=== PATIENT | female | born 1985 | race Caucasian/White ===

== ENCOUNTER 2017-03-25 14:21 | Inpatient (IN) | payer OTHER ==
[~2017-03-25] VITALS: Ht 167.6 cm; Wt 102.3 kg
[~2017-03-25 14:21] MED LIST: HYDR-3240 PO; IBUP-1222 PO; Oxycodone Hcl/Acetaminophen PO; PREN1TAB52 PO; RANI150T8 PO
[2017-03-25] MEDS ORDERED: ONDANSETRON ODT 4 MG ONE (14:36)
[2017-03-25] MEDS ORDERED: SODIUM CHLORIDE FLUSH 10ML SYR IVF ONE (15:00)
[2017-03-25] MEDS ORDERED: ONDANSETRON ODT 4 MG PO ONE (15:00)
[2017-03-25] MEDS ORDERED: SODIUM CHLORIDE 0.9% 1,000ML IVBOLUS ONE ×2 (15:00→18:30)
[2017-03-25] MEDS ORDERED: PLEASE ENTER ALLERGIES MC SCH ×2 (15:00)
[2017-03-25 15:05] LABS: ASPARTATE AMINO TRANSFERASE 85 U/L (15-37); BLOOD UREA NITROGEN 9 mg/dL (7-18)
[2017-03-25] MEDS ORDERED: MORPHINE SULFATE 4 MG/ML, 1ML ONE ×2 (16:12→16:39)
[2017-03-25] MEDS ORDERED: ONDANSETRON 2MG/ML, 2ML ONE (16:13)
[2017-03-25] MEDS: MORPHINE SULFATE 4 MG/ML, 1ML IVPush PRN ×2 (16:16→16:41)
[2017-03-25] MEDS ORDERED: ONDANSETRON 2MG/ML, 2ML IVPush ONE (16:30)
[2017-03-25] MEDS ORDERED: LORazepam 2 MG/ML, 1ML ONE (17:01)
[2017-03-25] MEDS ORDERED: LORazepam 2 MG/ML, 1ML IVPush ONE (17:30)
[2017-03-25] MEDS ORDERED: OMNIPAQUE 350 MG/ML, 100ML BOTTLE ONE (17:58)
[2017-03-25] MEDS ORDERED: HYDROmorphone 1 MG/ML, 1ML ONE ×2 (17:59→19:09)
[2017-03-25] MEDS: HYDROmorphone 1 MG/ML, 1ML IVPush PRN ×2 (18:01→19:14)
[2017-03-25 18:05] LABS: HCG UR OBC PASS
[2017-03-25] MEDS ORDERED: CEFTRIAXONE PMX 1GM/50ML 50 ML IV ONE (18:30)
[2017-03-25] MEDS ORDERED: CEFTRIAXONE PMX 1GM/50ML 50 ML ONE (18:53)
[2017-03-25] MEDS ORDERED: hydrALAzine 20 MG/ML, 1ML IVPush PRN (19:30)
[2017-03-25] MEDS ORDERED: LORazepam 2 MG/ML, 1ML IVPush PRN (19:30)
[2017-03-25] MEDS ORDERED: morphine SULFATE 10 MG/ML, 1ML IVPush PRN (19:30)
[2017-03-25 20:05] VITALS: BP 156/98
[2017-03-25] MEDS: HYDROmorphone 1 MG/ML, 1ML IV PRN (22:59)
[2017-03-25] MEDS: SODIUM CHLORIDE 0.9% 1,000 ML IV SCH (23:05)
[2017-03-26 00:41] VITALS: BP 136/72
[2017-03-26] MEDS: HYDROmorphone 1 MG/ML, 1ML IV PRN ×7 (03:07→22:34)
[2017-03-26 06:06] LABS: BLOOD UREA NITROGEN 7 mg/dL (7-18)
[2017-03-26] MEDS: SODIUM CHLORIDE 0.9% 1,000 ML IV SCH ×2 (06:17→15:21)
[2017-03-26] MEDS ORDERED: CEFTRIAXONE PMX 1GM/50ML 50 ML IV SCH (07:00)
[2017-03-26 07:37] VITALS: BP 123/87
[2017-03-26] MEDS: PANTOPRAZOLE 40 MG IV IVPush SCH (07:55)
[2017-03-26] MEDS ORDERED: MAGNESIUM SULFATE PMX 4GM/100M 100 ML IV ONE (10:30)
[2017-03-26 12:45] VITALS: BP 128/81
[2017-03-26] MEDS: PIPERACILLIN/TAZO 3.375 GM in SODIUM CHLORIDE 0.9% 50 ML IV SCH ×2 (14:23→21:40)
[2017-03-26 20:10] VITALS: BP 135/83
[2017-03-26] MEDS ORDERED: MAGNESIUM OXIDE 400 MG TABLET PO SCH (21:00)
[2017-03-27] MEDS: HYDROmorphone 1 MG/ML, 1ML IV PRN (00:23)
[2017-03-27] MEDS ORDERED: HYDROmorphone 1 MG/ML, 1ML ONE (01:24)
[2017-03-27] MEDS: HYDROmorphone 2 MG/ML, 1ML IVPush PRN ×10 (01:28→21:59)
[2017-03-27] MEDS: SODIUM CHLORIDE 0.9% 1,000 ML IV SCH ×3 (03:28→22:00)
[2017-03-27] MEDS: PIPERACILLIN/TAZO 3.375 GM in SODIUM CHLORIDE 0.9% 50 ML IV SCH ×4 (03:28→21:59)
[2017-03-27 03:59] VITALS: BP 124/86
[2017-03-27 06:21] LABS: ASPARTATE AMINO TRANSFERASE 15 U/L (15-37); BLOOD UREA NITROGEN 9 mg/dL (7-18)
[2017-03-27 07:06] VITALS: BP 131/89
[2017-03-27] MEDS: PANTOPRAZOLE 40 MG IV IVPush SCH (07:42)
[2017-03-27 12:12] VITALS: BP 129/88
[2017-03-27 20:03] VITALS: BP 133/88
[2017-03-28] MEDS: HYDROmorphone 2 MG/ML, 1ML IVPush PRN ×8 (01:55→22:22)
[2017-03-28 02:20] VITALS: BP 128/80
[2017-03-28] MEDS: PIPERACILLIN/TAZO 3.375 GM in SODIUM CHLORIDE 0.9% 50 ML IV SCH ×3 (04:09→18:19)
[2017-03-28] MEDS: SODIUM CHLORIDE 0.9% 1,000 ML IV SCH ×2 (06:30→22:22)
[2017-03-28 07:49] VITALS: BP 127/87
[2017-03-28] MEDS: PANTOPRAZOLE 40 MG IV IVPush SCH (08:23)
[2017-03-28] MEDS ORDERED: FENTANYL PF 250 MCG/5ML ONE (09:43)
[2017-03-28] MEDS ORDERED: MIDAZOLAM 1 MG/ML, 2ML ONE (09:43)
[2017-03-28] MEDS ORDERED: DEXAMETHASONE 4 MG/ML, 1ML ONE (09:54)
[2017-03-28] MEDS ORDERED: PROPOFOL 10 MG/ML, 20ML ONE (09:54)
[2017-03-28] MEDS ORDERED: ONDANSETRON 2MG/ML, 2ML ONE (09:54)
[2017-03-28] MEDS ORDERED: SUCCINYLCHOLINE 20 MG/ML, 10ML ONE (09:54)
[2017-03-28] MEDS ORDERED: PIPERACILLIN/TAZO 3.375 GM VIAL ONE (09:54)
[2017-03-28] MEDS ORDERED: hydrALAzine 20 MG/ML, 1ML IV PRN (10:30)
[2017-03-28] MEDS ORDERED: LABETALOL 5MG/ML, 20ML IV PRN (10:30)
[2017-03-28] MEDS ORDERED: KETOROLAC 30 MG/1 ML IV PRN (10:30)
[2017-03-28] MEDS ORDERED: ONDANSETRON 2MG/ML, 2ML IVPush PRN (10:30)
[2017-03-28] MEDS ORDERED: ALBUTEROL/IPRATROPIUM 2.5MG/0.5MG, 3 ML NPPB PRN (10:30)
[2017-03-28] MEDS ORDERED: FENTANYL PF 100 MCG/2ML IV PRN (10:30)
[2017-03-28] MEDS ORDERED: OXYcodone 5 MG/5 ML ORAL.SOL UDC PO PRN (10:30)
[2017-03-28] MEDS ORDERED: MEPERIDINE/PF 25MG/0.5ML IVPush PRN (10:30)
[2017-03-28] MEDS ORDERED: HYDROmorphone 1 MG/ML, 1ML IV PRN (10:30)
[2017-03-28] MEDS ORDERED: MIDAZOLAM 1 MG/ML, 2ML IV PRN (10:30)
[2017-03-28] MEDS ORDERED: PROMETHAZINE 25 MG/ML, 1ML IV PRN (10:30)
[2017-03-28] MEDS ORDERED: HYDROmorphone 2 MG/ML, 1ML ONE (10:56)
[2017-03-28 12:30] VITALS: BP 118/77
[2017-03-28 13:23] LABS: ASPARTATE AMINO TRANSFERASE 15 U/L (15-37); BLOOD UREA NITROGEN 7 mg/dL (7-18)
[2017-03-28] MEDS ORDERED: MIDAZOLAM 1 MG/ML, 5ML ONE (14:30)
[2017-03-28] MEDS ORDERED: NALOXONE 1 MG/ML, 2ML ONE (14:31)
[2017-03-28] MEDS ORDERED: FLUMAZENIL 0.1 MG/1 ML, 5ML ONE (14:31)
[2017-03-28] MEDS ORDERED: FENTANYL PF 100 MCG/2ML ONE (14:31)
[2017-03-28] MEDS ORDERED: LIDOCAINE 1%, 20ML ONE (14:52)
[2017-03-28 20:13] VITALS: BP 127/82
[2017-03-29] MEDS: HYDROmorphone 2 MG/ML, 1ML IVPush PRN ×8 (00:39→23:18)
[2017-03-29] MEDS: PIPERACILLIN/TAZO 3.375 GM in SODIUM CHLORIDE 0.9% 50 ML IV SCH ×4 (00:39→19:27)
[2017-03-29 02:36] VITALS: BP 139/90
[2017-03-29 05:49] LABS: ASPARTATE AMINO TRANSFERASE 20 U/L (15-37); BLOOD UREA NITROGEN 5 mg/dL (7-18)
[2017-03-29] MEDS: SODIUM CHLORIDE 0.9% 1,000 ML IV SCH ×2 (06:49→17:27)
[2017-03-29 08:41] VITALS: BP 141/95
[2017-03-29] MEDS: PANTOPRAZOLE 40 MG IV IVPush SCH (09:19)
[2017-03-29 15:55] VITALS: BP 134/90
[2017-03-29] MEDS: OXYcodone/APAP 5/325MG TABLET PO PRN ×2 (15:58→21:31)
[2017-03-29 20:00] VITALS: BP 139/95
[2017-03-30] MEDS: PIPERACILLIN/TAZO 3.375 GM in SODIUM CHLORIDE 0.9% 50 ML IV SCH ×4 (01:25→19:51)
[2017-03-30 02:49] VITALS: BP 114/79
[2017-03-30] MEDS: OXYcodone/APAP 5/325MG TABLET PO PRN (02:50)
[2017-03-30 05:36] LABS: ASPARTATE AMINO TRANSFERASE 32 U/L (15-37); BLOOD UREA NITROGEN 9 mg/dL (7-18)
[2017-03-30] MEDS: HYDROmorphone 2 MG/ML, 1ML IVPush PRN ×2 (06:17→08:17)
[2017-03-30] MEDS ORDERED: POTASSIUM CHLORIDE 20 MEQ TAB.ER.PRT PO ONE (07:30)
[2017-03-30] MEDS: PANTOPRAZOLE 40 MG IV IVPush SCH (08:17)
[2017-03-30] MEDS: SODIUM CHLORIDE 0.9% 1,000 ML IV SCH (08:17)
[2017-03-30 08:22] VITALS: BP 133/97
[2017-03-30] MEDS ORDERED: OXYcodone/APAP 10/325MG TABLET PO PRN (09:00)
[2017-03-30 14:00] VITALS: BP 147/94
[2017-03-30] MEDS ORDERED: HYDROcodone/APAP 10/325 MG TABLET ONE (14:05)
[2017-03-30] MEDS: HYDROcodone/APAP 10/325 MG TABLET PO PRN ×3 (14:06→22:07)
[2017-03-30 18:39] VITALS: BP 131/93
[2017-03-31] MEDS: HYDROmorphone 2 MG/ML, 1ML IVPush PRN ×3 (00:59→21:05)
[2017-03-31] MEDS: PIPERACILLIN/TAZO 3.375 GM in SODIUM CHLORIDE 0.9% 50 ML IV SCH ×4 (01:58→23:00)
[2017-03-31] MEDS: HYDROcodone/APAP 10/325 MG TABLET PO PRN ×2 (01:59→07:34)
[2017-03-31 02:20] VITALS: BP 143/88
[2017-03-31] MEDS: PANTOPRAZOLE 40 MG IV IVPush SCH (07:34)
[2017-03-31] MEDS ORDERED: DOCUSATE 100 MG CAPSULE PO PRN (08:30)
[2017-03-31 08:40] VITALS: BP 142/96
[2017-03-31 09:10] LABS: ASPARTATE AMINO TRANSFERASE 76 U/L (15-37); BLOOD UREA NITROGEN 3 mg/dL (7-18)
[2017-03-31] MEDS: HYDROmorphone 2MG TABLET PO PRN ×2 (10:39→16:31)
[2017-03-31] MEDS ORDERED: ONDA4TAB10 PO (13:13)
[2017-03-31] MEDS ORDERED: HYDR2TAB40 PO (13:13)
[2017-03-31] MEDS ORDERED: AMOX1TAB64 PO (13:13)
[2017-03-31] MEDS: ONDANSETRON 2MG/ML, 2ML IVPush PRN (13:30)
[2017-03-31] MEDS: PROMETHAZINE 25 MG/ML, 1ML IM PRN ×2 (14:21→17:44)
[2017-03-31 14:25] VITALS: BP 145/98
[2017-03-31] MEDS ORDERED: NS + 40MEQ KCL 1,000 ML IV SCH (14:30)
[2017-03-31 18:54] VITALS: BP 132/87
[2017-04-01] MEDS: HYDROmorphone 2 MG/ML, 1ML IVPush PRN ×5 (02:24→22:07)
[2017-04-01 02:31] VITALS: BP 135/91
[2017-04-01] MEDS: PIPERACILLIN/TAZO 3.375 GM in SODIUM CHLORIDE 0.9% 50 ML IV SCH ×4 (04:40→23:14)
[2017-04-01 06:02] LABS: ASPARTATE AMINO TRANSFERASE 103 U/L (15-37); BLOOD UREA NITROGEN 3 mg/dL (7-18)
[2017-04-01 07:45] VITALS: BP 159/99
[2017-04-01] MEDS: ONDANSETRON 2MG/ML, 2ML IVPush PRN (07:46)
[2017-04-01] MEDS: PANTOPRAZOLE 40 MG IV IVPush SCH (07:46)
[2017-04-01] MEDS ORDERED: OCTREOTIDE 500 MCG/ML, 1ML (0.5MG/ML) SQ SCH (09:30)
[2017-04-01] MEDS: SODIUM CHLORIDE 0.9% 1,000 ML IV SCH ×2 (10:46→18:06)
[2017-04-01] MEDS: DIAZEPAM 5 MG/ML, 2ML IV PRN ×2 (10:59→20:35)
[2017-04-01] MEDS: OCTREOTIDE 100MCG/ML, 1ML (0.1MG/ML) SQ SCH ×2 (11:26→22:09)
[2017-04-01 13:56] VITALS: BP 142/94
[2017-04-01] MEDS: ENOXAPARIN 40 MG/0.4 ML SQ SCH (19:34)
[2017-04-01 20:00] VITALS: BP 154/96
[2017-04-01] MEDS ORDERED: OCTREOTIDE 100MCG/ML, 1ML (0.1MG/ML) SQ SCH (21:00)
[2017-04-02] MEDS: HYDROmorphone 2 MG/ML, 1ML IVPush PRN ×7 (01:44→20:58)
[2017-04-02] MEDS: SODIUM CHLORIDE 0.9% 1,000 ML IV SCH ×4 (01:47→19:45)
[2017-04-02 04:06] VITALS: BP 127/90
[2017-04-02] MEDS: PIPERACILLIN/TAZO 3.375 GM in SODIUM CHLORIDE 0.9% 50 ML IV SCH ×4 (04:44→22:25)
[2017-04-02 06:14] LABS: ASPARTATE AMINO TRANSFERASE 29 U/L (15-37); BLOOD UREA NITROGEN 3 mg/dL (7-18)
[2017-04-02 07:24] VITALS: BP 138/84
[2017-04-02] MEDS: PANTOPRAZOLE 40 MG IV IVPush SCH (08:23)
[2017-04-02] MEDS: SUCRALFATE 1 GM/10 ML UDC PO SCH ×3 (11:09→19:45)
[2017-04-02] MEDS: OCTREOTIDE 100MCG/ML, 1ML (0.1MG/ML) SQ SCH ×2 (11:29→21:03)
[2017-04-02 14:37] VITALS: BP 137/91
[2017-04-02] MEDS: ENOXAPARIN 40 MG/0.4 ML SQ SCH (19:45)
[2017-04-02 20:29] VITALS: BP 138/88
[2017-04-03] MEDS: HYDROmorphone 2 MG/ML, 1ML IVPush PRN ×8 (00:18→23:32)
[2017-04-03 03:04] VITALS: BP 142/96
[2017-04-03] MEDS: PIPERACILLIN/TAZO 3.375 GM in SODIUM CHLORIDE 0.9% 50 ML IV SCH ×4 (04:18→22:22)
[2017-04-03] MEDS: SODIUM CHLORIDE 0.9% 1,000 ML IV SCH ×3 (04:19→21:26)
[2017-04-03 05:20] LABS: ASPARTATE AMINO TRANSFERASE 29 U/L (15-37); BLOOD UREA NITROGEN 3 mg/dL (7-18)
[2017-04-03] MEDS: SUCRALFATE 1 GM/10 ML UDC PO SCH ×4 (06:22→20:19)
[2017-04-03 07:21] VITALS: BP 153/96
[2017-04-03] MEDS: PANTOPRAZOLE 40 MG IV IVPush SCH (07:54)
[2017-04-03] MEDS: OCTREOTIDE 100MCG/ML, 1ML (0.1MG/ML) SQ SCH ×2 (09:58→20:19)
[2017-04-03] MEDS ORDERED: OMNIPAQUE 350 MG/ML, 100ML BOTTLE ONE (12:07)
[2017-04-03 15:00] VITALS: BP 157/104
[2017-04-03] MEDS: ONDANSETRON 2MG/ML, 2ML IVPush PRN (16:02)
[2017-04-03] MEDS: METOPROLOL TARTRATE 25 MG TABLET PO SCH (17:34)
[2017-04-03] MEDS: PROMETHAZINE 25 MG/ML, 1ML IM PRN (18:45)
[2017-04-03 18:59] VITALS: BP 142/93
[2017-04-03] MEDS ORDERED: hydrALAzine 20 MG/ML, 1ML IVPush PRN (19:30)
[2017-04-03] MEDS ORDERED: HYDROmorphone 1 MG/ML, 1ML ONE (20:16)
[2017-04-03] MEDS: ENOXAPARIN 40 MG/0.4 ML SQ SCH (20:19)
[2017-04-04 01:32] VITALS: BP 129/85
[2017-04-04] MEDS ORDERED: HYDROmorphone 1 MG/ML, 1ML ONE ×4 (02:57→12:19)
[2017-04-04] MEDS: HYDROmorphone 2 MG/ML, 1ML IVPush PRN ×8 (03:00→21:28)
[2017-04-04] MEDS: SODIUM CHLORIDE 0.9% 1,000 ML IV SCH ×3 (04:35→20:53)
[2017-04-04] MEDS: PIPERACILLIN/TAZO 3.375 GM in SODIUM CHLORIDE 0.9% 50 ML IV SCH ×3 (04:35→17:55)
[2017-04-04] MEDS: METOPROLOL TARTRATE 25 MG TABLET PO SCH (04:36)
[2017-04-04] MEDS: SUCRALFATE 1 GM/10 ML UDC PO SCH ×4 (06:00→20:54)
[2017-04-04 06:18] LABS: BLOOD UREA NITROGEN 2 mg/dL (7-18)
[2017-04-04 06:27] LABS: ASPARTATE AMINO TRANSFERASE 31 U/L (15-37)
[2017-04-04 08:30] VITALS: BP 136/92
[2017-04-04] MEDS: LISINOPRIL 10 MG TABLET PO SCH (09:21)
[2017-04-04] MEDS: OCTREOTIDE 100MCG/ML, 1ML (0.1MG/ML) SQ SCH ×2 (09:21→20:54)
[2017-04-04] MEDS: PANTOPRAZOLE 40 MG IV IVPush SCH (09:21)
[2017-04-04] MEDS: HYDROcodone/APAP 10/325 MG TABLET PO PRN (14:11)
[2017-04-04 14:16] VITALS: BP 145/90
[2017-04-04] MEDS: ONDANSETRON 2MG/ML, 2ML IVPush PRN (15:43)
[2017-04-04] MEDS: METOPROLOL TARTRATE 50 MG TABLET PO SCH (17:55)
[2017-04-04 19:45] VITALS: BP 144/96
[2017-04-04] MEDS: ENOXAPARIN 40 MG/0.4 ML SQ SCH (20:54)
[2017-04-05] MEDS: PIPERACILLIN/TAZO 3.375 GM in SODIUM CHLORIDE 0.9% 50 ML IV SCH ×4 (00:30→17:47)
[2017-04-05] MEDS: HYDROmorphone 2 MG/ML, 1ML IVPush PRN ×10 (00:30→22:02)
[2017-04-05] MEDS: HYDROcodone/APAP 10/325 MG TABLET PO PRN ×2 (01:30→05:17)
[2017-04-05 01:47] VITALS: BP 127/78
[2017-04-05] MEDS: SODIUM CHLORIDE 0.9% 1,000 ML IV SCH ×3 (03:50→21:13)
[2017-04-05] MEDS: METOPROLOL TARTRATE 50 MG TABLET PO SCH ×2 (06:17→17:47)
[2017-04-05] MEDS: SUCRALFATE 1 GM/10 ML UDC PO SCH ×4 (06:17→21:13)
[2017-04-05] MEDS: LISINOPRIL 10 MG TABLET PO SCH (08:08)
[2017-04-05] MEDS: PANTOPRAZOLE 40 MG IV IVPush SCH (08:09)
[2017-04-05] MEDS: OCTREOTIDE 100MCG/ML, 1ML (0.1MG/ML) SQ SCH ×2 (08:09→21:13)
[2017-04-05 09:14] VITALS: BP 139/89
[2017-04-05 09:39] LABS: ASPARTATE AMINO TRANSFERASE 25 U/L (15-37); BLOOD UREA NITROGEN < 1 mg/dL (7-18)
[2017-04-05 12:40] VITALS: BP 147/97
[2017-04-05 19:13] VITALS: BP 140/97
[2017-04-05] MEDS: ONDANSETRON 2MG/ML, 2ML IVPush PRN (20:06)
[2017-04-05] MEDS: ENOXAPARIN 40 MG/0.4 ML SQ SCH (21:13)
[2017-04-06] MEDS: HYDROmorphone 2 MG/ML, 1ML IVPush PRN ×10 (00:26→22:43)
[2017-04-06] MEDS: PIPERACILLIN/TAZO 3.375 GM in SODIUM CHLORIDE 0.9% 50 ML IV SCH ×4 (00:27→18:32)
[2017-04-06 02:32] VITALS: BP 136/94
[2017-04-06] MEDS: SUCRALFATE 1 GM/10 ML UDC PO SCH ×5 (03:28→20:40)
[2017-04-06] MEDS: SODIUM CHLORIDE 0.9% 1,000 ML IV SCH ×3 (04:25→20:41)
[2017-04-06 05:07] LABS: ASPARTATE AMINO TRANSFERASE 20 U/L (15-37)
[2017-04-06 05:13] LABS: BLOOD UREA NITROGEN < 1 mg/dL (7-18)
[2017-04-06] MEDS: METOPROLOL TARTRATE 50 MG TABLET PO SCH ×2 (06:17→18:24)
[2017-04-06 07:41] VITALS: BP 146/92
[2017-04-06] MEDS: PANTOPRAZOLE 40 MG IV IVPush SCH (08:37)
[2017-04-06] MEDS: LISINOPRIL 10 MG TABLET PO SCH ×3 (08:37→09:00)
[2017-04-06] MEDS: OCTREOTIDE 100MCG/ML, 1ML (0.1MG/ML) SQ SCH ×2 (08:38→20:39)
[2017-04-06] MEDS ORDERED: PROPOFOL 10 MG/ML, 20ML ONE (09:40)
[2017-04-06] MEDS ORDERED: ONDANSETRON 2MG/ML, 2ML ONE (09:40)
[2017-04-06] MEDS ORDERED: SUCCINYLCHOLINE 20 MG/ML, 10ML ONE (09:40)
[2017-04-06] MEDS ORDERED: DEXAMETHASONE 4 MG/ML, 1ML ONE (09:40)
[2017-04-06 09:43] LABS: HCG UR OBC PASS
[2017-04-06] MEDS ORDERED: MIDAZOLAM 1 MG/ML, 2ML IV PRN (10:00)
[2017-04-06] MEDS ORDERED: FENTANYL PF 100 MCG/2ML IV PRN (10:00)
[2017-04-06] MEDS ORDERED: ONDANSETRON 2MG/ML, 2ML IVPush PRN (10:00)
[2017-04-06] MEDS ORDERED: HYDROmorphone 1 MG/ML, 1ML IV PRN (10:00)
[2017-04-06] MEDS ORDERED: MEPERIDINE/PF 25MG/0.5ML IVPush PRN (10:00)
[2017-04-06] MEDS ORDERED: OXYcodone 5 MG/5 ML ORAL.SOL UDC PO PRN (10:00)
[2017-04-06] MEDS ORDERED: OMNIPAQUE 350 MG/ML, 50 ML BOTTLE ONE (10:20)
[2017-04-06 12:30] VITALS: BP 110/82
[2017-04-06 20:22] VITALS: BP 142/94
[2017-04-06] MEDS: ENOXAPARIN 40 MG/0.4 ML SQ SCH (20:39)
[2017-04-07] MEDS: PIPERACILLIN/TAZO 3.375 GM in SODIUM CHLORIDE 0.9% 50 ML IV SCH ×4 (00:11→18:33)
[2017-04-07] MEDS: ONDANSETRON 2MG/ML, 2ML IVPush PRN ×3 (00:11→22:29)
[2017-04-07 00:24] VITALS: BP 132/83
[2017-04-07] MEDS: HYDROmorphone 2 MG/ML, 1ML IVPush PRN ×8 (00:51→22:29)
[2017-04-07] MEDS: SODIUM CHLORIDE 0.9% 1,000 ML IV SCH ×3 (03:53→18:28)
[2017-04-07 04:50] VITALS: BP 136/95
[2017-04-07 06:06] LABS: ASPARTATE AMINO TRANSFERASE 22 U/L (15-37)
[2017-04-07 06:14] LABS: BLOOD UREA NITROGEN < 1 mg/dL (7-18)
[2017-04-07] MEDS: SUCRALFATE 1 GM/10 ML UDC PO SCH ×4 (06:27→22:29)
[2017-04-07] MEDS: METOPROLOL TARTRATE 50 MG TABLET PO SCH ×2 (06:28→18:28)
[2017-04-07 06:35] VITALS: BP 137/90
[2017-04-07] MEDS: OCTREOTIDE 100MCG/ML, 1ML (0.1MG/ML) SQ SCH ×2 (09:24→10:37)
[2017-04-07] MEDS: PANTOPRAZOLE 40 MG IV IVPush SCH (09:24)
[2017-04-07] MEDS: LISINOPRIL 10 MG TABLET PO SCH (09:24)
[2017-04-07] MEDS: HYDROmorphone 2MG TABLET PO PRN (13:27)
[2017-04-07 15:45] VITALS: BP 148/95
[2017-04-07] MEDS: PROMETHAZINE 25 MG/ML, 1ML IM PRN (16:59)
[2017-04-07 22:27] VITALS: BP 147/92
[2017-04-07] MEDS: ENOXAPARIN 40 MG/0.4 ML SQ SCH (22:29)
[2017-04-08] MEDS: HYDROmorphone 2 MG/ML, 1ML IVPush PRN ×10 (00:44→23:06)
[2017-04-08] MEDS: PIPERACILLIN/TAZO 3.375 GM in SODIUM CHLORIDE 0.9% 50 ML IV SCH ×5 (00:44→23:06)
[2017-04-08 02:30] VITALS: BP 146/95
[2017-04-08] MEDS: SODIUM CHLORIDE 0.9% 1,000 ML IV SCH ×4 (02:36→23:10)
[2017-04-08] MEDS: SUCRALFATE 1 GM/10 ML UDC PO SCH ×5 (06:12→21:00)
[2017-04-08] MEDS: METOPROLOL TARTRATE 50 MG TABLET PO SCH ×2 (06:12→18:00)
[2017-04-08 06:22] LABS: ASPARTATE AMINO TRANSFERASE 41 U/L (15-37); BLOOD UREA NITROGEN 1 mg/dL (7-18)
[2017-04-08 08:04] VITALS: BP 135/91
[2017-04-08] MEDS: ONDANSETRON 2MG/ML, 2ML IVPush PRN ×3 (09:01→23:05)
[2017-04-08] MEDS: LISINOPRIL 10 MG TABLET PO SCH (09:02)
[2017-04-08] MEDS: HYDROmorphone 2MG TABLET PO PRN ×2 (09:02→11:09)
[2017-04-08] MEDS: PANTOPRAZOLE 40 MG IV IVPush SCH (09:02)
[2017-04-08 12:39] VITALS: BP 140/84
[2017-04-08] MEDS: PROMETHAZINE 25 MG/ML, 1ML IM PRN ×2 (13:50→20:55)
[2017-04-08] MEDS ORDERED: POTASSIUM CHLORIDE 80 MEQ in SODIUM CHLORIDE 0.9% 1,000 ML IV ONE (14:00)
[2017-04-08 18:57] VITALS: BP 134/90
[2017-04-08] MEDS: ENOXAPARIN 40 MG/0.4 ML SQ SCH (20:55)
[2017-04-08] MEDS ORDERED: HYDROmorphone 1 MG/ML, 1ML ONE (22:51)
[2017-04-09] MEDS ORDERED: HYDROmorphone 1 MG/ML, 1ML ONE ×2 (01:12→03:32)
[2017-04-09] MEDS: HYDROmorphone 2 MG/ML, 1ML IVPush PRN (01:15)
[2017-04-09] MEDS: DIAZEPAM 5 MG/ML, 2ML IV PRN ×2 (01:24→13:05)
[2017-04-09 02:37] VITALS: BP 148/92
[2017-04-09] MEDS: HYDROmorphone 1 MG/ML, 1ML IV PRN ×3 (03:38→08:19)
[2017-04-09 05:35] LABS: BLOOD UREA NITROGEN 1 mg/dL (7-18)
[2017-04-09 05:40] LABS: ASPARTATE AMINO TRANSFERASE 60 U/L (15-37)
[2017-04-09] MEDS: ONDANSETRON 2MG/ML, 2ML IVPush PRN ×4 (05:45→22:18)
[2017-04-09] MEDS: SUCRALFATE 1 GM/10 ML UDC PO SCH ×4 (05:46→22:38)
[2017-04-09] MEDS: PIPERACILLIN/TAZO 3.375 GM in SODIUM CHLORIDE 0.9% 50 ML IV SCH ×3 (05:46→18:39)
[2017-04-09] MEDS: METOPROLOL TARTRATE 50 MG TABLET PO SCH ×2 (05:46→18:00)
[2017-04-09] MEDS: SODIUM CHLORIDE 0.9% 1,000 ML IV SCH ×3 (05:46→17:56)
[2017-04-09 07:53] VITALS: BP 146/96
[2017-04-09] MEDS: PANTOPRAZOLE 40 MG IV IVPush SCH (08:19)
[2017-04-09] MEDS: LISINOPRIL 10 MG TABLET PO SCH (08:20)
[2017-04-09] MEDS ORDERED: TPN PER PHARMACY MC PRN (10:00)
[2017-04-09] MEDS ORDERED: ONDANSETRON 2MG/ML, 2ML ONE (10:04)
[2017-04-09] MEDS: MORPHINE SULFATE 4 MG/ML, 1ML IVPush PRN ×4 (10:15→22:19)
[2017-04-09] MEDS: POTASSIUM CHLORIDE 40 MEQ in SODIUM CHLORIDE 0.9% 500 ML IV SCH ×2 (10:15→17:01)
[2017-04-09 12:46] VITALS: BP 153/88
[2017-04-09] MEDS ORDERED: [UNRECOGNIZED DRUG - OTHER] IV SCH (17:00)
[2017-04-09] MEDS ORDERED: AMINO ACID 10% IV SCH ×2 (17:00)
[2017-04-09] MEDS ORDERED: DEXTROSE 50%, 50ML SYRINGE IVPush PRN (17:00)
[2017-04-09] MEDS ORDERED: FAT EMULSIONS IV SCH ×2 (17:00)
[2017-04-09] MEDS ORDERED: [UNRECOGNIZED DRUG - OTHER] IV SCH (17:00)
[2017-04-09] MEDS ORDERED: DEXTROSE 10% 500 ML IV PRN (17:00)
[2017-04-09] MEDS ORDERED: DEXTROSE 70% IV SCH ×2 (17:00)
[2017-04-09] MEDS: PROMETHAZINE 25 MG/ML, 1ML IM PRN (17:54)
[2017-04-09] MEDS: FILTER, DISP 1.2 MICRON FOR TPN/PVN IV PRN (17:54)
[2017-04-09 19:20] VITALS: BP 145/94
[2017-04-09] MEDS: ENOXAPARIN 40 MG/0.4 ML SQ SCH (22:29)
[2017-04-09] MEDS: INSULIN REGULAR LOW DOSE Q6H X 48HRS SQ-INSULIN SCH ×2 (22:39→23:07)
[2017-04-10] MEDS: PIPERACILLIN/TAZO 3.375 GM in SODIUM CHLORIDE 0.9% 50 ML IV SCH ×4 (00:44→18:52)
[2017-04-10] MEDS: MORPHINE SULFATE 4 MG/ML, 1ML IVPush PRN ×7 (01:35→22:55)
[2017-04-10 02:00] VITALS: BP 133/84
[2017-04-10] MEDS: PROMETHAZINE 25 MG/ML, 1ML IM PRN (02:58)
[2017-04-10] MEDS: INSULIN REGULAR LOW DOSE Q6H X 48HRS SQ-INSULIN SCH ×3 (05:45→17:00)
[2017-04-10 06:27] LABS: ASPARTATE AMINO TRANSFERASE 20 U/L (15-37); BLOOD UREA NITROGEN 4 mg/dL (7-18)
[2017-04-10] MEDS: METOPROLOL TARTRATE 50 MG TABLET PO SCH ×2 (06:45→18:00)
[2017-04-10] MEDS: SUCRALFATE 1 GM/10 ML UDC PO SCH ×4 (06:46→22:55)
[2017-04-10 07:49] VITALS: BP 132/85
[2017-04-10] MEDS: SODIUM PHOSPHATE 10 MMOL in SODIUM CHLORIDE 0.9% 500 ML IV ONE ×2 (08:30→15:43)
[2017-04-10] MEDS ORDERED: MAGNESIUM SULFATE PMX 4GM/100M 100 ML IV ONE (08:30)
[2017-04-10] MEDS: ONDANSETRON 2MG/ML, 2ML IVPush PRN ×3 (08:39→18:52)
[2017-04-10] MEDS: SODIUM CHLORIDE 0.9% 1,000 ML IV SCH (08:39)
[2017-04-10] MEDS: LISINOPRIL 10 MG TABLET PO SCH (09:00)
[2017-04-10] MEDS: HYDROcodone/APAP 10/325 MG TABLET PO PRN (09:38)
[2017-04-10] MEDS: PANTOPRAZOLE 40 MG IV IVPush SCH (09:50)
[2017-04-10 13:52] VITALS: BP 120/79
[2017-04-10] MEDS ORDERED: AMINO ACID 10% IV SCH (17:00)
[2017-04-10] MEDS ORDERED: FAT EMULSIONS IV SCH (17:00)
[2017-04-10] MEDS ORDERED: DEXTROSE 70% IV SCH (17:00)
[2017-04-10] MEDS ORDERED: [UNRECOGNIZED DRUG - OTHER] IV SCH (17:00)
[2017-04-10] MEDS: DIAZEPAM 5 MG/ML, 2ML IV PRN (17:13)
[2017-04-10 19:30] VITALS: BP 133/85
[2017-04-10] MEDS ORDERED: HYDROmorphone 1 MG/ML, 1ML IV ONE ×2 (20:00→21:30)
[2017-04-10] MEDS ORDERED: VANCOMYCIN PER PHARMACY MC PRN (20:00)
[2017-04-10] MEDS ORDERED: PHARMACOKINETIC MONITORING MC PRN (20:30)
[2017-04-10] MEDS ORDERED: PHARMACOKINETIC CONSULTATION MC ONE (20:30)
[2017-04-10] MEDS: VANCOMYCIN 1,900 MG in SODIUM CHLORIDE 0.9% 250 ML IV SCH (22:53)
[2017-04-10] MEDS: ENOXAPARIN 40 MG/0.4 ML SQ SCH (23:04)
[2017-04-11] MEDS: ONDANSETRON 2MG/ML, 2ML IVPush PRN ×5 (00:18→21:18)
[2017-04-11] MEDS: PIPERACILLIN/TAZO 3.375 GM in SODIUM CHLORIDE 0.9% 50 ML IV SCH ×3 (00:54→12:18)
[2017-04-11] MEDS: DIAZEPAM 5 MG/ML, 2ML IV PRN (01:12)
[2017-04-11] MEDS: MORPHINE SULFATE 4 MG/ML, 1ML IVPush PRN ×3 (03:02→09:10)
[2017-04-11 03:35] VITALS: BP 131/82
[2017-04-11] MEDS: METOPROLOL TARTRATE 50 MG TABLET PO SCH ×2 (04:57→18:00)
[2017-04-11] MEDS: SUCRALFATE 1 GM/10 ML UDC PO SCH ×4 (04:57→20:38)
[2017-04-11] MEDS: PROMETHAZINE 25 MG/ML, 1ML IM PRN ×2 (05:04→14:46)
[2017-04-11] MEDS: INSULIN REGULAR LOW DOSE Q6H X 48HRS SQ-INSULIN SCH ×3 (05:23→17:00)
[2017-04-11 05:45] LABS: PATH.CAST-FLAG NOT PRESENT; SPERM-FLAG NOT PRESENT; SRC-FLAG NOT PRESENT; XTAL-FLAG NOT PRESENT; YLC-FLAG NOT PRESENT
[2017-04-11 06:15] LABS: ASPARTATE AMINO TRANSFERASE 29 U/L (15-37); BLOOD UREA NITROGEN 7 mg/dL (7-18)
[2017-04-11] MEDS: LISINOPRIL 10 MG TABLET PO SCH (07:56)
[2017-04-11] MEDS: PANTOPRAZOLE 40 MG IV IVPush SCH (07:56)
[2017-04-11] MEDS: VANCOMYCIN 1,900 MG in SODIUM CHLORIDE 0.9% 250 ML IV SCH ×2 (08:04→20:30)
[2017-04-11 08:12] VITALS: BP 135/79
[2017-04-11] MEDS ORDERED: HYDROmorphone 1 MG/ML, 1ML ONE ×3 (10:32→14:38)
[2017-04-11] MEDS: HYDROmorphone 2 MG/ML, 1ML IVPush PRN ×2 (10:35→12:49)
[2017-04-11] MEDS ORDERED: OMNIPAQUE 350 MG/ML, 100ML BOTTLE ONE (11:03)
[2017-04-11 14:50] VITALS: BP 151/99
[2017-04-11] MEDS ORDERED: HYDROmorphone 2 MG/ML, 1ML IVPush PRN (15:00)
[2017-04-11] MEDS ORDERED: HYDROmorphone 1 MG/ML, 1ML IVPush PRN (15:00)
[2017-04-11] MEDS: FILTER, DISP 1.2 MICRON FOR TPN/PVN IV PRN (16:33)
[2017-04-11] MEDS: SODIUM CHLORIDE 0.9% 1,000 ML IV SCH (16:35)
[2017-04-11] MEDS ORDERED: DEXTROSE 70% IV SCH (17:00)
[2017-04-11] MEDS ORDERED: [UNRECOGNIZED DRUG - OTHER] IV SCH (17:00)
[2017-04-11] MEDS ORDERED: FAT EMULSIONS IV SCH (17:00)
[2017-04-11] MEDS ORDERED: AMINO ACID 10% IV SCH (17:00)
[2017-04-11] MEDS: HYDROmorphone 1 MG/ML, 1ML IV PRN ×4 (17:01→23:23)
[2017-04-11] MEDS: PIPERACILLIN/TAZO/PMX 3.375GM 50 ML IV SCH ×2 (18:21→23:24)
[2017-04-11 20:00] VITALS: BP 162/97
[2017-04-11] MEDS: ENOXAPARIN 40 MG/0.4 ML SQ SCH (20:30)
[2017-04-11] MEDS ORDERED: ACETAMINOPHEN 650 MG SUPP PR ONE (20:30)
[2017-04-12] MEDS: HYDROmorphone 1 MG/ML, 1ML IV PRN ×10 (01:24→21:44)
[2017-04-12] MEDS: ONDANSETRON 2MG/ML, 2ML IVPush PRN ×4 (01:24→19:04)
[2017-04-12 02:01] VITALS: BP 140/90
[2017-04-12 04:09] LABS: BLOOD UREA NITROGEN 9 mg/dL (7-18)
[2017-04-12 04:10] LABS: ASPARTATE AMINO TRANSFERASE 30 U/L (15-37)
[2017-04-12] MEDS: PIPERACILLIN/TAZO/PMX 3.375GM 50 ML IV SCH ×3 (05:28→21:43)
[2017-04-12] MEDS: METOPROLOL TARTRATE 50 MG TABLET PO SCH ×2 (06:00→18:10)
[2017-04-12] MEDS: SUCRALFATE 1 GM/10 ML UDC PO SCH ×4 (07:00→21:43)
[2017-04-12 07:10] VITALS: BP 139/85
[2017-04-12] MEDS: PANTOPRAZOLE 40 MG IV IVPush SCH (07:23)
[2017-04-12] MEDS: LISINOPRIL 10 MG TABLET PO SCH (08:44)
[2017-04-12] MEDS: VANCOMYCIN 1,900 MG in SODIUM CHLORIDE 0.9% 250 ML IV SCH ×2 (08:44→23:33)
[2017-04-12] MEDS: INSULIN REGULAR LOW DOSE QDAY SQ-INSULIN SCH (08:54)
[2017-04-12] MEDS: SODIUM CHLORIDE 0.9% 1,000 ML IV SCH (11:29)
[2017-04-12] MEDS ORDERED: FENTANYL PF 100 MCG/2ML ONE (12:15)
[2017-04-12] MEDS ORDERED: MIDAZOLAM 1 MG/ML, 5ML ONE (12:15)
[2017-04-12] MEDS ORDERED: NALOXONE 1 MG/ML, 2ML ONE (12:15)
[2017-04-12] MEDS ORDERED: LIDOCAINE 2%, 20ML ONE ×3 (12:18→13:17)
[2017-04-12 14:30] VITALS: BP 126/86
[2017-04-12] MEDS ORDERED: DEXTROSE 70% IV SCH (17:00)
[2017-04-12] MEDS ORDERED: FILTER, DISP 1.2 MICRON FOR TPN/PVN IV PRN (17:00)
[2017-04-12] MEDS ORDERED: [UNRECOGNIZED DRUG - OTHER] IV SCH (17:00)
[2017-04-12] MEDS ORDERED: AMINO ACID 10% IV SCH (17:00)
[2017-04-12] MEDS ORDERED: FAT EMULSIONS IV SCH (17:00)
[2017-04-12 18:39] VITALS: BP 139/92
[2017-04-13] MEDS: HYDROmorphone 1 MG/ML, 1ML IV PRN ×11 (00:09→23:07)
[2017-04-13 01:53] VITALS: BP 137/93
[2017-04-13] MEDS: PIPERACILLIN/TAZO/PMX 3.375GM 50 ML IV SCH ×3 (02:14→20:28)
[2017-04-13 06:30] VITALS: BP 127/90
[2017-04-13 08:22] LABS: ASPARTATE AMINO TRANSFERASE 35 U/L (15-37); BLOOD UREA NITROGEN 14 mg/dL (7-18)
[2017-04-13] MEDS: SUCRALFATE 1 GM/10 ML UDC PO SCH ×4 (08:30→20:28)
[2017-04-13] MEDS ORDERED: HYDROcodone/APAP 7.5-325MG/15ML UDC PO PRN (08:30)
[2017-04-13] MEDS: METOPROLOL TARTRATE 50 MG TABLET PO SCH ×2 (08:31→18:09)
[2017-04-13] MEDS: PANTOPRAZOLE 40 MG IV IVPush SCH (08:57)
[2017-04-13] MEDS: VANCOMYCIN 1,900 MG in SODIUM CHLORIDE 0.9% 250 ML IV SCH (08:57)
[2017-04-13] MEDS: LISINOPRIL 10 MG TABLET PO SCH (08:57)
[2017-04-13] MEDS: INSULIN REGULAR LOW DOSE QDAY SQ-INSULIN SCH (09:00)
[2017-04-13] MEDS: ONDANSETRON 2MG/ML, 2ML IVPush PRN ×2 (09:16→14:20)
[2017-04-13 12:25] VITALS: BP 93/68
[2017-04-13] MEDS: MICAFUNGIN 100 MG in SODIUM CHLORIDE 0.9% 100 ML IV SCH (16:29)
[2017-04-13] MEDS: FILTER, DISP 1.2 MICRON FOR TPN/PVN IV PRN (16:33)
[2017-04-13] MEDS ORDERED: DEXTROSE 70% IV SCH (17:00)
[2017-04-13] MEDS ORDERED: AMINO ACID 10% IV SCH (17:00)
[2017-04-13] MEDS ORDERED: [UNRECOGNIZED DRUG - OTHER] IV SCH (17:00)
[2017-04-13] MEDS ORDERED: FAT EMULSIONS IV SCH (17:00)
[2017-04-13 18:10] VITALS: BP 131/83
[2017-04-13 19:13] VITALS: BP 122/88
[2017-04-13] MEDS: SODIUM CHLORIDE 0.9% 1,000 ML IV SCH (20:05)
[2017-04-13] MEDS ORDERED: PIPERACILLIN/TAZO/PMX 3.375GM 50 ML IV SCH (20:30)
[2017-04-14] MEDS: HYDROmorphone 1 MG/ML, 1ML IV PRN ×11 (01:12→22:56)
[2017-04-14] MEDS: PIPERACILLIN/TAZO/PMX 3.375GM 50 ML IV SCH ×2 (02:16→08:59)
[2017-04-14 02:54] VITALS: BP 120/85
[2017-04-14] MEDS: ONDANSETRON 2MG/ML, 2ML IVPush PRN ×3 (04:33→19:44)
[2017-04-14 05:08] LABS: ASPARTATE AMINO TRANSFERASE 50 U/L (15-37); BLOOD UREA NITROGEN 28 mg/dL (7-18)
[2017-04-14] MEDS: SUCRALFATE 1 GM/10 ML UDC PO SCH ×4 (06:46→21:47)
[2017-04-14] MEDS: METOPROLOL TARTRATE 50 MG TABLET PO SCH ×2 (06:47→19:43)
[2017-04-14 07:55] VITALS: BP 109/76
[2017-04-14] MEDS ORDERED: HYDROmorphone 2 MG/ML, 1ML ONE ×3 (08:07→11:57)
[2017-04-14] MEDS: PANTOPRAZOLE 40 MG IV IVPush SCH (08:15)
[2017-04-14] MEDS: LISINOPRIL 10 MG TABLET PO SCH (08:15)
[2017-04-14] MEDS: DIAZEPAM 5 MG/ML, 2ML IV PRN (08:59)
[2017-04-14] MEDS: INSULIN REGULAR LOW DOSE QDAY SQ-INSULIN SCH (09:00)
[2017-04-14] MEDS ORDERED: SODIUM CHLORIDE 0.9% 1,000 ML IV ONE (09:30)
[2017-04-14] MEDS ORDERED: LACTATED RINGERS 1,000 ML IV SCH (09:30)
[2017-04-14] MEDS ORDERED: LACTATED RINGERS 1,000 ML IVBOLUS ONE (14:00)
[2017-04-14] MEDS: MICAFUNGIN 100 MG in SODIUM CHLORIDE 0.9% 100 ML IV SCH (14:18)
[2017-04-14 15:35] VITALS: BP 122/85
[2017-04-14] MEDS ORDERED: DEXTROSE 70% IV SCH (17:00)
[2017-04-14] MEDS ORDERED: ACETAMINOPHEN 650 MG SUPP PR PRN (17:00)
[2017-04-14] MEDS ORDERED: AMINO ACID 10% IV SCH (17:00)
[2017-04-14] MEDS ORDERED: FAT EMULSIONS IV SCH (17:00)
[2017-04-14] MEDS ORDERED: [UNRECOGNIZED DRUG - OTHER] IV SCH (17:00)
[2017-04-14] MEDS: PIPERACILLIN/TAZO/PMX 2.25GM 50 ML IVPB SCH ×2 (17:23→22:56)
[2017-04-14 18:36] VITALS: BP 147/90
[2017-04-14] MEDS: FILTER, DISP 1.2 MICRON FOR TPN/PVN IV PRN (19:43)
[2017-04-14 20:39] LABS: POTASSIUM,URINE RANDOM 16 mmol/L
[2017-04-15] MEDS: HYDROmorphone 1 MG/ML, 1ML IV PRN ×10 (01:47→21:59)
[2017-04-15] MEDS: ONDANSETRON 2MG/ML, 2ML IVPush PRN ×2 (02:40→19:58)
[2017-04-15 02:46] VITALS: BP 135/88
[2017-04-15] MEDS: PIPERACILLIN/TAZO/PMX 2.25GM 50 ML IVPB SCH ×2 (05:26→11:08)
[2017-04-15 05:33] LABS: ASPARTATE AMINO TRANSFERASE 52 U/L (15-37)
[2017-04-15 05:39] LABS: BLOOD UREA NITROGEN 40 mg/dL (7-18)
[2017-04-15] MEDS: METOPROLOL TARTRATE 50 MG TABLET PO SCH ×2 (06:24→16:21)
[2017-04-15] MEDS ORDERED: [UNRECOGNIZED DRUG - REMARK] MC SCH ×2 (07:00)
[2017-04-15 07:18] VITALS: BP 136/92
[2017-04-15] MEDS: SUCRALFATE 1 GM/10 ML UDC PO SCH ×4 (08:48→21:10)
[2017-04-15] MEDS ORDERED: SODIUM CHLORIDE 0.45% 1,000 ML IV SCH ×2 (08:48→09:00)
[2017-04-15] MEDS: PANTOPRAZOLE 40 MG IV IVPush SCH (08:49)
[2017-04-15] MEDS: LISINOPRIL 10 MG TABLET PO SCH (08:49)
[2017-04-15] MEDS ORDERED: PHARMACY MAY ADJ FOR RENAL FX MC PRN (09:00)
[2017-04-15] MEDS ORDERED: ENOXAPARIN 30 MG/0.3 ML SQ SCH (09:00)
[2017-04-15] MEDS: INSULIN REGULAR LOW DOSE QDAY SQ-INSULIN SCH (09:02)
[2017-04-15] MEDS: HEPARIN 5,000 UNITS/ML, 1ML SQ SCH ×2 (09:14→21:10)
[2017-04-15] MEDS: DIAZEPAM 5 MG/ML, 2ML IV PRN ×2 (11:52→21:10)
[2017-04-15] MEDS: SODIUM CHLORIDE 0.45% 1,000 ML IV SCH (13:19)
[2017-04-15 13:41] VITALS: BP 125/85
[2017-04-15] MEDS: MICAFUNGIN 100 MG in SODIUM CHLORIDE 0.9% 100 ML IV SCH (14:14)
[2017-04-15 16:19] VITALS: BP 129/89
[2017-04-15] MEDS ORDERED: DEXTROSE 70% IV SCH (17:00)
[2017-04-15] MEDS ORDERED: [UNRECOGNIZED DRUG - OTHER] IV SCH (17:00)
[2017-04-15] MEDS ORDERED: FAT EMULSIONS IV SCH (17:00)
[2017-04-15] MEDS ORDERED: AMINO ACID 10% IV SCH (17:00)
[2017-04-15] MEDS ORDERED: PIPERACILLIN/TAZO 2.25 GM in SODIUM CHLORIDE 0.9% 50 ML IV SCH (20:00)
[2017-04-15] MEDS: PIPERACILLIN/TAZO 2.25 GM in SODIUM CHLORIDE 0.9% 100 ML IV SCH (20:08)
[2017-04-15 20:17] VITALS: BP 140/98
[2017-04-16] MEDS: ONDANSETRON 2MG/ML, 2ML IVPush PRN ×4 (00:08→22:05)
[2017-04-16] MEDS: SODIUM CHLORIDE 0.45% 1,000 ML IV SCH ×3 (01:30→23:38)
[2017-04-16] MEDS: HYDROmorphone 1 MG/ML, 1ML IV PRN ×3 (01:58→04:12)
[2017-04-16 03:00] VITALS: BP 146/102
[2017-04-16] MEDS: PIPERACILLIN/TAZO 2.25 GM in SODIUM CHLORIDE 0.9% 100 ML IV SCH ×3 (04:26→22:17)
[2017-04-16 04:34] LABS: ASPARTATE AMINO TRANSFERASE 55 U/L (15-37); BLOOD UREA NITROGEN 47 mg/dL (7-18)
[2017-04-16] MEDS: METOPROLOL TARTRATE 50 MG TABLET PO SCH ×2 (06:00→17:00)
[2017-04-16] MEDS: LISINOPRIL 10 MG TABLET PO SCH ×2 (08:00→08:30)
[2017-04-16] MEDS: PANTOPRAZOLE 40 MG IV IVPush SCH (08:00)
[2017-04-16] MEDS: HEPARIN 5,000 UNITS/ML, 1ML SQ SCH ×2 (08:00→22:17)
[2017-04-16] MEDS: SUCRALFATE 1 GM/10 ML UDC PO SCH ×5 (08:35→17:00)
[2017-04-16] MEDS: DIAZEPAM 5 MG/ML, 2ML IV PRN (11:40)
[2017-04-16] MEDS ORDERED: FENTANYL 1500 MCG/30 ML PCA IV PRN (12:30)
[2017-04-16] MEDS: MICAFUNGIN 100 MG in SODIUM CHLORIDE 0.9% 100 ML IV SCH (15:00)
[2017-04-16] MEDS: AMINO ACID 10% IV SCH (17:15)
[2017-04-16] MEDS: DEXTROSE 70% IV SCH (17:15)
[2017-04-16] MEDS: [UNRECOGNIZED DRUG - OTHER] IV SCH (17:15)
[2017-04-16] MEDS: FAT EMULSIONS IV SCH (17:15)
[2017-04-17] MEDS: DIAZEPAM 5 MG/ML, 2ML IV PRN ×2 (00:20→12:30)
[2017-04-17] MEDS: PROMETHAZINE 25 MG/ML, 1ML IM PRN ×2 (00:53→19:07)
[2017-04-17] MEDS: INSULIN REGULAR LOW DOSE QDAY SQ-INSULIN SCH ×2 (04:43→09:00)
[2017-04-17] MEDS: ONDANSETRON 2MG/ML, 2ML IVPush PRN ×5 (06:22→23:26)
[2017-04-17] MEDS: PIPERACILLIN/TAZO 2.25 GM in SODIUM CHLORIDE 0.9% 100 ML IV SCH ×3 (06:22→17:45)
[2017-04-17] MEDS: METOPROLOL TARTRATE 50 MG TABLET PO SCH ×2 (06:23→18:00)
[2017-04-17] MEDS: SODIUM CHLORIDE 0.45% 1,000 ML IV SCH (06:24)
[2017-04-17] MEDS: PANTOPRAZOLE 40 MG IV IVPush SCH (07:30)
[2017-04-17] MEDS: HEPARIN 5,000 UNITS/ML, 1ML SQ SCH (08:00)
[2017-04-17] MEDS: LISINOPRIL 10 MG TABLET PO SCH (09:00)
[2017-04-17] MEDS: HYDROmorphone 1 MG/ML, 1ML IV PRN (10:35)
[2017-04-17] MEDS: SUCRALFATE 1 GM/10 ML UDC PO SCH ×3 (11:00→21:00)
[2017-04-17] MEDS ORDERED: FENTANYL 1500 MCG/30 ML PCA IV PRN (13:30)
[2017-04-17] MEDS ORDERED: HYDROmorphone PCA 30 MG/30 ML ONE (13:45)
[2017-04-17 14:37] VITALS: BP 145/92
[2017-04-17] MEDS: MICAFUNGIN 100 MG in SODIUM CHLORIDE 0.9% 100 ML IV SCH (14:59)
[2017-04-17] MEDS ORDERED: FILTER, DISP 1.2 MICRON FOR TPN/PVN IV SCH (17:00)
[2017-04-17] MEDS: AMINO ACID 10% IV SCH (19:05)
[2017-04-17] MEDS: [UNRECOGNIZED DRUG - OTHER] IV SCH (19:05)
[2017-04-17] MEDS: DEXTROSE 70% IV SCH (19:05)
[2017-04-17] MEDS: FAT EMULSIONS IV SCH (19:05)
[2017-04-17 20:07] VITALS: BP 155/96
[2017-04-18] MEDS: HEPARIN 5,000 UNITS/ML, 1ML SQ SCH ×2 (00:17→12:10)
[2017-04-18] MEDS: PIPERACILLIN/TAZO 2.25 GM in SODIUM CHLORIDE 0.9% 100 ML IV SCH ×2 (00:17→08:00)
[2017-04-18] MEDS: DIAZEPAM 5 MG/ML, 2ML IV PRN (00:18)
[2017-04-18] MEDS: METOPROLOL TARTRATE 50 MG TABLET PO SCH ×3 (00:18→17:23)
[2017-04-18] MEDS: SUCRALFATE 1 GM/10 ML UDC PO SCH ×5 (00:18→21:11)
[2017-04-18] MEDS: SODIUM CHLORIDE 0.45% 1,000 ML IV SCH (00:27)
[2017-04-18 02:18] VITALS: BP 130/83
[2017-04-18 06:22] LABS: ASPARTATE AMINO TRANSFERASE 36 U/L (15-37); BLOOD UREA NITROGEN 52 mg/dL (7-18)
[2017-04-18 06:50] VITALS: BP 134/83
[2017-04-18] MEDS: LISINOPRIL 10 MG TABLET PO SCH (07:43)
[2017-04-18] MEDS: INSULIN REGULAR LOW DOSE QDAY SQ-INSULIN SCH (07:45)
[2017-04-18] MEDS: PANTOPRAZOLE 40 MG IV IVPush SCH (08:13)
[2017-04-18] MEDS: PIPERACILLIN/TAZO/PMX 2.25GM 50 ML IVPB SCH ×2 (09:50→18:01)
[2017-04-18] MEDS: ONDANSETRON 2MG/ML, 2ML IVPush PRN ×3 (09:51→21:11)
[2017-04-18 13:15] VITALS: BP 138/85
[2017-04-18] MEDS: MICAFUNGIN 100 MG in SODIUM CHLORIDE 0.9% 100 ML IV SCH (14:38)
[2017-04-18] MEDS ORDERED: DEXTROSE 70% IV SCH (17:00)
[2017-04-18] MEDS ORDERED: [UNRECOGNIZED DRUG - OTHER] IV SCH (17:00)
[2017-04-18] MEDS ORDERED: FILTER, DISP 1.2 MICRON FOR TPN/PVN IV SCH (17:00)
[2017-04-18] MEDS ORDERED: FAT EMULSIONS IV SCH (17:00)
[2017-04-18] MEDS ORDERED: AMINO ACID 10% IV SCH (17:00)
[2017-04-18 18:54] VITALS: BP 146/91
[2017-04-19] MEDS: PIPERACILLIN/TAZO/PMX 2.25GM 50 ML IVPB SCH ×3 (00:31→17:43)
[2017-04-19] MEDS: DIAZEPAM 5 MG/ML, 2ML IV PRN ×3 (00:31→23:02)
[2017-04-19] MEDS: HEPARIN 5,000 UNITS/ML, 1ML SQ SCH ×2 (00:31→11:58)
[2017-04-19 01:38] VITALS: BP 148/93
[2017-04-19] MEDS: HYDROmorphone PCA 30 MG/30 ML IV PRN (05:17)
[2017-04-19] MEDS: ONDANSETRON 2MG/ML, 2ML IVPush PRN ×3 (05:57→20:22)
[2017-04-19] MEDS: METOPROLOL TARTRATE 50 MG TABLET PO SCH ×2 (06:00→17:43)
[2017-04-19] MEDS: SUCRALFATE 1 GM/10 ML UDC PO SCH ×4 (06:40→21:00)
[2017-04-19 06:41] LABS: BLOOD UREA NITROGEN 51 mg/dL (7-18)
[2017-04-19 06:44] VITALS: BP 145/89
[2017-04-19] MEDS: INSULIN REGULAR LOW DOSE QDAY SQ-INSULIN SCH (09:15)
[2017-04-19] MEDS: PANTOPRAZOLE 40 MG IV IVPush SCH (09:15)
[2017-04-19 14:24] VITALS: BP 157/96
[2017-04-19] MEDS: MICAFUNGIN 100 MG in SODIUM CHLORIDE 0.9% 100 ML IV SCH (14:52)
[2017-04-19 15:50] LABS: ASPARTATE AMINO TRANSFERASE 33 U/L (15-37); BLOOD UREA NITROGEN 51 mg/dL (7-18)
[2017-04-19] MEDS ORDERED: [UNRECOGNIZED DRUG - OTHER] IV SCH (17:00)
[2017-04-19] MEDS ORDERED: DEXTROSE 70% IV SCH (17:00)
[2017-04-19] MEDS ORDERED: FAT EMULSIONS IV SCH (17:00)
[2017-04-19] MEDS ORDERED: AMINO ACID 10% IV SCH (17:00)
[2017-04-19] MEDS: SODIUM CHLORIDE 0.45% 1,000 ML IV SCH (17:43)
[2017-04-19] MEDS: FILTER, DISP 1.2 MICRON FOR TPN/PVN IV SCH (17:43)
[2017-04-19 18:32] VITALS: BP 142/95
[2017-04-20] MEDS: ONDANSETRON 2MG/ML, 2ML IVPush PRN ×5 (00:57→22:08)
[2017-04-20] MEDS: PIPERACILLIN/TAZO/PMX 2.25GM 50 ML IVPB SCH ×3 (00:57→18:11)
[2017-04-20] MEDS: HEPARIN 5,000 UNITS/ML, 1ML SQ SCH ×2 (00:57→11:07)
[2017-04-20] MEDS: MEPERIDINE/PF 50 MG/ML IM PRN ×4 (01:01→21:51)
[2017-04-20 02:07] VITALS: BP_SYST 142; BP_SYST 153; BP_DIAS 101; BP_DIAS 97
[2017-04-20] MEDS: METOPROLOL TARTRATE 50 MG TABLET PO SCH ×2 (06:00→18:11)
[2017-04-20] MEDS: HYDROmorphone PCA 30 MG/30 ML IV PRN (06:13)
[2017-04-20 06:23] LABS: ASPARTATE AMINO TRANSFERASE 78 U/L (15-37); BLOOD UREA NITROGEN 46 mg/dL (7-18)
[2017-04-20] MEDS: SUCRALFATE 1 GM/10 ML UDC PO SCH ×4 (06:35→21:51)
[2017-04-20 07:38] VITALS: BP 145/96
[2017-04-20] MEDS ORDERED: [UNRECOGNIZED DRUG - OTHER] IV SCH ×2 (08:30→17:00)
[2017-04-20] MEDS ORDERED: AMINO ACID 10% IV SCH ×2 (08:30→17:00)
[2017-04-20] MEDS ORDERED: DEXTROSE 70% IV SCH ×2 (08:30→17:00)
[2017-04-20] MEDS ORDERED: FAT EMULSIONS IV SCH ×2 (08:30→17:00)
[2017-04-20] MEDS: INSULIN REGULAR LOW DOSE QDAY SQ-INSULIN SCH (09:20)
[2017-04-20] MEDS: PANTOPRAZOLE 40 MG IV IVPush SCH (09:20)
[2017-04-20] MEDS: SODIUM CHLORIDE 0.45% 1,000 ML IV SCH ×2 (11:07→18:38)
[2017-04-20] MEDS: MICAFUNGIN 100 MG in SODIUM CHLORIDE 0.9% 100 ML IV SCH (14:00)
[2017-04-20 15:40] VITALS: BP_SYST 155; BP_SYST 156; BP_DIAS 104; BP_DIAS 96
[2017-04-20] MEDS: FILTER, DISP 1.2 MICRON FOR TPN/PVN IV SCH (18:11)
[2017-04-20 20:30] VITALS: BP 151/95
[2017-04-21] MEDS: HEPARIN 5,000 UNITS/ML, 1ML SQ SCH ×2 (00:49→11:34)
[2017-04-21] MEDS: DIAZEPAM 5 MG/ML, 2ML IV PRN ×2 (01:22→14:42)
[2017-04-21] MEDS: PIPERACILLIN/TAZO/PMX 2.25GM 50 ML IVPB SCH ×3 (01:25→17:08)
[2017-04-21 01:47] VITALS: BP 98/54
[2017-04-21] MEDS: ONDANSETRON 2MG/ML, 2ML IVPush PRN ×4 (04:42→21:28)
[2017-04-21] MEDS: SODIUM CHLORIDE 0.45% 1,000 ML IV SCH ×2 (04:43→14:44)
[2017-04-21] MEDS: MEPERIDINE/PF 50 MG/ML IM PRN ×4 (04:43→21:28)
[2017-04-21 05:01] LABS: BLOOD UREA NITROGEN 38 mg/dL (7-18)
[2017-04-21 06:15] VITALS: BP 145/94
[2017-04-21] MEDS: SUCRALFATE 1 GM/10 ML UDC PO SCH ×4 (06:28→20:40)
[2017-04-21] MEDS: METOPROLOL TARTRATE 50 MG TABLET PO SCH ×2 (06:28→17:08)
[2017-04-21] MEDS: HYDROmorphone PCA 30 MG/30 ML IV PRN (06:29)
[2017-04-21 07:51] VITALS: BP 146/93
[2017-04-21] MEDS ORDERED: MAGNESIUM SULFATE PMX 2GM/50ML 50 ML IV ONE (08:30)
[2017-04-21] MEDS: PANTOPRAZOLE 40 MG IV IVPush SCH (09:25)
[2017-04-21] MEDS: INSULIN REGULAR LOW DOSE QDAY SQ-INSULIN SCH (09:30)
[2017-04-21 12:38] VITALS: BP 152/98
[2017-04-21] MEDS: MICAFUNGIN 100 MG in SODIUM CHLORIDE 0.9% 100 ML IV SCH (14:42)
[2017-04-21] MEDS ORDERED: AMINO ACID 10% IV SCH (17:00)
[2017-04-21] MEDS ORDERED: [UNRECOGNIZED DRUG - OTHER] IV SCH (17:00)
[2017-04-21] MEDS ORDERED: FAT EMULSIONS IV SCH (17:00)
[2017-04-21] MEDS ORDERED: DEXTROSE 70% IV SCH (17:00)
[2017-04-21] MEDS: FILTER, DISP 1.2 MICRON FOR TPN/PVN IV SCH (17:07)
[2017-04-21] MEDS ORDERED: HYDROmorphone 1 MG/ML, 1ML ONE (17:27)
[2017-04-21] MEDS ORDERED: HYDROmorphone 1 MG/ML, 1ML IV ONE (17:30)
[2017-04-21 19:05] VITALS: BP 151/99
[2017-04-22] MEDS: HEPARIN 5,000 UNITS/ML, 1ML SQ SCH ×2 (00:11→12:00)
[2017-04-22] MEDS: SODIUM CHLORIDE 0.45% 1,000 ML IV SCH ×3 (00:11→19:42)
[2017-04-22] MEDS: DIAZEPAM 5 MG/ML, 2ML IV PRN ×2 (00:41→09:22)
[2017-04-22] MEDS: PIPERACILLIN/TAZO/PMX 2.25GM 50 ML IVPB SCH ×2 (01:39→09:22)
[2017-04-22] MEDS: ONDANSETRON 2MG/ML, 2ML IVPush PRN ×5 (01:39→18:35)
[2017-04-22 01:48] VITALS: BP 146/92
[2017-04-22] MEDS: MEPERIDINE/PF 50 MG/ML IM PRN ×2 (04:05→15:37)
[2017-04-22 04:37] LABS: BLOOD UREA NITROGEN 30 mg/dL (7-18)
[2017-04-22] MEDS: SUCRALFATE 1 GM/10 ML UDC PO SCH ×4 (06:05→19:39)
[2017-04-22] MEDS: METOPROLOL TARTRATE 50 MG TABLET PO SCH ×2 (06:05→17:57)
[2017-04-22 07:24] VITALS: BP 158/103
[2017-04-22] MEDS: PANTOPRAZOLE 40 MG IV IVPush SCH (07:48)
[2017-04-22] MEDS: HYDROmorphone PCA 30 MG/30 ML IV PRN ×2 (08:07→20:18)
[2017-04-22] MEDS ORDERED: FAT EMULSIONS IV SCH ×2 (09:00→17:00)
[2017-04-22] MEDS ORDERED: AMINO ACID 10% IV SCH ×2 (09:00→17:00)
[2017-04-22] MEDS ORDERED: [UNRECOGNIZED DRUG - OTHER] IV SCH ×2 (09:00→17:00)
[2017-04-22] MEDS: INSULIN REGULAR LOW DOSE QDAY SQ-INSULIN SCH (09:00)
[2017-04-22] MEDS ORDERED: DEXTROSE 70% IV SCH ×2 (09:00→17:00)
[2017-04-22] MEDS: PROMETHAZINE 25 MG/ML, 1ML IM PRN (11:58)
[2017-04-22 13:49] VITALS: BP 155/100
[2017-04-22] MEDS: MICAFUNGIN 100 MG in SODIUM CHLORIDE 0.9% 100 ML IV SCH (14:31)
[2017-04-22] MEDS ORDERED: PIPERACILLIN/TAZO/PMX 2.25GM 50 ML IVPB SCH (15:30)
[2017-04-22] MEDS ORDERED: DIAZEPAM 5 MG/ML, 10ML VIAL IV PRN (17:14)
[2017-04-22] MEDS: FILTER, DISP 1.2 MICRON FOR TPN/PVN IV SCH (17:56)
[2017-04-22] MEDS: PIPERACILLIN/TAZO 2.25 GM in SODIUM CHLORIDE 0.9% 100 ML IVPB SCH (19:38)
[2017-04-22 19:44] VITALS: BP 157/103
[2017-04-22] MEDS: DIAZEPAM 5 MG/ML, 10ML VIAL IV PRN (19:48)
[2017-04-23] MEDS: ONDANSETRON 2MG/ML, 2ML IVPush PRN ×3 (00:05→19:41)
[2017-04-23] MEDS: HEPARIN 5,000 UNITS/ML, 1ML SQ SCH ×3 (00:05→23:11)
[2017-04-23 02:19] VITALS: BP 145/92
[2017-04-23] MEDS: PIPERACILLIN/TAZO 2.25 GM in SODIUM CHLORIDE 0.9% 100 ML IVPB SCH ×2 (02:20→08:10)
[2017-04-23] MEDS: MEPERIDINE/PF 50 MG/ML IM PRN (02:33)
[2017-04-23] MEDS: SODIUM CHLORIDE 0.45% 1,000 ML IV SCH ×3 (05:06→23:25)
[2017-04-23] MEDS: METOPROLOL TARTRATE 50 MG TABLET PO SCH ×2 (05:11→17:19)
[2017-04-23 05:48] LABS: ASPARTATE AMINO TRANSFERASE 95 U/L (15-37)
[2017-04-23 05:56] LABS: BLOOD UREA NITROGEN 27 mg/dL (7-18)
[2017-04-23] MEDS: SUCRALFATE 1 GM/10 ML UDC PO SCH ×4 (06:34→19:41)
[2017-04-23 07:47] VITALS: BP 145/88
[2017-04-23] MEDS: PANTOPRAZOLE 40 MG IV IVPush SCH (08:10)
[2017-04-23] MEDS: INSULIN REGULAR LOW DOSE QDAY SQ-INSULIN SCH (09:28)
[2017-04-23] MEDS: DIAZEPAM 5 MG/ML, 10ML VIAL IV PRN (12:20)
[2017-04-23 13:14] VITALS: BP 145/88
[2017-04-23] MEDS: PIPERACILLIN/TAZO/PMX 3.375GM 50 ML IVPB SCH ×2 (13:20→19:25)
[2017-04-23] MEDS: MICAFUNGIN 100 MG in SODIUM CHLORIDE 0.9% 100 ML IV SCH (14:10)
[2017-04-23] MEDS ORDERED: FILTER, DISP 1.2 MICRON FOR TPN/PVN IV SCH (17:00)
[2017-04-23] MEDS ORDERED: DEXTROSE 70% IV SCH (17:00)
[2017-04-23] MEDS ORDERED: FAT EMULSIONS IV SCH (17:00)
[2017-04-23] MEDS ORDERED: AMINO ACID 10% IV SCH (17:00)
[2017-04-23] MEDS ORDERED: [UNRECOGNIZED DRUG - OTHER] IV SCH (17:00)
[2017-04-23 20:08] VITALS: BP 154/96
[2017-04-23] MEDS: PROMETHAZINE 25 MG/ML, 1ML IM PRN (23:09)
[2017-04-24] MEDS: ONDANSETRON 2MG/ML, 2ML IVPush PRN ×4 (01:30→20:00)
[2017-04-24] MEDS: PIPERACILLIN/TAZO/PMX 3.375GM 50 ML IVPB SCH ×4 (01:30→19:52)
[2017-04-24] MEDS: DIAZEPAM 5 MG/ML, 10ML VIAL IV PRN ×3 (01:31→22:58)
[2017-04-24 04:04] VITALS: BP 158/90
[2017-04-24] MEDS: METOPROLOL TARTRATE 50 MG TABLET PO SCH ×2 (05:31→18:00)
[2017-04-24] MEDS ORDERED: HYDROmorphone PCA 30 MG/30 ML ONE (05:59)
[2017-04-24] MEDS: HYDROmorphone PCA 30 MG/30 ML IV PRN (06:10)
[2017-04-24] MEDS: SUCRALFATE 1 GM/10 ML UDC PO SCH ×4 (06:10→20:53)
[2017-04-24 06:55] LABS: BLOOD UREA NITROGEN 21 mg/dL (7-18)
[2017-04-24 07:37] VITALS: BP 157/89
[2017-04-24] MEDS: PANTOPRAZOLE 40 MG IV IVPush SCH (07:49)
[2017-04-24] MEDS: PROMETHAZINE 25 MG/ML, 1ML IM PRN ×2 (07:51→16:50)
[2017-04-24] MEDS: INSULIN REGULAR LOW DOSE QDAY SQ-INSULIN SCH (09:00)
[2017-04-24] MEDS: SODIUM CHLORIDE 0.45% 1,000 ML IV SCH ×2 (10:05→16:53)
[2017-04-24] MEDS: HEPARIN 5,000 UNITS/ML, 1ML SQ SCH (11:34)
[2017-04-24] MEDS: MEPERIDINE/PF 50 MG/ML IM PRN (14:06)
[2017-04-24 16:04] VITALS: BP 152/94
[2017-04-24] MEDS: MICAFUNGIN 100 MG in SODIUM CHLORIDE 0.9% 100 ML IV SCH (16:49)
[2017-04-24] MEDS ORDERED: FILTER, DISP 1.2 MICRON FOR TPN/PVN IV SCH (17:00)
[2017-04-24] MEDS ORDERED: FAT EMULSIONS IV SCH (17:00)
[2017-04-24] MEDS ORDERED: AMINO ACID 10% IV SCH (17:00)
[2017-04-24] MEDS ORDERED: [UNRECOGNIZED DRUG - OTHER] IV SCH (17:00)
[2017-04-24] MEDS ORDERED: DEXTROSE 70% IV SCH (17:00)
[2017-04-24 19:50] VITALS: BP 152/103
[2017-04-25] MEDS: HEPARIN 5,000 UNITS/ML, 1ML SQ SCH ×3 (00:01→23:57)
[2017-04-25] MEDS: ONDANSETRON 2MG/ML, 2ML IVPush PRN ×6 (00:15→22:16)
[2017-04-25] MEDS: PIPERACILLIN/TAZO/PMX 3.375GM 50 ML IVPB SCH ×4 (01:24→20:24)
[2017-04-25 02:57] VITALS: BP 156/98
[2017-04-25] MEDS: PROMETHAZINE 25 MG/ML, 1ML IM PRN (03:20)
[2017-04-25 05:29] LABS: BLOOD UREA NITROGEN 19 mg/dL (7-18)
[2017-04-25] MEDS: SUCRALFATE 1 GM/10 ML UDC PO SCH ×5 (06:25→21:26)
[2017-04-25] MEDS: METOPROLOL TARTRATE 50 MG TABLET PO SCH (06:25)
[2017-04-25] MEDS: PANTOPRAZOLE 40 MG IV IVPush SCH (07:27)
[2017-04-25 07:30] VITALS: BP 166/98
[2017-04-25] MEDS: DIAZEPAM 5 MG/ML, 10ML VIAL IV PRN ×2 (07:36→15:23)
[2017-04-25] MEDS: INSULIN REGULAR LOW DOSE QDAY SQ-INSULIN SCH (09:00)
[2017-04-25] MEDS: MEPERIDINE/PF 50 MG/ML IM PRN ×2 (09:58→17:22)
[2017-04-25] MEDS ORDERED: HYDROmorphone PCA 30 MG/30 ML IV PRN (10:00)
[2017-04-25] MEDS: SODIUM CHLORIDE 0.45% 1,000 ML IV SCH ×2 (11:46→23:08)
[2017-04-25 15:02] VITALS: BP 149/97
[2017-04-25] MEDS ORDERED: AMINO ACID 10% IV SCH (17:00)
[2017-04-25] MEDS ORDERED: [UNRECOGNIZED DRUG - OTHER] IV SCH (17:00)
[2017-04-25] MEDS ORDERED: FAT EMULSIONS IV SCH (17:00)
[2017-04-25] MEDS ORDERED: DEXTROSE 70% IV SCH (17:00)
[2017-04-25] MEDS ORDERED: FILTER, DISP 1.2 MICRON FOR TPN/PVN IV SCH (17:00)
[2017-04-25] MEDS: MICAFUNGIN 100 MG in SODIUM CHLORIDE 0.9% 100 ML IV SCH (17:15)
[2017-04-25] MEDS: CARVEDILOL 12.5 MG TABLET PO SCH (18:00)
[2017-04-25] MEDS ORDERED: hydrALAzine 20 MG/ML, 1ML IV PRN (19:30)
[2017-04-25 20:04] VITALS: BP 132/64
[2017-04-26] MEDS: DIAZEPAM 5 MG/ML, 10ML VIAL IV PRN ×2 (00:02→21:24)
[2017-04-26] MEDS: PIPERACILLIN/TAZO/PMX 3.375GM 50 ML IVPB SCH ×4 (01:25→19:41)
[2017-04-26 01:46] VITALS: BP 160/101
[2017-04-26] MEDS: ONDANSETRON 2MG/ML, 2ML IVPush PRN ×4 (06:04→23:33)
[2017-04-26] MEDS: SUCRALFATE 1 GM/10 ML UDC PO SCH ×5 (06:04→21:11)
[2017-04-26] MEDS: CARVEDILOL 12.5 MG TABLET PO SCH ×2 (06:04→18:09)
[2017-04-26 06:26] LABS: BLOOD UREA NITROGEN 18 mg/dL (7-18)
[2017-04-26] MEDS: INSULIN REGULAR LOW DOSE QDAY SQ-INSULIN SCH (07:36)
[2017-04-26 08:11] VITALS: BP 154/95
[2017-04-26] MEDS: PANTOPRAZOLE 40 MG IV IVPush SCH (08:16)
[2017-04-26] MEDS: MEPERIDINE/PF 50 MG/ML IM PRN (08:26)
[2017-04-26] MEDS: ACETYLCYSTEINE 600 MG CAPSULE PO SCH ×2 (10:55→21:11)
[2017-04-26] MEDS: HEPARIN 5,000 UNITS/ML, 1ML SQ SCH ×2 (12:30→23:33)
[2017-04-26 14:14] VITALS: BP 147/94
[2017-04-26 16:13] VITALS: BP 159/94
[2017-04-26] MEDS: MICAFUNGIN 100 MG in SODIUM CHLORIDE 0.9% 100 ML IV SCH (16:14)
[2017-04-26] MEDS ORDERED: AMINO ACID 10% IV SCH (17:00)
[2017-04-26] MEDS ORDERED: [UNRECOGNIZED DRUG - OTHER] IV SCH (17:00)
[2017-04-26] MEDS ORDERED: FAT EMULSIONS IV SCH (17:00)
[2017-04-26] MEDS ORDERED: DEXTROSE 70% IV SCH (17:00)
[2017-04-26] MEDS: FILTER, DISP 1.2 MICRON FOR TPN/PVN IV SCH (18:09)
[2017-04-26 18:10] VITALS: BP 151/84
[2017-04-26] MEDS: SODIUM CHLORIDE 0.45% 1,000 ML IV SCH (21:12)
[2017-04-27 00:21] VITALS: BP 144/99
[2017-04-27] MEDS: PIPERACILLIN/TAZO/PMX 3.375GM 50 ML IVPB SCH ×3 (01:17→13:41)
[2017-04-27] MEDS: MEPERIDINE/PF 50 MG/ML IM PRN (02:30)
[2017-04-27] MEDS ORDERED: SODIUM ACETATE 150 MEQ in DEXTROSE 5% 1,000 ML IV SCH (03:00)
[2017-04-27] MEDS: SUCRALFATE 1 GM/10 ML UDC PO SCH ×3 (05:20→15:59)
[2017-04-27] MEDS: CARVEDILOL 12.5 MG TABLET PO SCH (05:20)
[2017-04-27] MEDS: ONDANSETRON 2MG/ML, 2ML IVPush PRN ×3 (05:20→13:41)
[2017-04-27 05:53] LABS: ASPARTATE AMINO TRANSFERASE 152 U/L (15-37); BLOOD UREA NITROGEN 18 mg/dL (7-18)
[2017-04-27] MEDS: INSULIN REGULAR LOW DOSE QDAY SQ-INSULIN SCH (07:27)
[2017-04-27 07:50] VITALS: BP 141/92
[2017-04-27] MEDS: PANTOPRAZOLE 40 MG IV IVPush SCH (07:52)
[2017-04-27] MEDS: ACETYLCYSTEINE 600 MG CAPSULE PO SCH (07:53)
[2017-04-27] MEDS: PROMETHAZINE 25 MG/ML, 1ML IM PRN ×2 (08:04→16:08)
[2017-04-27] MEDS: HEPARIN 5,000 UNITS/ML, 1ML SQ SCH (11:26)
[2017-04-27] MEDS ORDERED: MEPERIDINE/PF 50 MG/ML IM PRN (11:31)
[2017-04-27] MEDS ORDERED: HYDROmorphone PCA 30 MG/30 ML IV PRN (12:00)
[2017-04-27] MEDS ORDERED: OMNIPAQUE 350 MG/ML, 100ML BOTTLE ONE (13:29)
[2017-04-27] MEDS: DIAZEPAM 5 MG/ML, 10ML VIAL IV PRN (13:42)
[2017-04-27 13:53] VITALS: BP 148/104
[2017-04-27] MEDS ORDERED: CARV12.543 PO (14:19)
[2017-04-27] MEDS ORDERED: SUCR1ORA2 PO (14:19)
[2017-04-27] MEDS ORDERED: HEPA5000 SQ (14:19)
[2017-04-27] MEDS ORDERED: PANT40VI IVPush (14:19)
[2017-04-27] MEDS ORDERED: ONDA4VIA4 IVPush (14:19)
[2017-04-27] MEDS ORDERED: DIAZ5VIA3 IV (15:27)
[2017-04-27] MEDS ORDERED: DOCU-30 PO (15:27)
[2017-04-27] MEDS ORDERED: ACET650S12 PR (15:27)
[2017-04-27] MEDS: MICAFUNGIN 100 MG in SODIUM CHLORIDE 0.9% 100 ML IV SCH (16:01)
[2017-04-27] MEDS ORDERED: HYDROmorphone 1 MG/ML, 1ML IV ONE (16:30)
[2017-04-27] MEDS ORDERED: FAT EMULSIONS IV SCH (17:00)
[2017-04-27] MEDS ORDERED: AMINO ACID 10% IV SCH (17:00)
[2017-04-27] MEDS: FILTER, DISP 1.2 MICRON FOR TPN/PVN IV SCH (17:00)
[2017-04-27] MEDS ORDERED: [UNRECOGNIZED DRUG - OTHER] IV SCH (17:00)
[2017-04-27] MEDS ORDERED: DEXTROSE 70% IV SCH (17:00)
[2017-04-27 17:15] VITALS: BP 159/105
== END 2017-04-27 17:30 | DRG 871 ==
LOC: ED 15:55 → EDIP 18:28 → 4NOR 19:52
PROVIDERS: ADMIT Internal Medicine; ATTEND Internal Medicine
PROC: BF101ZZ Fluoroscopy of Bile Ducts using Low Osmolar Contrast (ICD-10-PCS; 2017-03-28)
PROC: 0F9430Z Drainage of Gallbladder with Drainage Device, Percutaneous Approach (ICD-10-PCS; 2017-03-28)
PROC: 0F798DZ Dilation of Common Bile Duct with Intraluminal Device, Via Natural or Artificial Opening Endoscopic (ICD-10-PCS; principal; 2017-03-28 10:00)
PROC: 0F7D8DZ Dilation of Pancreatic Duct with Intraluminal Device, Via Natural or Artificial Opening Endoscopic (ICD-10-PCS; 2017-04-06)
PROC: BF181ZZ Fluoroscopy of Pancreatic Ducts using Low Osmolar Contrast (ICD-10-PCS; 2017-04-06)
PROC: 02HV33Z Insertion of Infusion Device into Superior Vena Cava, Percutaneous Approach (ICD-10-PCS; 2017-04-09)
PROC: B5181ZA Fluoroscopy of Superior Vena Cava using Low Osmolar Contrast, Guidance (ICD-10-PCS; 2017-04-09)
PROC: B548ZZA Ultrasonography of Superior Vena Cava, Guidance (ICD-10-PCS; 2017-04-09)
PROC: 0F9G30Z Drainage of Pancreas with Drainage Device, Percutaneous Approach (ICD-10-PCS; 2017-04-12)
PROC: 0W9G3ZZ Drainage of Peritoneal Cavity, Percutaneous Approach (ICD-10-PCS; 2017-04-12)
PROC: 0T9B70Z Drainage of Bladder with Drainage Device, Via Natural or Artificial Opening (ICD-10-PCS; 2017-04-15)
DX: A41.9 Sepsis, unspecified organism (principal); E43 Unspecified severe protein-calorie malnutrition; K85.90 Acute pancreatitis without necrosis or infection, unspecified; K65.1 Peritoneal abscess; K65.3 Choleperitonitis; N17.0 Acute kidney failure with tubular necrosis; K86.3 Pseudocyst of pancreas; J90 Pleural effusion, not elsewhere classified; J98.11 Atelectasis; K91.89 Other postprocedural complications and disorders of digestive system; R18.8 Other ascites; D72.829 Elevated white blood cell count, unspecified; I10 Essential (primary) hypertension; D64.9 Anemia, unspecified; D75.89 Other specified diseases of blood and blood-forming organs; E66.9 Obesity, unspecified; E83.42 Hypomagnesemia; E87.6 Hypokalemia; E86.1 Hypovolemia; E87.5 Hyperkalemia; E87.70 Fluid overload, unspecified; K21.9 Gastro-esophageal reflux disease without esophagitis; K86.89 Other specified diseases of pancreas; N14.1 Nephropathy induced by other drugs, medicaments and biological substances; T50.8X5A Adverse effect of diagnostic agents, initial encounter; Y83.6 Removal of other organ (partial) (total) as the cause of abnormal reaction of the patient, or of later complication, without mention of misadventure at the time of the procedure; Z87.891 Personal history of nicotine dependence; Z90.49 Acquired absence of other specified parts of digestive tract; Z82.49 Family history of ischemic heart disease and other diseases of the circulatory system; Z68.36 Body mass index [BMI] 36.0-36.9, adult
CPT/HCPCS: 36415; 36569; 49083; 49405; 49406; 49407; 71010; 71275; 74000; 74177; 74178; 74181; 74328; 74330; 76700; 76770; 76937; 77001; 78226; 80048; 80053; 80069; 80076; 80202; 81001; 81025; 82150; 82436; 82550; 82962; 83605; 83690; 83735; 84100; 84133; 84134; 84145; 84300; 84478; 84703; 85025; 85610; 85651; 86140; 87040; 87070; 87075; 87086; 87106; 87186; 87205; 87324; 93005; 96361; 96374; 96375; 96376; 99156; 99157; C1894; J0610; J0696; J1100; J1170; J1644; J1650; J2175; J2248; J2250; J2354; J2405; J2543; J2550; J2704; J3010; J3360; J3370; J3475; J3480; J3490; J7070; Q0162; Q9967; A9537; C1729; C1751; C1769; C2625; C9113; C9898; J0330; J0360; J2060; J2310; J3420; J7030; J7040; J7050; J7120

== ENCOUNTER 2017-05-21 17:04 | Inpatient (IN) | payer OTHER ==
[~2017-05-21] VITALS: Ht 170.2 cm; Wt 72.3 kg
[~2017-05-21 17:04] MED LIST changes: +ACET650S12 PR; +AMOX1TAB64 PO; +CARV12.543 PO; +DIAZ5VIA3 IV; +DOCU-131 PO; +HEPA5000 SQ; +HYDR2TAB40 PO; +ONDA4TAB10 PO; +ONDA4VIA4 IVPush; +PANT40VI IVPush; +SUCR1ORA5 PO
[2017-05-21] MEDS ORDERED: ERTAPENEM 1 GM in SODIUM CHLORIDE 0.9% 50 ML IV SCH (18:30)
[2017-05-21] MEDS ORDERED: LORazepam 1MG TABLET PO PRN (18:30)
[2017-05-21] MEDS ORDERED: TPN PER PHARMACY MC PRN (18:30)
[2017-05-21] MEDS ORDERED: PLEASE ENTER HEIGHT AND WEIGHT MC SCH (18:30)
[2017-05-21 18:34] VITALS: BP 117/76
[2017-05-21] MEDS ORDERED: PLEASE ENTER ALLERGIES MC SCH ×2 (19:00)
[2017-05-21 19:47] LABS: HEMATOCRIT 31.8 % (34.6-47.8); HEMOGLOBIN 10.4 g/dL (11.7-16.4); WHITE BLOOD COUNT 16.9 x10^3/uL (3.4-10)
[2017-05-21 19:49] VITALS: BP 117/79
[2017-05-21 20:00] LABS: ASPARTATE AMINO TRANSFERASE 116 U/L (15-37); BLOOD UREA NITROGEN 10 mg/dL (7-18)
[2017-05-21] MEDS: SODIUM CHLORIDE 0.9% 1,000 ML IV SCH (20:58)
[2017-05-21] MEDS: MEROPENEM 1 GM in SODIUM CHLORIDE 0.9% 100 ML IV SCH (20:58)
[2017-05-21] MEDS: ENOXAPARIN 40 MG/0.4 ML SQ SCH (21:07)
[2017-05-21] MEDS: HYDROmorphone 2 MG/ML, 1ML IVPush PRN (21:07)
[2017-05-22] MEDS: FENTANYL 75 MCG PATCH TD SCH (00:09)
[2017-05-22] MEDS: SCOPOLAMINE PATCH, 1.5MG PATCH.TD72 TD SCH (00:10)
[2017-05-22] MEDS: ONDANSETRON 2MG/ML, 2ML IVPush PRN ×4 (00:24→20:06)
[2017-05-22] MEDS: HYDROmorphone 2 MG/ML, 1ML IVPush PRN ×5 (00:25→20:08)
[2017-05-22 00:49] VITALS: BP 116/79
[2017-05-22] MEDS: PROMETHAZINE 25 MG/ML, 1ML IM PRN (02:46)
[2017-05-22] MEDS: LORazepam 2 MG/ML, 1ML IVPush PRN ×2 (02:52→21:50)
[2017-05-22 05:05] LABS: HEMATOCRIT 31.4 % (34.6-47.8); HEMOGLOBIN 10.4 g/dL (11.7-16.4); WHITE BLOOD COUNT 16.6 x10^3/uL (3.4-10)
[2017-05-22] MEDS: MEROPENEM 1 GM in SODIUM CHLORIDE 0.9% 100 ML IV SCH ×3 (05:20→20:17)
[2017-05-22] MEDS: SODIUM CHLORIDE 0.9% 1,000 ML IV SCH ×3 (05:21→18:20)
[2017-05-22 05:42] LABS: ASPARTATE AMINO TRANSFERASE 136 U/L (15-37); BLOOD UREA NITROGEN 10 mg/dL (7-18)
[2017-05-22 07:05] VITALS: BP 112/77
[2017-05-22] MEDS: PANTOPRAZOLE 40 MG IV IVPush SCH (07:23)
[2017-05-22] MEDS ORDERED: FILTER, DISP 1.2 MICRON FOR TPN/PVN IV PRN (14:30)
[2017-05-22 14:58] VITALS: BP 126/85
[2017-05-22] MEDS ORDERED: LIDOCAINE 1%, 20ML ONE (15:15)
[2017-05-22] MEDS ORDERED: FENTANYL PF 100 MCG/2ML ONE (15:17)
[2017-05-22] MEDS ORDERED: MIDAZOLAM 1 MG/ML, 5ML ONE (15:17)
[2017-05-22] MEDS ORDERED: NALOXONE 1 MG/ML, 2ML ONE (15:18)
[2017-05-22] MEDS ORDERED: FLUMAZENIL 0.1 MG/1 ML, 5ML ONE (15:18)
[2017-05-22] MEDS ORDERED: AMINO ACID 10% IV SCH (17:00)
[2017-05-22] MEDS ORDERED: DEXTROSE 50%, 50ML SYRINGE IVPush PRN (17:00)
[2017-05-22] MEDS ORDERED: DEXTROSE 10% 500 ML IV PRN (17:00)
[2017-05-22] MEDS ORDERED: DEXTROSE 70% IV SCH (17:00)
[2017-05-22] MEDS ORDERED: FAT EMULSIONS IV SCH (17:00)
[2017-05-22] MEDS ORDERED: [UNRECOGNIZED DRUG - OTHER] IV SCH (17:00)
[2017-05-22 20:00] VITALS: BP 131/89
[2017-05-22] MEDS: ENOXAPARIN 40 MG/0.4 ML SQ SCH (20:17)
[2017-05-23] VITALS (9 sets, daily range): BP systolic 122–132; BP diastolic 84–90
[2017-05-23] MEDS: HYDROmorphone 2 MG/ML, 1ML IVPush PRN ×7 (00:03→23:14)
[2017-05-23] MEDS: SODIUM CHLORIDE 0.9% 1,000 ML IV SCH (01:00)
[2017-05-23] MEDS: ONDANSETRON 2MG/ML, 2ML IVPush PRN ×3 (03:04→19:29)
[2017-05-23] MEDS: PROMETHAZINE 25 MG/ML, 1ML IM PRN ×2 (04:35→12:54)
[2017-05-23 04:38] LABS: HEMATOCRIT 33.2 % (34.6-47.8); HEMOGLOBIN 10.9 g/dL (11.7-16.4); WHITE BLOOD COUNT 17.4 x10^3/uL (3.4-10)
[2017-05-23 04:51] LABS: BLOOD UREA NITROGEN 10 mg/dL (7-18)
[2017-05-23 04:56] LABS: ASPARTATE AMINO TRANSFERASE 143 U/L (15-37)
[2017-05-23] MEDS: MEROPENEM 1 GM in SODIUM CHLORIDE 0.9% 100 ML IV SCH ×3 (05:41→20:11)
[2017-05-23] MEDS: PANTOPRAZOLE 40 MG IV IVPush SCH (08:01)
[2017-05-23] MEDS ORDERED: INSULIN REGULAR LOW DOSE QDAY SQ-INSULIN SCH ×2 (09:00)
[2017-05-23] MEDS: LORazepam 2 MG/ML, 1ML IVPush PRN (10:23)
[2017-05-23] MEDS ORDERED: [UNRECOGNIZED DRUG - OTHER] IV SCH (17:00)
[2017-05-23] MEDS ORDERED: FAT EMULSIONS IV SCH (17:00)
[2017-05-23] MEDS ORDERED: FILTER, DISP 1.2 MICRON FOR TPN/PVN IV PRN (17:00)
[2017-05-23] MEDS ORDERED: AMINO ACID 10% IV SCH (17:00)
[2017-05-23] MEDS ORDERED: DEXTROSE 70% IV SCH (17:00)
[2017-05-23] MEDS: ENOXAPARIN 40 MG/0.4 ML SQ SCH (22:39)
[2017-05-24 00:39] VITALS: BP 127/86
[2017-05-24] MEDS: LORazepam 2 MG/ML, 1ML IVPush PRN ×3 (00:53→23:16)
[2017-05-24] MEDS: ONDANSETRON 2MG/ML, 2ML IVPush PRN ×4 (02:56→21:56)
[2017-05-24] MEDS: HYDROmorphone 2 MG/ML, 1ML IVPush PRN ×6 (02:56→22:44)
[2017-05-24] MEDS: MEROPENEM 1 GM in SODIUM CHLORIDE 0.9% 100 ML IV SCH ×3 (05:40→21:33)
[2017-05-24 05:58] LABS: HEMATOCRIT 38.5 % (34.6-47.8); HEMOGLOBIN 12.8 g/dL (11.7-16.4); WHITE BLOOD COUNT 17.2 x10^3/uL (3.4-10)
[2017-05-24 06:16] LABS: ASPARTATE AMINO TRANSFERASE 162 U/L (15-37); BLOOD UREA NITROGEN 9 mg/dL (7-18)
[2017-05-24 07:37] VITALS: BP 127/86
[2017-05-24] MEDS: PANTOPRAZOLE 40 MG IV IVPush SCH (07:55)
[2017-05-24] MEDS: INSULIN REGULAR, HUMAN 100 UNITS/ML, 3ML MEDIUM DOSE SS SQ-INSULIN SCH (09:00)
[2017-05-24 14:03] VITALS: BP 128/88
[2017-05-24] MEDS ORDERED: BUPIVACAINE/PF-EPI 0.5% 1:200K ONE (14:08)
[2017-05-24] MEDS ORDERED: FENTANYL PF 250 MCG/5ML ONE ×2 (15:20→17:20)
[2017-05-24] MEDS ORDERED: MIDAZOLAM 1 MG/ML, 2ML ONE (15:21)
[2017-05-24] MEDS ORDERED: PROPOFOL 10 MG/ML, 20ML ONE (15:35)
[2017-05-24] MEDS ORDERED: ROCURONIUM 10 MG/ML ONE (15:35)
[2017-05-24] MEDS ORDERED: GLYCOPYRROLATE 0.2MG/1ML ONE (15:35)
[2017-05-24] MEDS ORDERED: NEOSTIGMINE 1 MG/ML, 10ML ONE (15:35)
[2017-05-24] MEDS ORDERED: ONDANSETRON 2MG/ML, 2ML ONE (15:35)
[2017-05-24] MEDS ORDERED: KETAMINE 10 MG/ML, 20ML ONE (15:37)
[2017-05-24] MEDS ORDERED: ALBUMIN HUMAN 5% 500 ML ONE ×2 (16:06→16:27)
[2017-05-24] MEDS ORDERED: DEXTROSE 70% IV SCH (17:00)
[2017-05-24] MEDS ORDERED: [UNRECOGNIZED DRUG - OTHER] IV SCH (17:00)
[2017-05-24] MEDS ORDERED: FILTER, DISP 1.2 MICRON FOR TPN/PVN IV PRN (17:00)
[2017-05-24] MEDS ORDERED: AMINO ACID 10% IV SCH (17:00)
[2017-05-24] MEDS ORDERED: FAT EMULSIONS IV SCH (17:00)
[2017-05-24] MEDS ORDERED: HYDROmorphone 1 MG/ML, 1ML ONE ×3 (17:01→17:47)
[2017-05-24] MEDS: HYDROmorphone 1 MG/ML, 1ML IV PRN ×8 (17:35→19:00)
[2017-05-24] MEDS: FENTANYL PF 100 MCG/2ML IV PRN ×2 (17:45→17:50)
[2017-05-24] MEDS ORDERED: FENTANYL PF 100 MCG/2ML ONE (17:47)
[2017-05-24] MEDS ORDERED: OXYcodone 5 MG/5 ML ORAL.SOL UDC PO PRN (18:00)
[2017-05-24] MEDS ORDERED: LABETALOL 5MG/ML, 20ML IV PRN (18:00)
[2017-05-24] MEDS ORDERED: MIDAZOLAM 1 MG/ML, 2ML IV PRN (18:00)
[2017-05-24] MEDS ORDERED: HYDROcodone/APAP 7.5-325MG/15ML UDC PO PRN (18:00)
[2017-05-24] MEDS ORDERED: PROMETHAZINE 25 MG/ML, 1ML IV PRN (18:00)
[2017-05-24] MEDS ORDERED: MEPERIDINE/PF 25MG/0.5ML IVPush PRN (18:00)
[2017-05-24] MEDS ORDERED: ONDANSETRON 2MG/ML, 2ML IVPush PRN (18:00)
[2017-05-24] MEDS ORDERED: ACETAMINOPHEN 325 MG TABLET PO PRN (18:00)
[2017-05-24] MEDS ORDERED: hydrALAzine 20 MG/ML, 1ML IV PRN (18:00)
[2017-05-24] MEDS ORDERED: HYDROmorphone 2 MG/ML, 1ML ONE (18:11)
[2017-05-24] MEDS ORDERED: HYDROmorphone PCA 30 MG/30 ML ONE (18:11)
[2017-05-24] MEDS ORDERED: BUPIVACAINE/PF 0.25% ONE (18:16)
[2017-05-24] MEDS ORDERED: HYDROmorphone PCA 30 MG/30 ML IV PRN (18:30)
[2017-05-24 19:41] VITALS: BP 139/89
[2017-05-24] MEDS: ENOXAPARIN 40 MG/0.4 ML SQ SCH (21:34)
[2017-05-24] MEDS: FENTANYL REMOVE PATCH NOTE XX SCH (22:03)
[2017-05-24] MEDS: FENTANYL 75 MCG PATCH TD SCH (22:05)
[2017-05-24] MEDS: SCOPOLAMINE PATCH, 1.5MG PATCH.TD72 TD SCH (22:06)
[2017-05-24] MEDS ORDERED: ACETAMINOPHEN 325 MG TABLET ONE (22:38)
[2017-05-24] MEDS: ACETAMINOPHEN 325 MG TABLET PO PRN (22:42)
[2017-05-25] MEDS: ACETAMINOPHEN 650 MG SUPP PR PRN (00:07)
[2017-05-25] MEDS: PROMETHAZINE 25 MG/ML, 1ML IM PRN (00:14)
[2017-05-25] MEDS: HYDROmorphone 2 MG/ML, 1ML IVPush PRN ×6 (00:27→23:51)
[2017-05-25] MEDS ORDERED: LABETALOL 5MG/ML, 20ML ONE (00:53)
[2017-05-25] MEDS ORDERED: HYDROmorphone PCA 30 MG/30 ML IV PRN ×2 (01:00→01:30)
[2017-05-25] MEDS ORDERED: LABETALOL 5MG/ML, 20ML IVPush ONE ×2 (01:00→06:30)
[2017-05-25 01:22] LABS: BLOOD UREA NITROGEN 8 mg/dL (7-18)
[2017-05-25 01:49] LABS: HEMATOCRIT 46.5 % (34.6-47.8); HEMOGLOBIN 14.9 g/dL (11.7-16.4); WHITE BLOOD COUNT 31.6 x10^3/uL (3.4-10)
[2017-05-25] MEDS: ONDANSETRON 2MG/ML, 2ML IVPush PRN ×3 (02:43→17:04)
[2017-05-25] MEDS: MEROPENEM 1 GM in SODIUM CHLORIDE 0.9% 100 ML IV SCH ×3 (04:51→20:41)
[2017-05-25 05:14] LABS: HEMATOCRIT 43.6 % (34.6-47.8); HEMOGLOBIN 14.2 g/dL (11.7-16.4); WHITE BLOOD COUNT 38.8 x10^3/uL (3.4-10)
[2017-05-25 05:30] LABS: ASPARTATE AMINO TRANSFERASE 97 U/L (15-37); BLOOD UREA NITROGEN 11 mg/dL (7-18)
[2017-05-25 05:55] LABS: DIFF TOTAL CELLS COUNTED 100 CELL DIFF
[2017-05-25 05:56] LABS: VERIFY COUNTS? YES
[2017-05-25 05:57] LABS: ANISOCYTOSIS 1+
[2017-05-25] MEDS: LORazepam 2 MG/ML, 1ML IVPush PRN ×2 (09:23→17:04)
[2017-05-25] MEDS: INSULIN REGULAR, HUMAN 100 UNITS/ML, 3ML MEDIUM DOSE SS SQ-INSULIN SCH (10:24)
[2017-05-25] MEDS: ACETAMINOPHEN 325 MG TABLET PO PRN (10:26)
[2017-05-25] MEDS: PANTOPRAZOLE 40 MG IV IVPush SCH (10:26)
[2017-05-25] MEDS: MICAFUNGIN 100 MG in SODIUM CHLORIDE 0.9% 100 ML IV SCH (16:10)
[2017-05-25] MEDS ORDERED: [UNRECOGNIZED DRUG - OTHER] IV SCH (17:00)
[2017-05-25] MEDS ORDERED: AMINO ACID 10% IV SCH (17:00)
[2017-05-25] MEDS ORDERED: FILTER, DISP 1.2 MICRON FOR TPN/PVN IV PRN (17:00)
[2017-05-25] MEDS ORDERED: FAT EMULSIONS IV SCH (17:00)
[2017-05-25] MEDS ORDERED: DEXTROSE 70% IV SCH (17:00)
[2017-05-25] MEDS: ENOXAPARIN 40 MG/0.4 ML SQ SCH (20:41)
[2017-05-26] MEDS: LORazepam 2 MG/ML, 1ML IVPush PRN ×3 (02:30→21:31)
[2017-05-26] MEDS: ONDANSETRON 2MG/ML, 2ML IVPush PRN ×2 (02:30→11:09)
[2017-05-26] MEDS: MEROPENEM 1 GM in SODIUM CHLORIDE 0.9% 100 ML IV SCH ×3 (03:59→21:22)
[2017-05-26 04:10] LABS: HEMATOCRIT 36.3 % (34.6-47.8); HEMOGLOBIN 11.6 g/dL (11.7-16.4); WHITE BLOOD COUNT 26.4 x10^3/uL (3.4-10)
[2017-05-26 04:20] LABS: ASPARTATE AMINO TRANSFERASE 45 U/L (15-37); BLOOD UREA NITROGEN 10 mg/dL (7-18)
[2017-05-26] MEDS: HYDROmorphone 2 MG/ML, 1ML IVPush PRN ×6 (04:54→23:18)
[2017-05-26 05:30] VITALS: BP 125/76
[2017-05-26] MEDS: ACETAMINOPHEN 325 MG TABLET PO PRN (05:36)
[2017-05-26] MEDS: PANTOPRAZOLE 40 MG IV IVPush SCH (09:32)
[2017-05-26] MEDS: HYDROmorphone PCA 30 MG/30 ML IV PRN (13:08)
[2017-05-26] MEDS: MICAFUNGIN 100 MG in SODIUM CHLORIDE 0.9% 100 ML IV SCH (15:25)
[2017-05-26] MEDS ORDERED: FAT EMULSIONS IV SCH (17:00)
[2017-05-26] MEDS ORDERED: DEXTROSE 70% IV SCH (17:00)
[2017-05-26] MEDS ORDERED: FILTER, DISP 1.2 MICRON FOR TPN/PVN IV PRN (17:00)
[2017-05-26] MEDS ORDERED: AMINO ACID 10% IV SCH (17:00)
[2017-05-26] MEDS: INSULIN REGULAR 100 UNITS/ML, 3ML VIAL SQ-INSULIN SCH (17:00)
[2017-05-26] MEDS ORDERED: [UNRECOGNIZED DRUG - OTHER] IV SCH (17:00)
[2017-05-26] MEDS: ENOXAPARIN 40 MG/0.4 ML SQ SCH (21:22)
[2017-05-27] MEDS: ONDANSETRON 2MG/ML, 2ML IVPush PRN ×4 (00:12→22:03)
[2017-05-27] MEDS: HYDROmorphone 2 MG/ML, 1ML IVPush PRN ×3 (02:20→09:54)
[2017-05-27] MEDS: MEROPENEM 1 GM in SODIUM CHLORIDE 0.9% 100 ML IV SCH (04:28)
[2017-05-27 05:29] LABS: BLOOD UREA NITROGEN 11 mg/dL (7-18)
[2017-05-27 05:31] LABS: HEMATOCRIT 32.7 % (34.6-47.8); HEMOGLOBIN 10.6 g/dL (11.7-16.4); WHITE BLOOD COUNT 30.3 x10^3/uL (3.4-10)
[2017-05-27 06:00] VITALS: BP 127/85
[2017-05-27 06:01] LABS: DIFF TOTAL CELLS COUNTED 100 CELL DIFF
[2017-05-27 06:02] LABS: ANISOCYTOSIS 1+; POIKILOCYTOSIS 1+; VERIFY COUNTS? YES
[2017-05-27 06:03] LABS: LARGE PLATELETS 1+
[2017-05-27 06:55] LABS: ASPARTATE AMINO TRANSFERASE 104 U/L (15-37)
[2017-05-27 06:57] LABS: BLOOD UREA NITROGEN 11 mg/dL (7-18)
[2017-05-27] MEDS ORDERED: METOPROLOL 1 MG/ML, 5ML ONE (07:22)
[2017-05-27] MEDS ORDERED: METOPROLOL 1 MG/ML, 5ML IVPush ONE (08:00)
[2017-05-27] MEDS: PANTOPRAZOLE 40 MG IV IVPush SCH (08:02)
[2017-05-27] MEDS: LORazepam 2 MG/ML, 1ML IVPush PRN ×2 (08:03→16:05)
[2017-05-27] MEDS: INSULIN REGULAR 100 UNITS/ML, 3ML VIAL SQ-INSULIN SCH (09:00)
[2017-05-27] MEDS: PROMETHAZINE 25 MG/ML, 1ML IM PRN (09:48)
[2017-05-27] MEDS: AMPICILLIN/SULBACTAM 3 GM in SODIUM CHLORIDE 0.9% 100 ML IV SCH ×2 (10:50→16:05)
[2017-05-27] MEDS ORDERED: KETAMINE 10 MG/ML, 20ML ONE ×2 (11:40→23:38)
[2017-05-27] MEDS ORDERED: ROCURONIUM 10 MG/ML ONE (11:40)
[2017-05-27] MEDS ORDERED: PROPOFOL 10 MG/ML, 20ML ONE (11:40)
[2017-05-27] MEDS ORDERED: SUCCINYLCHOLINE 20 MG/ML, 10ML ONE (11:40)
[2017-05-27] MEDS ORDERED: PHENYLEPHRINE 10 MG/ML ONE (11:40)
[2017-05-27] MEDS: MICAFUNGIN 100 MG in SODIUM CHLORIDE 0.9% 100 ML IV SCH (14:44)
[2017-05-27] MEDS: METOPROLOL 1 MG/ML, 5ML IVPush PRN (14:45)
[2017-05-27] MEDS: HYDROmorphone PCA 30 MG/30 ML IV PRN (16:23)
[2017-05-27] MEDS: SODIUM CHLORIDE 0.9% 1,000 ML IV SCH (16:24)
[2017-05-27] MEDS ORDERED: DEXTROSE 70% IV SCH (17:00)
[2017-05-27] MEDS ORDERED: AMINO ACID 10% IV SCH (17:00)
[2017-05-27] MEDS ORDERED: FAT EMULSIONS IV SCH (17:00)
[2017-05-27] MEDS ORDERED: [UNRECOGNIZED DRUG - OTHER] IV SCH (17:00)
[2017-05-27] MEDS ORDERED: SODIUM CHLORIDE 0.9%, 500ML IVBOLUS PRN (19:30)
[2017-05-27 19:59] LABS: HEMATOCRIT 18.3 % (34.6-47.8); HEMOGLOBIN 5.9 g/dL (11.7-16.4)
[2017-05-27 20:48] LABS: HEMATOCRIT 16.2 % (34.6-47.8); HEMOGLOBIN 5.1 g/dL (11.7-16.4)
[2017-05-27] MEDS: ENOXAPARIN 40 MG/0.4 ML SQ SCH (21:00)
[2017-05-27 21:51] VITALS: BP 101/57
[2017-05-27 22:00] VITALS: BP 111/54
[2017-05-27 22:15] VITALS: BP 90/58
[2017-05-27 23:00] VITALS: BP 110/64
[2017-05-27 23:15] VITALS: BP 106/47
[2017-05-27] MEDS: FENTANYL 75 MCG PATCH TD SCH (23:30)
[2017-05-27] MEDS ORDERED: FENTANYL PF 250 MCG/5ML ONE (23:38)
[2017-05-28] VITALS (7 sets, daily range): BP systolic 111–134; BP diastolic 55–67
[2017-05-28] MEDS ORDERED: LORazepam 2 MG/ML, 1ML IVPush ONE
[2017-05-28] MEDS ORDERED: NOREPINEPHRINE 1 MG/ML, 4ML ONE (01:20)
[2017-05-28] MEDS ORDERED: LACTATED RINGERS 1,000 ML IV SCH (01:30)
[2017-05-28] MEDS: SCOPOLAMINE PATCH, 1.5MG PATCH.TD72 TD SCH (01:30)
[2017-05-28] MEDS: FENTANYL REMOVE PATCH NOTE XX SCH ×2 (01:30→13:46)
[2017-05-28] MEDS ORDERED: NOREPINEPHRINE 4 MG in SODIUM CHLORIDE 0.9% 246 ML IV PRN (01:30)
[2017-05-28] MEDS ORDERED: PROPOFOL 100 ML IV ONE (01:32)
[2017-05-28] MEDS ORDERED: FENTANYL PF 2,500 MCG in SODIUM CHLORIDE 0.9% 200 ML IV PRN (02:00)
[2017-05-28] MEDS: AMPICILLIN/SULBACTAM 3 GM in SODIUM CHLORIDE 0.9% 100 ML IV SCH ×4 (02:29→19:32)
[2017-05-28 02:33] LABS: HEMATOCRIT 35.6 % (34.6-47.8); HEMOGLOBIN 11.6 g/dL (11.7-16.4); WHITE BLOOD COUNT 29.1 x10^3/uL (3.4-10)
[2017-05-28] MEDS: PROPOFOL 100 ML IV PRN ×2 (02:37→07:29)
[2017-05-28 03:01] LABS: DIFF TOTAL CELLS COUNTED 100 CELL DIFF
[2017-05-28 03:04] LABS: ANISOCYTOSIS 1+; VERIFY COUNTS? YES
[2017-05-28 03:05] LABS: POLYCHROMASIA 1+
[2017-05-28 03:21] LABS: HEMATOCRIT 37.1 % (34.6-47.8)
[2017-05-28] MEDS ORDERED: ALBUTEROL/IPRATROPIUM 2.5MG/0.5MG, 3 ML INLINE PRN (04:30)
[2017-05-28] MEDS ORDERED: LACTULOSE 20 GM/30 ML UDC NG PRN (04:30)
[2017-05-28] MEDS ORDERED: PHARMACY MAY ADJ FOR RENAL FX MC SCH (04:30)
[2017-05-28] MEDS ORDERED: GLUCAGON 1 MG IM PRN (04:30)
[2017-05-28] MEDS ORDERED: LIDOCAINE-MPF 1%, 2ML ENDO PRN (04:30)
[2017-05-28] MEDS ORDERED: OMNIPAQUE 350 MG/ML, 100ML BOTTLE ONE (05:06)
[2017-05-28 05:15] LABS: ASPARTATE AMINO TRANSFERASE 155 U/L (15-37); BLOOD UREA NITROGEN 31 mg/dL (7-18)
[2017-05-28] MEDS: PANTOPRAZOLE 40 MG IV IVPush SCH (08:13)
[2017-05-28] MEDS: ACETAMINOPHEN 325 MG TABLET PO PRN (08:16)
[2017-05-28] MEDS ORDERED: MIDAZOLAM HCL 25 MG in SODIUM CHLORIDE 0.9% 245 ML IV PRN (09:00)
[2017-05-28] MEDS: INSULIN REGULAR 100 UNITS/ML, 3ML VIAL SQ-INSULIN SCH ×2 (09:32→21:00)
[2017-05-28] MEDS: SODIUM CHLORIDE 0.9% 1,000 ML IV SCH ×2 (09:52→14:20)
[2017-05-28 10:09] LABS: HEMATOCRIT 31.6 % (34.6-47.8); HEMOGLOBIN 10.6 g/dL (11.7-16.4); WHITE BLOOD COUNT 35.9 x10^3/uL (3.4-10)
[2017-05-28 10:10] LABS: DIFF TOTAL CELLS COUNTED 100 CELL DIFF
[2017-05-28 10:12] LABS: ANISOCYTOSIS 1+; POLYCHROMASIA 1+; VERIFY COUNTS? YES
[2017-05-28 10:13] LABS: LARGE PLATELETS 1+
[2017-05-28] MEDS ORDERED: SODIUM CHLORIDE 0.9%, 500ML IVBOLUS ONE (12:00)
[2017-05-28] MEDS: MIDAZOLAM HCL 50 MG in SODIUM CHLORIDE 0.9% 240 ML IV PRN ×3 (12:32→23:32)
[2017-05-28] MEDS: FENTANYL 75 MCG PATCH TD SCH (13:46)
[2017-05-28] MEDS: MICAFUNGIN 100 MG in SODIUM CHLORIDE 0.9% 100 ML IV SCH (14:19)
[2017-05-28 15:07] LABS: HEMATOCRIT 25.3 % (34.6-47.8); HEMOGLOBIN 8.4 g/dL (11.7-16.4); WHITE BLOOD COUNT 21.3 x10^3/uL (3.4-10)
[2017-05-28 15:27] LABS: DIFF TOTAL CELLS COUNTED 100 CELL DIFF
[2017-05-28 15:29] LABS: VERIFY COUNTS? YES
[2017-05-28 15:30] LABS: ANISOCYTOSIS 1+; POLYCHROMASIA 1+
[2017-05-28 15:31] LABS: LARGE PLATELETS 1+
[2017-05-28] MEDS ORDERED: [UNRECOGNIZED DRUG - OTHER] IV SCH (17:00)
[2017-05-28] MEDS ORDERED: AMINO ACID 10% IV SCH (17:00)
[2017-05-28] MEDS ORDERED: FAT EMULSIONS IV SCH (17:00)
[2017-05-28] MEDS ORDERED: DEXTROSE 70% IV SCH (17:00)
[2017-05-28] MEDS: FILTER, DISP 1.2 MICRON FOR TPN/PVN IV PRN (17:43)
[2017-05-28 21:13] LABS: HEMATOCRIT 28.4 % (34.6-47.8); HEMOGLOBIN 9.5 g/dL (11.7-16.4); WHITE BLOOD COUNT 21.1 x10^3/uL (3.4-10)
[2017-05-29] MEDS: AMPICILLIN/SULBACTAM 3 GM in SODIUM CHLORIDE 0.9% 100 ML IV SCH ×4 (02:20→20:05)
[2017-05-29 03:16] LABS: ABG COLLECTION SITE ARTERIAL LINE
[2017-05-29 03:24] LABS: HEMATOCRIT 27.4 % (34.6-47.8); HEMOGLOBIN 9.1 g/dL (11.7-16.4); WHITE BLOOD COUNT 20.8 x10^3/uL (3.4-10)
[2017-05-29 03:28] LABS: BLOOD UREA NITROGEN 25 mg/dL (7-18)
[2017-05-29 03:31] LABS: DIFF TOTAL CELLS COUNTED 100 CELL DIFF
[2017-05-29 03:46] LABS: ANISOCYTOSIS 1+; POLYCHROMASIA 1+; VERIFY COUNTS? YES
[2017-05-29] MEDS: MIDAZOLAM HCL 50 MG in SODIUM CHLORIDE 0.9% 240 ML IV PRN ×3 (05:38→18:23)
[2017-05-29 05:39] VITALS: BP 125/61
[2017-05-29] MEDS: FENTANYL PF 2,500 MCG in SODIUM CHLORIDE 0.9% 200 ML IV PRN (05:39)
[2017-05-29] MEDS: SODIUM CHLORIDE 0.9% 1,000 ML IV SCH (06:07)
[2017-05-29] MEDS: PANTOPRAZOLE 40 MG IV IVPush SCH (07:27)
[2017-05-29] MEDS: METOPROLOL 1 MG/ML, 5ML IVPush PRN (07:34)
[2017-05-29] MEDS: INSULIN REGULAR 100 UNITS/ML, 3ML VIAL SQ-INSULIN SCH ×2 (09:00→21:00)
[2017-05-29 09:18] LABS: HEMATOCRIT 26.8 % (34.6-47.8); WHITE BLOOD COUNT 20.4 x10^3/uL (3.4-10)
[2017-05-29 15:21] LABS: HEMATOCRIT 26.3 % (34.6-47.8); HEMOGLOBIN 8.7 g/dL (11.7-16.4); WHITE BLOOD COUNT 18.8 x10^3/uL (3.4-10)
[2017-05-29] MEDS: MICAFUNGIN 100 MG in SODIUM CHLORIDE 0.9% 100 ML IV SCH (15:26)
[2017-05-29] MEDS ORDERED: [UNRECOGNIZED DRUG - OTHER] IV SCH (17:00)
[2017-05-29] MEDS ORDERED: AMINO ACID 10% IV SCH ×2 (17:00)
[2017-05-29] MEDS ORDERED: FAT EMULSIONS IV SCH ×2 (17:00)
[2017-05-29] MEDS ORDERED: DEXTROSE 70% IV SCH ×2 (17:00)
[2017-05-29] MEDS ORDERED: [UNRECOGNIZED DRUG - OTHER] IV SCH (17:00)
[2017-05-29] MEDS: FILTER, DISP 1.2 MICRON FOR TPN/PVN IV PRN (18:23)
[2017-05-29 19:56] LABS: HEMATOCRIT 27.3 % (34.6-47.8); HEMOGLOBIN 8.9 g/dL (11.7-16.4); WHITE BLOOD COUNT 18.5 x10^3/uL (3.4-10)
[2017-05-30] MEDS: MIDAZOLAM HCL 50 MG in SODIUM CHLORIDE 0.9% 240 ML IV PRN ×3 (00:02→22:08)
[2017-05-30] MEDS: SODIUM CHLORIDE 0.9% 1,000 ML IV SCH (00:03)
[2017-05-30] MEDS: ACETAMINOPHEN 650 MG SUPP PR PRN ×3 (00:05→14:14)
[2017-05-30] MEDS: AMPICILLIN/SULBACTAM 3 GM in SODIUM CHLORIDE 0.9% 100 ML IV SCH ×4 (02:05→21:05)
[2017-05-30 03:09] LABS: HEMATOCRIT 26.1 % (34.6-47.8); HEMOGLOBIN 8.6 g/dL (11.7-16.4); WHITE BLOOD COUNT 15.9 x10^3/uL (3.4-10)
[2017-05-30 03:23] LABS: BLOOD UREA NITROGEN 17 mg/dL (7-18)
[2017-05-30 04:36] LABS: ABG COLLECTION SITE LEFT RADIAL; COLLATERAL CIRCULATION TESTING NORMAL
[2017-05-30] MEDS: FENTANYL PF 2,500 MCG in SODIUM CHLORIDE 0.9% 200 ML IV PRN (04:45)
[2017-05-30] MEDS: INSULIN REGULAR 100 UNITS/ML, 3ML VIAL SQ-INSULIN SCH (09:00)
[2017-05-30] MEDS: PANTOPRAZOLE 40 MG IV IVPush SCH (09:38)
[2017-05-30 09:49] LABS: HEMATOCRIT 25.5 % (34.6-47.8); HEMOGLOBIN 8.4 g/dL (11.7-16.4); WHITE BLOOD COUNT 15.1 x10^3/uL (3.4-10)
[2017-05-30] MEDS ORDERED: SODIUM CHLORIDE 0.45% 1,000 ML IV SCH (10:00)
[2017-05-30 10:16] LABS: ANISOCYTOSIS 1+; POLYCHROMASIA 1+
[2017-05-30] MEDS: LINEZOLID PMX 600MG/300ML 300 ML IV SCH (12:39)
[2017-05-30] MEDS ORDERED: [UNRECOGNIZED DRUG - OTHER] IV SCH (17:00)
[2017-05-30] MEDS ORDERED: DEXTROSE 70% IV SCH (17:00)
[2017-05-30] MEDS ORDERED: AMINO ACID 10% IV SCH (17:00)
[2017-05-30] MEDS ORDERED: FAT EMULSIONS IV SCH (17:00)
[2017-05-30] MEDS: FILTER, DISP 1.2 MICRON FOR TPN/PVN IV PRN (19:17)
[2017-05-31] MEDS: FENTANYL 75 MCG PATCH TD SCH (00:21)
[2017-05-31] MEDS: LINEZOLID PMX 600MG/300ML 300 ML IV SCH ×2 (00:21→11:44)
[2017-05-31] MEDS: FENTANYL PF 2,500 MCG in SODIUM CHLORIDE 0.9% 200 ML IV PRN ×2 (01:15→15:21)
[2017-05-31] MEDS: SCOPOLAMINE PATCH, 1.5MG PATCH.TD72 TD SCH (01:30)
[2017-05-31] MEDS: FENTANYL REMOVE PATCH NOTE XX SCH (01:30)
[2017-05-31] MEDS: MIDAZOLAM HCL 50 MG in SODIUM CHLORIDE 0.9% 240 ML IV PRN ×3 (01:42→10:25)
[2017-05-31] MEDS: AMPICILLIN/SULBACTAM 3 GM in SODIUM CHLORIDE 0.9% 100 ML IV SCH ×4 (03:11→20:57)
[2017-05-31 03:30] LABS: HEMATOCRIT 28.1 % (34.6-47.8); HEMOGLOBIN 9.3 g/dL (11.7-16.4); WHITE BLOOD COUNT 16.7 x10^3/uL (3.4-10)
[2017-05-31 03:39] LABS: BLOOD UREA NITROGEN 9 mg/dL (7-18)
[2017-05-31 04:14] LABS: DIFF TOTAL CELLS COUNTED 100 CELL DIFF
[2017-05-31 04:20] LABS: ANISOCYTOSIS 1+; POLYCHROMASIA 1+; VERIFY COUNTS? YES
[2017-05-31 04:21] LABS: SMUDGE CELLS 1+
[2017-05-31 04:40] LABS: ABG COLLECTION SITE LEFT RADIAL; COLLATERAL CIRCULATION TESTING NORMAL
[2017-05-31] MEDS: PANTOPRAZOLE 40 MG IV IVPush SCH (07:57)
[2017-05-31] MEDS: INSULIN REGULAR 100 UNITS/ML, 3ML VIAL SQ-INSULIN SCH (09:00)
[2017-05-31] MEDS: MIDAZOLAM HCL 100 MG in SODIUM CHLORIDE 0.9% 230 ML IV PRN ×2 (13:46→23:11)
[2017-05-31] MEDS ORDERED: AMINO ACID 10% IV SCH (17:00)
[2017-05-31] MEDS ORDERED: [UNRECOGNIZED DRUG - OTHER] IV SCH (17:00)
[2017-05-31] MEDS ORDERED: DEXTROSE 70% IV SCH (17:00)
[2017-05-31] MEDS ORDERED: FAT EMULSIONS IV SCH (17:00)
[2017-05-31] MEDS ORDERED: FILTER, DISP 1.2 MICRON FOR TPN/PVN IV PRN (17:00)
[2017-06-01] MEDS: LINEZOLID PMX 600MG/300ML 300 ML IV SCH ×2 (00:26→11:58)
[2017-06-01] MEDS: AMPICILLIN/SULBACTAM 3 GM in SODIUM CHLORIDE 0.9% 100 ML IV SCH ×4 (03:25→22:01)
[2017-06-01 04:25] LABS: HEMATOCRIT 26.7 % (34.6-47.8); HEMOGLOBIN 8.7 g/dL (11.7-16.4); WHITE BLOOD COUNT 15.4 x10^3/uL (3.4-10)
[2017-06-01 04:34] LABS: BLOOD UREA NITROGEN 8 mg/dL (7-18)
[2017-06-01 04:57] LABS: ABG COLLECTION SITE RIGHT BRACHIAL
[2017-06-01] MEDS: PANTOPRAZOLE 40 MG IV IVPush SCH (07:55)
[2017-06-01] MEDS: MIDAZOLAM HCL 100 MG in SODIUM CHLORIDE 0.9% 230 ML IV PRN (07:58)
[2017-06-01] MEDS: INSULIN REGULAR 100 UNITS/ML, 3ML VIAL SQ-INSULIN SCH (09:00)
[2017-06-01] MEDS: FENTANYL PF 2,500 MCG in SODIUM CHLORIDE 0.9% 200 ML IV PRN (10:54)
[2017-06-01] MEDS: SODIUM CHLORIDE 0.9% 1,000 ML IV SCH (11:07)
[2017-06-01] MEDS ORDERED: [UNRECOGNIZED DRUG - OTHER] IV SCH (17:00)
[2017-06-01] MEDS ORDERED: DEXTROSE 70% IV SCH (17:00)
[2017-06-01] MEDS ORDERED: AMINO ACID 10% IV SCH (17:00)
[2017-06-01] MEDS ORDERED: FAT EMULSIONS IV SCH (17:00)
[2017-06-01] MEDS ORDERED: FILTER, DISP 1.2 MICRON FOR TPN/PVN IV PRN (17:00)
[2017-06-02] MEDS: LINEZOLID PMX 600MG/300ML 300 ML IV SCH ×3 (01:14→23:49)
[2017-06-02] MEDS: AMPICILLIN/SULBACTAM 3 GM in SODIUM CHLORIDE 0.9% 100 ML IV SCH ×2 (03:53→10:39)
[2017-06-02 04:53] LABS: ABG COLLECTION SITE RIGHT RADIAL; COLLATERAL CIRCULATION TESTING NORMAL
[2017-06-02 05:02] LABS: HEMATOCRIT 26.3 % (34.6-47.8); HEMOGLOBIN 8.8 g/dL (11.7-16.4); WHITE BLOOD COUNT 15.4 x10^3/uL (3.4-10)
[2017-06-02 05:06] LABS: BLOOD UREA NITROGEN 8 mg/dL (7-18)
[2017-06-02] MEDS: SODIUM CHLORIDE 0.9% 1,000 ML IV SCH (08:21)
[2017-06-02] MEDS: PANTOPRAZOLE 40 MG IV IVPush SCH (08:25)
[2017-06-02] MEDS: INSULIN REGULAR 100 UNITS/ML, 3ML VIAL SQ-INSULIN SCH (08:30)
[2017-06-02] MEDS ORDERED: [UNRECOGNIZED DRUG - OTHER] IV SCH (17:00)
[2017-06-02] MEDS ORDERED: AMINO ACID 10% IV SCH (17:00)
[2017-06-02] MEDS ORDERED: FAT EMULSIONS IV SCH (17:00)
[2017-06-02] MEDS ORDERED: DEXTROSE 70% IV SCH (17:00)
[2017-06-02] MEDS ORDERED: FILTER, DISP 1.2 MICRON FOR TPN/PVN IV PRN (17:00)
[2017-06-02] MEDS: FENTANYL REMOVE PATCH NOTE XX SCH (18:00)
[2017-06-02] MEDS: SCOPOLAMINE PATCH, 1.5MG PATCH.TD72 TD SCH (18:00)
[2017-06-02] MEDS: FENTANYL 75 MCG PATCH TD SCH (18:13)
[2017-06-03 04:20] LABS: ABG COLLECTION SITE RIGHT RADIAL; COLLATERAL CIRCULATION TESTING NORMAL
[2017-06-03 04:38] LABS: HEMATOCRIT 26.6 % (34.6-47.8); HEMOGLOBIN 8.8 g/dL (11.7-16.4); WHITE BLOOD COUNT 15.7 x10^3/uL (3.4-10)
[2017-06-03 04:44] LABS: BLOOD UREA NITROGEN 8 mg/dL (7-18)
[2017-06-03] MEDS: SODIUM CHLORIDE 0.9% 1,000 ML IV SCH ×2 (04:53→22:27)
[2017-06-03] MEDS: INSULIN REGULAR 100 UNITS/ML, 3ML VIAL SQ-INSULIN SCH (05:00)
[2017-06-03] MEDS: PANTOPRAZOLE 40 MG IV IVPush SCH (07:43)
[2017-06-03] MEDS: FENTANYL PF 100 MCG/2ML IVPush PRN ×4 (10:37→21:41)
[2017-06-03] MEDS: LINEZOLID PMX 600MG/300ML 300 ML IV SCH (11:24)
[2017-06-03] MEDS ORDERED: DEXTROSE 70% IV SCH (17:00)
[2017-06-03] MEDS ORDERED: [UNRECOGNIZED DRUG - OTHER] IV SCH (17:00)
[2017-06-03] MEDS ORDERED: FAT EMULSIONS IV SCH (17:00)
[2017-06-03] MEDS ORDERED: AMINO ACID 10% IV SCH (17:00)
[2017-06-04] MEDS: LINEZOLID PMX 600MG/300ML 300 ML IV SCH ×2 (00:16→12:20)
[2017-06-04] MEDS: FENTANYL PF 100 MCG/2ML IVPush PRN ×6 (01:58→20:28)
[2017-06-04] MEDS: ONDANSETRON 2MG/ML, 2ML IVPush PRN (02:06)
[2017-06-04 03:54] LABS: HEMATOCRIT 27.2 % (34.6-47.8); HEMOGLOBIN 8.9 g/dL (11.7-16.4); WHITE BLOOD COUNT 15.9 x10^3/uL (3.4-10)
[2017-06-04 04:06] LABS: ASPARTATE AMINO TRANSFERASE 183 U/L (15-37); BLOOD UREA NITROGEN 7 mg/dL (7-18)
[2017-06-04 04:22] LABS: ABG COLLECTION SITE RIGHT BRACHIAL
[2017-06-04] MEDS: PROMETHAZINE 25 MG/ML, 1ML IM PRN ×2 (05:03→21:23)
[2017-06-04] MEDS: INSULIN REGULAR 100 UNITS/ML, 3ML VIAL SQ-INSULIN SCH (08:25)
[2017-06-04] MEDS: PANTOPRAZOLE 40 MG IV IVPush SCH (08:27)
[2017-06-04] MEDS ORDERED: FUROSEMIDE 40 MG/4 ML ONE (09:41)
[2017-06-04] MEDS ORDERED: FUROSEMIDE 40 MG/4 ML IV ONE (10:00)
[2017-06-04] MEDS: SODIUM CHLORIDE 0.9% 1,000 ML IV SCH (16:10)
[2017-06-04] MEDS: FAT EMULSIONS IV SCH ×2 (18:07→18:09)
[2017-06-04] MEDS: AMINO ACID 10% IV SCH ×2 (18:07→18:09)
[2017-06-04] MEDS: [UNRECOGNIZED DRUG - OTHER] IV SCH ×2 (18:07→18:09)
[2017-06-04] MEDS: DEXTROSE 70% IV SCH ×2 (18:07→18:09)
[2017-06-04] MEDS: FILTER, DISP 1.2 MICRON FOR TPN/PVN IV PRN (18:09)
[2017-06-05] MEDS: LINEZOLID PMX 600MG/300ML 300 ML IV SCH ×2 (00:11→13:50)
[2017-06-05] MEDS: ONDANSETRON 2MG/ML, 2ML IVPush PRN ×3 (03:05→17:55)
[2017-06-05 04:14] LABS: ABG COLLECTION SITE LEFT RADIAL; COLLATERAL CIRCULATION TESTING NORMAL
[2017-06-05 04:57] LABS: HEMATOCRIT 25.2 % (34.6-47.8); HEMOGLOBIN 8.2 g/dL (11.7-16.4); WHITE BLOOD COUNT 14.7 x10^3/uL (3.4-10)
[2017-06-05 05:02] LABS: BLOOD UREA NITROGEN 7 mg/dL (7-18)
[2017-06-05 05:04] LABS: ASPARTATE AMINO TRANSFERASE 163 U/L (15-37)
[2017-06-05] MEDS: FENTANYL PF 100 MCG/2ML IVPush PRN ×8 (05:09→23:46)
[2017-06-05] MEDS: PROMETHAZINE 25 MG/ML, 1ML IM PRN (07:54)
[2017-06-05] MEDS: INSULIN REGULAR 100 UNITS/ML, 3ML VIAL SQ-INSULIN SCH (08:36)
[2017-06-05] MEDS: PANTOPRAZOLE 40 MG IV IVPush SCH (09:05)
[2017-06-05] MEDS ORDERED: FUROSEMIDE 40 MG/4 ML IV ONE (11:00)
[2017-06-05] MEDS: FILTER, DISP 1.2 MICRON FOR TPN/PVN IV PRN (16:47)
[2017-06-05] MEDS ORDERED: FAT EMULSIONS IV SCH (17:00)
[2017-06-05] MEDS ORDERED: [UNRECOGNIZED DRUG - OTHER] IV SCH (17:00)
[2017-06-05] MEDS ORDERED: DEXTROSE 70% IV SCH (17:00)
[2017-06-05] MEDS ORDERED: AMINO ACID 10% IV SCH (17:00)
[2017-06-05] MEDS: FENTANYL 75 MCG PATCH TD SCH (17:23)
[2017-06-05] MEDS: FENTANYL REMOVE PATCH NOTE XX SCH (17:24)
[2017-06-05] MEDS: SCOPOLAMINE PATCH, 1.5MG PATCH.TD72 TD SCH (17:30)
[2017-06-05] MEDS: LORazepam 2 MG/ML, 1ML IVPush PRN (19:50)
[2017-06-05] MEDS: ACETAMINOPHEN 325 MG TABLET PO PRN (23:46)
[2017-06-06] MEDS: LINEZOLID PMX 600MG/300ML 300 ML IV SCH ×2 (00:03→12:11)
[2017-06-06] MEDS: FENTANYL PF 100 MCG/2ML IVPush PRN ×2 (02:02→13:00)
[2017-06-06 04:40] LABS: ABG COLLECTION SITE LEFT RADIAL; COLLATERAL CIRCULATION TESTING NORMAL
[2017-06-06] MEDS: ONDANSETRON 2MG/ML, 2ML IVPush PRN ×3 (04:41→20:25)
[2017-06-06] MEDS: SODIUM CHLORIDE 0.9% 1,000 ML IV SCH ×2 (04:47→22:49)
[2017-06-06] MEDS: INSULIN REGULAR 100 UNITS/ML, 3ML VIAL SQ-INSULIN SCH (06:00)
[2017-06-06 06:39] LABS: HEMATOCRIT 28.2 % (34.6-47.8); HEMOGLOBIN 9.2 g/dL (11.7-16.4)
[2017-06-06 06:48] LABS: BLOOD UREA NITROGEN 10 mg/dL (7-18)
[2017-06-06] MEDS: PANTOPRAZOLE 40 MG IV IVPush SCH (08:47)
[2017-06-06] MEDS: METOCLOPRAMIDE 5 MG/ML, 2ML IV SCH ×3 (09:00→20:32)
[2017-06-06] MEDS: METHYLNALTREXONE 12 MG/0.6 ML SQ SCH (09:03)
[2017-06-06] MEDS: ACETYLCYSTEINE 20%, 4ML PO SCH (12:11)
[2017-06-06] MEDS ORDERED: AMINO ACID 10% IV SCH (17:00)
[2017-06-06] MEDS ORDERED: FAT EMULSIONS IV SCH (17:00)
[2017-06-06] MEDS ORDERED: FILTER, DISP 1.2 MICRON FOR TPN/PVN IV PRN (17:00)
[2017-06-06] MEDS ORDERED: DEXTROSE 70% IV SCH (17:00)
[2017-06-06] MEDS ORDERED: [UNRECOGNIZED DRUG - OTHER] IV SCH (17:00)
[2017-06-07] MEDS: ACETYLCYSTEINE 20%, 4ML PO SCH ×2 (00:44→12:14)
[2017-06-07] MEDS: LINEZOLID PMX 600MG/300ML 300 ML IV SCH ×2 (00:44→11:30)
[2017-06-07] MEDS: FENTANYL PF 100 MCG/2ML IVPush PRN ×5 (01:17→22:20)
[2017-06-07] MEDS: ONDANSETRON 2MG/ML, 2ML IVPush PRN ×2 (02:56→07:46)
[2017-06-07] MEDS: METOCLOPRAMIDE 5 MG/ML, 2ML IV SCH ×4 (02:59→22:06)
[2017-06-07 04:48] LABS: HEMATOCRIT 26.8 % (34.6-47.8); HEMOGLOBIN 8.9 g/dL (11.7-16.4); WHITE BLOOD COUNT 21.6 x10^3/uL (3.4-10)
[2017-06-07 04:52] LABS: BLOOD UREA NITROGEN 8 mg/dL (7-18)
[2017-06-07] MEDS ORDERED: OMNIPAQUE 350 MG/ML, 100ML BOTTLE ONE (05:36)
[2017-06-07] MEDS: INSULIN REGULAR 100 UNITS/ML, 3ML VIAL SQ-INSULIN SCH (06:00)
[2017-06-07] MEDS: PANTOPRAZOLE 40 MG IV IVPush SCH (08:11)
[2017-06-07] MEDS: PROMETHAZINE 25 MG/ML, 1ML IM PRN (11:26)
[2017-06-07] MEDS ORDERED: MIDAZOLAM 1 MG/ML, 5ML ONE (14:03)
[2017-06-07] MEDS ORDERED: FENTANYL PF 100 MCG/2ML ONE (14:03)
[2017-06-07] MEDS ORDERED: FLUMAZENIL 0.1 MG/1 ML, 5ML ONE (14:04)
[2017-06-07] MEDS ORDERED: NALOXONE 1 MG/ML, 2ML ONE (14:04)
[2017-06-07] MEDS ORDERED: LIDOCAINE 1%, 20ML ONE (14:20)
[2017-06-07 15:58] VITALS: BP 136/84
[2017-06-07] MEDS: LORazepam 2 MG/ML, 1ML IVPush PRN (16:24)
[2017-06-07] MEDS ORDERED: AMINO ACID 10% IV SCH (17:00)
[2017-06-07] MEDS ORDERED: FILTER, DISP 1.2 MICRON FOR TPN/PVN IV PRN (17:00)
[2017-06-07] MEDS ORDERED: FAT EMULSIONS IV SCH (17:00)
[2017-06-07] MEDS ORDERED: [UNRECOGNIZED DRUG - OTHER] IV SCH (17:00)
[2017-06-07] MEDS ORDERED: DEXTROSE 70% IV SCH (17:00)
[2017-06-07 19:56] VITALS: BP 144/94
[2017-06-07 23:51] VITALS: BP 147/93
[2017-06-08] MEDS: LINEZOLID PMX 600MG/300ML 300 ML IV SCH ×2 (00:23→12:23)
[2017-06-08] MEDS: ACETYLCYSTEINE 20%, 4ML PO SCH (00:23)
[2017-06-08] MEDS: FENTANYL PF 100 MCG/2ML IVPush PRN ×7 (00:35→23:23)
[2017-06-08] MEDS: LORazepam 2 MG/ML, 1ML IVPush PRN ×2 (01:48→12:23)
[2017-06-08] MEDS: METOCLOPRAMIDE 5 MG/ML, 2ML IV SCH ×4 (03:10→21:09)
[2017-06-08 05:00] VITALS: BP 140/92
[2017-06-08 05:54] LABS: HEMOGLOBIN 9.1 g/dL (11.7-16.4); WHITE BLOOD COUNT 17.5 x10^3/uL (3.4-10)
[2017-06-08 06:12] LABS: BLOOD UREA NITROGEN 11 mg/dL (7-18)
[2017-06-08 07:02] VITALS: BP 135/91
[2017-06-08] MEDS: PANTOPRAZOLE 40 MG IV IVPush SCH (08:38)
[2017-06-08] MEDS: METHYLNALTREXONE 12 MG/0.6 ML SQ SCH (08:40)
[2017-06-08] MEDS: INSULIN REGULAR 100 UNITS/ML, 3ML VIAL SQ-INSULIN SCH (09:56)
[2017-06-08 13:39] VITALS: BP 145/97
[2017-06-08] MEDS: ONDANSETRON 2MG/ML, 2ML IVPush PRN (14:41)
[2017-06-08] MEDS: MICAFUNGIN 100 MG in SODIUM CHLORIDE 0.9% 100 ML IV SCH (15:41)
[2017-06-08] MEDS ORDERED: [UNRECOGNIZED DRUG - OTHER] IV SCH (17:00)
[2017-06-08] MEDS ORDERED: FAT EMULSIONS IV SCH (17:00)
[2017-06-08] MEDS ORDERED: DEXTROSE 70% IV SCH (17:00)
[2017-06-08] MEDS ORDERED: AMINO ACID 10% IV SCH (17:00)
[2017-06-08] MEDS: FILTER, DISP 1.2 MICRON FOR TPN/PVN IV PRN (17:17)
[2017-06-08] MEDS: SCOPOLAMINE PATCH, 1.5MG PATCH.TD72 TD SCH (17:18)
[2017-06-08] MEDS: FENTANYL 75 MCG PATCH TD SCH (17:18)
[2017-06-08] MEDS: FENTANYL REMOVE PATCH NOTE XX SCH (17:18)
[2017-06-08 19:09] VITALS: BP 142/105
[2017-06-08] MEDS: PROMETHAZINE 25 MG/ML, 1ML IM PRN (19:21)
[2017-06-08 19:27] VITALS: BP 142/96
[2017-06-09] MEDS: LORazepam 2 MG/ML, 1ML IVPush PRN (00:28)
[2017-06-09] MEDS: LINEZOLID PMX 600MG/300ML 300 ML IV SCH ×2 (00:28→12:47)
[2017-06-09 00:45] VITALS: BP 140/94
[2017-06-09] MEDS: METOCLOPRAMIDE 5 MG/ML, 2ML IV SCH ×4 (03:26→21:32)
[2017-06-09] MEDS: FENTANYL PF 100 MCG/2ML IVPush PRN ×6 (03:32→19:55)
[2017-06-09] MEDS: ONDANSETRON 2MG/ML, 2ML IVPush PRN ×3 (05:09→21:31)
[2017-06-09 05:45] LABS: HEMATOCRIT 28.8 % (34.6-47.8); HEMOGLOBIN 9.3 g/dL (11.7-16.4); WHITE BLOOD COUNT 16.2 x10^3/uL (3.4-10)
[2017-06-09 06:08] LABS: BLOOD UREA NITROGEN 13 mg/dL (7-18)
[2017-06-09 07:04] VITALS: BP 141/91
[2017-06-09] MEDS: PANTOPRAZOLE 40 MG IV IVPush SCH (08:11)
[2017-06-09] MEDS: INSULIN REGULAR 100 UNITS/ML, 3ML VIAL SQ-INSULIN SCH (08:26)
[2017-06-09 12:49] VITALS: BP 145/94
[2017-06-09] MEDS: MICAFUNGIN 100 MG in SODIUM CHLORIDE 0.9% 100 ML IV SCH (15:47)
[2017-06-09] MEDS ORDERED: AMINO ACID 10% IV SCH (17:00)
[2017-06-09] MEDS ORDERED: [UNRECOGNIZED DRUG - OTHER] IV SCH (17:00)
[2017-06-09] MEDS ORDERED: DEXTROSE 70% IV SCH (17:00)
[2017-06-09] MEDS ORDERED: FAT EMULSIONS IV SCH (17:00)
[2017-06-09] MEDS: FILTER, DISP 1.2 MICRON FOR TPN/PVN IV PRN (18:08)
[2017-06-09 18:53] VITALS: BP 147/93
[2017-06-10] MEDS: FENTANYL PF 100 MCG/2ML IVPush PRN ×7 (00:05→20:27)
[2017-06-10 00:57] VITALS: BP 143/90
[2017-06-10] MEDS: LORazepam 2 MG/ML, 1ML IVPush PRN ×2 (01:51→16:03)
[2017-06-10] MEDS: METOCLOPRAMIDE 5 MG/ML, 2ML IV SCH ×4 (03:33→21:15)
[2017-06-10] MEDS: ONDANSETRON 2MG/ML, 2ML IVPush PRN ×3 (05:59→18:39)
[2017-06-10 06:15] LABS: HEMATOCRIT 29.6 % (34.6-47.8); HEMOGLOBIN 9.6 g/dL (11.7-16.4); WHITE BLOOD COUNT 15.7 x10^3/uL (3.4-10)
[2017-06-10 06:24] LABS: BLOOD UREA NITROGEN 12 mg/dL (7-18)
[2017-06-10 07:28] VITALS: BP_SYST 139; BP_SYST 144; BP_DIAS 94
[2017-06-10] MEDS: PANTOPRAZOLE 40 MG IV IVPush SCH (08:53)
[2017-06-10] MEDS: METHYLNALTREXONE 12 MG/0.6 ML SQ SCH (08:57)
[2017-06-10] MEDS: INSULIN REGULAR 100 UNITS/ML, 3ML VIAL SQ-INSULIN SCH (09:12)
[2017-06-10] MEDS: LINEZOLID PMX 600MG/300ML 300 ML IV SCH ×2 (11:52)
[2017-06-10 14:41] VITALS: BP 152/102
[2017-06-10] MEDS: MICAFUNGIN 100 MG in SODIUM CHLORIDE 0.9% 100 ML IV SCH (14:44)
[2017-06-10] MEDS: ENALAPRILAT 1.25 MG/ML, 2ML IVPush PRN (15:04)
[2017-06-10] MEDS ORDERED: [UNRECOGNIZED DRUG - OTHER] IV SCH (17:00)
[2017-06-10] MEDS ORDERED: AMINO ACID 10% IV SCH (17:00)
[2017-06-10] MEDS ORDERED: DEXTROSE 70% IV SCH (17:00)
[2017-06-10] MEDS ORDERED: FAT EMULSIONS IV SCH (17:00)
[2017-06-10] MEDS: FILTER, DISP 1.2 MICRON FOR TPN/PVN IV PRN (17:17)
[2017-06-10 17:52] VITALS: BP 141/93
[2017-06-10 18:32] VITALS: BP 143/95
[2017-06-10] MEDS ORDERED: DEXTROSE 10% 500 ML IV PRN (21:00)
[2017-06-10] MEDS ORDERED: DEXTROSE 50%, 50ML SYRINGE IVPush PRN (21:00)
[2017-06-10] MEDS ORDERED: PHARMACY MAY ADJ FOR RENAL FX MC SCH (21:00)
[2017-06-10] MEDS ORDERED: TPN PER PHARMACY MC PRN (21:00)
[2017-06-10] MEDS ORDERED: LACTULOSE 20 GM/30 ML UDC NG PRN (21:00)
[2017-06-11 00:43] VITALS: BP 145/99
[2017-06-11] MEDS: LINEZOLID PMX 600MG/300ML 300 ML IV SCH ×2 (00:48→13:09)
[2017-06-11] MEDS: ONDANSETRON 2MG/ML, 2ML IVPush PRN ×3 (00:50→21:16)
[2017-06-11] MEDS: FENTANYL PF 100 MCG/2ML IVPush PRN ×8 (01:14→21:52)
[2017-06-11] MEDS: METOCLOPRAMIDE 5 MG/ML, 2ML IV SCH ×4 (03:39→21:16)
[2017-06-11 05:51] LABS: HEMATOCRIT 30.8 % (34.6-47.8); HEMOGLOBIN 9.9 g/dL (11.7-16.4); WHITE BLOOD COUNT 15.9 x10^3/uL (3.4-10)
[2017-06-11 05:54] LABS: BLOOD UREA NITROGEN 12 mg/dL (7-18)
[2017-06-11 06:03] LABS: ASPARTATE AMINO TRANSFERASE 106 U/L (15-37)
[2017-06-11 07:59] VITALS: BP 157/105
[2017-06-11] MEDS: PANTOPRAZOLE 40 MG IV IVPush SCH (08:45)
[2017-06-11] MEDS: INSULIN REGULAR 100 UNITS/ML, 3ML VIAL SQ-INSULIN SCH (10:28)
[2017-06-11 12:58] VITALS: BP 148/98
[2017-06-11] MEDS: MICAFUNGIN 100 MG in SODIUM CHLORIDE 0.9% 100 ML IV SCH (15:57)
[2017-06-11] MEDS: FENTANYL REMOVE PATCH NOTE XX SCH (16:58)
[2017-06-11] MEDS ORDERED: DEXTROSE 70% IV SCH (17:00)
[2017-06-11] MEDS ORDERED: AMINO ACID 10% IV SCH (17:00)
[2017-06-11] MEDS ORDERED: [UNRECOGNIZED DRUG - OTHER] IV SCH (17:00)
[2017-06-11] MEDS ORDERED: FAT EMULSIONS IV SCH (17:00)
[2017-06-11] MEDS: FENTANYL 75 MCG PATCH TD SCH (17:10)
[2017-06-11] MEDS: SCOPOLAMINE PATCH, 1.5MG PATCH.TD72 TD SCH (17:13)
[2017-06-11 18:50] VITALS: BP 143/103
[2017-06-11 20:40] VITALS: BP 150/98
[2017-06-12] MEDS: LORazepam 2 MG/ML, 1ML IVPush PRN (00:18)
[2017-06-12] MEDS: LINEZOLID PMX 600MG/300ML 300 ML IV SCH ×3 (00:28→23:54)
[2017-06-12 02:30] VITALS: BP 155/106
[2017-06-12] MEDS: ENALAPRILAT 1.25 MG/ML, 2ML IVPush PRN (02:43)
[2017-06-12] MEDS: METOCLOPRAMIDE 5 MG/ML, 2ML IV SCH ×4 (03:37→21:33)
[2017-06-12] MEDS: FENTANYL PF 100 MCG/2ML IVPush PRN ×8 (03:46→23:54)
[2017-06-12 05:54] LABS: HEMOGLOBIN 10.5 g/dL (11.7-16.4); WHITE BLOOD COUNT 15.8 x10^3/uL (3.4-10)
[2017-06-12 06:02] LABS: BLOOD UREA NITROGEN 12 mg/dL (7-18)
[2017-06-12 06:05] LABS: ASPARTATE AMINO TRANSFERASE 153 U/L (15-37)
[2017-06-12 07:21] VITALS: BP 149/96
[2017-06-12] MEDS: PANTOPRAZOLE 40 MG IV IVPush SCH (09:01)
[2017-06-12] MEDS: INSULIN REGULAR 100 UNITS/ML, 3ML VIAL SQ-INSULIN SCH (09:14)
[2017-06-12] MEDS: METHYLNALTREXONE 12 MG/0.6 ML SQ SCH (11:41)
[2017-06-12 13:15] VITALS: BP 154/107
[2017-06-12] MEDS: ONDANSETRON 2MG/ML, 2ML IVPush PRN (15:14)
[2017-06-12] MEDS: MICAFUNGIN 100 MG in SODIUM CHLORIDE 0.9% 100 ML IV SCH (15:52)
[2017-06-12] MEDS ORDERED: FAT EMULSIONS IV SCH (17:00)
[2017-06-12] MEDS ORDERED: AMINO ACID 10% IV SCH (17:00)
[2017-06-12] MEDS ORDERED: DEXTROSE 70% IV SCH (17:00)
[2017-06-12] MEDS ORDERED: [UNRECOGNIZED DRUG - OTHER] IV SCH (17:00)
[2017-06-12 18:57] VITALS: BP 158/99
[2017-06-12] MEDS: FILTER, DISP 1.2 MICRON FOR TPN/PVN IV PRN (21:32)
[2017-06-13 01:33] VITALS: BP 148/97
[2017-06-13] MEDS: LORazepam 2 MG/ML, 1ML IVPush PRN ×2 (01:49→22:57)
[2017-06-13] MEDS: METOCLOPRAMIDE 5 MG/ML, 2ML IV SCH ×4 (03:56→20:36)
[2017-06-13] MEDS: FENTANYL PF 100 MCG/2ML IVPush PRN ×6 (04:02→20:36)
[2017-06-13] MEDS: ONDANSETRON 2MG/ML, 2ML IVPush PRN ×2 (04:08→15:25)
[2017-06-13 06:39] LABS: HEMOGLOBIN 10.3 g/dL (11.7-16.4); WHITE BLOOD COUNT 12.5 x10^3/uL (3.4-10)
[2017-06-13 06:48] LABS: BLOOD UREA NITROGEN 10 mg/dL (7-18)
[2017-06-13 07:16] VITALS: BP 147/102
[2017-06-13] MEDS: INSULIN REGULAR 100 UNITS/ML, 3ML VIAL SQ-INSULIN SCH (09:04)
[2017-06-13] MEDS: PANTOPRAZOLE 40 MG IV IVPush SCH (09:05)
[2017-06-13] MEDS: LINEZOLID PMX 600MG/300ML 300 ML IV SCH ×2 (12:45→22:59)
[2017-06-13 14:15] VITALS: BP 153/103
[2017-06-13] MEDS: MICAFUNGIN 100 MG in SODIUM CHLORIDE 0.9% 100 ML IV SCH (16:23)
[2017-06-13] MEDS ORDERED: FILTER, DISP 1.2 MICRON FOR TPN/PVN IV PRN (17:00)
[2017-06-13] MEDS ORDERED: DEXTROSE 70% IV SCH (17:00)
[2017-06-13] MEDS ORDERED: [UNRECOGNIZED DRUG - OTHER] IV SCH (17:00)
[2017-06-13] MEDS ORDERED: FAT EMULSIONS IV SCH (17:00)
[2017-06-13] MEDS ORDERED: AMINO ACID 10% IV SCH (17:00)
[2017-06-13 19:18] VITALS: BP 149/108
[2017-06-14 02:08] VITALS: BP 150/107
[2017-06-14] MEDS: METOCLOPRAMIDE 5 MG/ML, 2ML IV SCH ×4 (02:19→20:27)
[2017-06-14] MEDS: ENALAPRILAT 1.25 MG/ML, 2ML IVPush PRN (02:19)
[2017-06-14] MEDS: FENTANYL PF 100 MCG/2ML IVPush PRN ×8 (02:20→20:27)
[2017-06-14 04:36] LABS: HEMATOCRIT 32.4 % (34.6-47.8); HEMOGLOBIN 10.4 g/dL (11.7-16.4); WHITE BLOOD COUNT 13.7 x10^3/uL (3.4-10)
[2017-06-14 04:40] LABS: ASPARTATE AMINO TRANSFERASE 108 U/L (15-37); BLOOD UREA NITROGEN 10 mg/dL (7-18)
[2017-06-14] MEDS: ONDANSETRON 2MG/ML, 2ML IVPush PRN ×2 (06:15→17:58)
[2017-06-14 06:33] VITALS: BP 145/95
[2017-06-14] MEDS: PANTOPRAZOLE 40 MG IV IVPush SCH (08:16)
[2017-06-14] MEDS: INSULIN REGULAR 100 UNITS/ML, 3ML VIAL SQ-INSULIN SCH (08:20)
[2017-06-14] MEDS: METHYLNALTREXONE 12 MG/0.6 ML SQ SCH (08:35)
[2017-06-14] MEDS: LINEZOLID PMX 600MG/300ML 300 ML IV SCH (11:51)
[2017-06-14 12:59] VITALS: BP 152/99
[2017-06-14] MEDS: MICAFUNGIN 100 MG in SODIUM CHLORIDE 0.9% 100 ML IV SCH (15:55)
[2017-06-14] MEDS ORDERED: FAT EMULSIONS IV SCH (17:00)
[2017-06-14] MEDS ORDERED: [UNRECOGNIZED DRUG - OTHER] IV SCH (17:00)
[2017-06-14] MEDS ORDERED: DEXTROSE 70% IV SCH (17:00)
[2017-06-14] MEDS ORDERED: FILTER, DISP 1.2 MICRON FOR TPN/PVN IV PRN (17:00)
[2017-06-14] MEDS ORDERED: AMINO ACID 10% IV SCH (17:00)
[2017-06-14] MEDS: FENTANYL REMOVE PATCH NOTE XX SCH (17:52)
[2017-06-14] MEDS: FENTANYL 75 MCG PATCH TD SCH (17:52)
[2017-06-14] MEDS: SCOPOLAMINE PATCH, 1.5MG PATCH.TD72 TD SCH (17:58)
[2017-06-14 20:00] VITALS: BP 155/100
[2017-06-15] MEDS: LINEZOLID PMX 600MG/300ML 300 ML IV SCH ×2 (00:47→12:03)
[2017-06-15] MEDS: LORazepam 2 MG/ML, 1ML IVPush PRN (01:15)
[2017-06-15 02:00] VITALS: BP 142/89
[2017-06-15] MEDS: METOCLOPRAMIDE 5 MG/ML, 2ML IV SCH ×4 (02:50→20:41)
[2017-06-15] MEDS: FENTANYL PF 100 MCG/2ML IVPush PRN ×8 (03:01→22:54)
[2017-06-15 06:14] LABS: HEMATOCRIT 32.6 % (34.6-47.8); HEMOGLOBIN 10.5 g/dL (11.7-16.4); WHITE BLOOD COUNT 12.1 x10^3/uL (3.4-10)
[2017-06-15 06:39] LABS: ASPARTATE AMINO TRANSFERASE 106 U/L (15-37); BLOOD UREA NITROGEN 10 mg/dL (7-18)
[2017-06-15] MEDS: PANTOPRAZOLE 40 MG IV IVPush SCH (08:46)
[2017-06-15] MEDS: INSULIN REGULAR 100 UNITS/ML, 3ML VIAL SQ-INSULIN SCH (08:48)
[2017-06-15 10:11] VITALS: BP 142/92
[2017-06-15 14:00] VITALS: BP 147/84
[2017-06-15] MEDS: ONDANSETRON 2MG/ML, 2ML IVPush PRN (14:04)
[2017-06-15] MEDS: MICAFUNGIN 100 MG in SODIUM CHLORIDE 0.9% 100 ML IV SCH (15:51)
[2017-06-15] MEDS: FILTER, DISP 1.2 MICRON FOR TPN/PVN IV PRN (16:54)
[2017-06-15] MEDS ORDERED: DEXTROSE 70% IV SCH (17:00)
[2017-06-15] MEDS ORDERED: FAT EMULSIONS IV SCH (17:00)
[2017-06-15] MEDS ORDERED: AMINO ACID 10% IV SCH (17:00)
[2017-06-15] MEDS ORDERED: [UNRECOGNIZED DRUG - OTHER] IV SCH (17:00)
[2017-06-15 19:32] VITALS: BP 154/100
[2017-06-16] MEDS: LINEZOLID PMX 600MG/300ML 300 ML IV SCH ×2 (00:04→11:55)
[2017-06-16 01:08] VITALS: BP 155/108
[2017-06-16] MEDS: LORazepam 2 MG/ML, 1ML IVPush PRN (01:37)
[2017-06-16] MEDS: FENTANYL PF 100 MCG/2ML IVPush PRN ×9 (03:42→22:38)
[2017-06-16] MEDS: METOCLOPRAMIDE 5 MG/ML, 2ML IV SCH ×4 (03:42→20:05)
[2017-06-16 04:57] LABS: HEMOGLOBIN 10.7 g/dL (11.7-16.4); WHITE BLOOD COUNT 13.7 x10^3/uL (3.4-10)
[2017-06-16 07:50] VITALS: BP 136/93
[2017-06-16] MEDS: PANTOPRAZOLE 40 MG IV IVPush SCH (08:12)
[2017-06-16] MEDS: METHYLNALTREXONE 12 MG/0.6 ML SQ SCH (08:13)
[2017-06-16] MEDS: INSULIN REGULAR 100 UNITS/ML, 3ML VIAL SQ-INSULIN SCH (08:22)
[2017-06-16] MEDS: ONDANSETRON 2MG/ML, 2ML IVPush PRN ×2 (09:18→17:08)
[2017-06-16 14:41] VITALS: BP 144/96
[2017-06-16] MEDS: MICAFUNGIN 100 MG in SODIUM CHLORIDE 0.9% 100 ML IV SCH (15:47)
[2017-06-16] MEDS: FILTER, DISP 1.2 MICRON FOR TPN/PVN IV PRN (16:54)
[2017-06-16] MEDS ORDERED: AMINO ACID 10% IV SCH (17:00)
[2017-06-16] MEDS ORDERED: DEXTROSE 70% IV SCH (17:00)
[2017-06-16] MEDS ORDERED: FAT EMULSIONS IV SCH (17:00)
[2017-06-16] MEDS ORDERED: [UNRECOGNIZED DRUG - OTHER] IV SCH (17:00)
[2017-06-16 18:45] VITALS: BP 153/104
[2017-06-17] MEDS: LINEZOLID PMX 600MG/300ML 300 ML IV SCH ×2 (00:13→12:11)
[2017-06-17] MEDS: FENTANYL PF 100 MCG/2ML IVPush PRN ×10 (00:44→22:28)
[2017-06-17 01:49] VITALS: BP 151/102
[2017-06-17] MEDS: LORazepam 2 MG/ML, 1ML IVPush PRN (02:05)
[2017-06-17] MEDS: METOCLOPRAMIDE 5 MG/ML, 2ML IV SCH ×4 (03:20→22:27)
[2017-06-17 04:45] LABS: HEMATOCRIT 33.3 % (34.6-47.8); HEMOGLOBIN 10.8 g/dL (11.7-16.4); WHITE BLOOD COUNT 11.9 x10^3/uL (3.4-10)
[2017-06-17 04:59] LABS: BLOOD UREA NITROGEN 11 mg/dL (7-18)
[2017-06-17 08:22] VITALS: BP 152/107
[2017-06-17] MEDS: PANTOPRAZOLE 40 MG IV IVPush SCH (08:33)
[2017-06-17] MEDS: ONDANSETRON 2MG/ML, 2ML IVPush PRN ×2 (09:46→15:58)
[2017-06-17] MEDS: INSULIN REGULAR 100 UNITS/ML, 3ML VIAL SQ-INSULIN SCH (09:50)
[2017-06-17 15:45] VITALS: BP 156/109
[2017-06-17] MEDS: MICAFUNGIN 100 MG in SODIUM CHLORIDE 0.9% 100 ML IV SCH (15:58)
[2017-06-17] MEDS ORDERED: AMINO ACID 10% IV SCH (17:00)
[2017-06-17] MEDS ORDERED: DEXTROSE 70% IV SCH (17:00)
[2017-06-17] MEDS ORDERED: FAT EMULSIONS IV SCH (17:00)
[2017-06-17] MEDS ORDERED: [UNRECOGNIZED DRUG - OTHER] IV SCH (17:00)
[2017-06-17] MEDS ORDERED: FILTER, DISP 1.2 MICRON FOR TPN/PVN IV PRN (17:00)
[2017-06-17] MEDS: FENTANYL REMOVE PATCH NOTE XX SCH ×2 (18:00)
[2017-06-17] MEDS: SCOPOLAMINE PATCH, 1.5MG PATCH.TD72 TD SCH (18:00)
[2017-06-17] MEDS: FENTANYL 75 MCG PATCH TD SCH (18:00)
[2017-06-17] MEDS ORDERED: DEXTROSE 10% 500 ML IV PRN (19:30)
[2017-06-17] MEDS ORDERED: LACTULOSE 20 GM/30 ML UDC NG PRN (19:30)
[2017-06-17] MEDS ORDERED: DEXTROSE 50%, 50ML SYRINGE IVPush PRN (19:30)
[2017-06-17] MEDS ORDERED: TPN PER PHARMACY MC PRN (19:30)
[2017-06-17] MEDS ORDERED: PHARMACY MAY ADJ FOR RENAL FX MC SCH (19:30)
[2017-06-17 20:18] VITALS: BP 157/100
[2017-06-18] MEDS: ONDANSETRON 2MG/ML, 2ML IVPush PRN ×3 (00:05→21:59)
[2017-06-18] MEDS: LINEZOLID PMX 600MG/300ML 300 ML IV SCH ×2 (00:05→12:17)
[2017-06-18] MEDS: FENTANYL PF 100 MCG/2ML IVPush PRN ×11 (00:16→22:39)
[2017-06-18 02:31] VITALS: BP 160/106
[2017-06-18] MEDS: METOCLOPRAMIDE 5 MG/ML, 2ML IV SCH ×4 (04:26→21:59)
[2017-06-18 04:56] LABS: HEMOGLOBIN 10.9 g/dL (11.7-16.4); WHITE BLOOD COUNT 11.2 x10^3/uL (3.4-10)
[2017-06-18 05:24] LABS: ASPARTATE AMINO TRANSFERASE 100 U/L (15-37); BLOOD UREA NITROGEN 10 mg/dL (7-18)
[2017-06-18 06:34] VITALS: BP 155/107
[2017-06-18] MEDS: PANTOPRAZOLE 40 MG IV IVPush SCH (08:30)
[2017-06-18] MEDS: METHYLNALTREXONE 12 MG/0.6 ML SQ SCH (08:30)
[2017-06-18] MEDS: ENALAPRILAT 1.25 MG/ML, 2ML IVPush PRN (08:30)
[2017-06-18] MEDS ORDERED: FILTER, DISP 1.2 MICRON FOR TPN/PVN IV PRN (09:00)
[2017-06-18] MEDS: INSULIN REGULAR 100 UNITS/ML, 3ML VIAL SQ-INSULIN SCH (09:00)
[2017-06-18] MEDS: PROMETHAZINE 25 MG/ML, 1ML IM PRN (09:58)
[2017-06-18] MEDS ORDERED: OMNIPAQUE 350 MG/ML, 100ML BOTTLE ONE (11:39)
[2017-06-18 13:53] VITALS: BP 149/105
[2017-06-18] MEDS: MICAFUNGIN 100 MG in SODIUM CHLORIDE 0.9% 100 ML IV SCH (16:06)
[2017-06-18] MEDS ORDERED: [UNRECOGNIZED DRUG - OTHER] IV SCH (17:00)
[2017-06-18] MEDS ORDERED: FAT EMULSIONS IV SCH (17:00)
[2017-06-18] MEDS ORDERED: DEXTROSE 70% IV SCH (17:00)
[2017-06-18] MEDS ORDERED: AMINO ACID 10% IV SCH (17:00)
[2017-06-18 19:43] VITALS: BP 168/110
[2017-06-19] MEDS: LORazepam 2 MG/ML, 1ML IVPush PRN (00:08)
[2017-06-19] MEDS: LINEZOLID PMX 600MG/300ML 300 ML IV SCH ×2 (00:08→11:53)
[2017-06-19] MEDS: ONDANSETRON 2MG/ML, 2ML IVPush PRN ×2 (03:37→14:52)
[2017-06-19] MEDS: FENTANYL PF 100 MCG/2ML IVPush PRN ×8 (03:37→22:20)
[2017-06-19] MEDS: METOCLOPRAMIDE 5 MG/ML, 2ML IV SCH ×4 (03:37→22:15)
[2017-06-19 03:49] VITALS: BP 144/95
[2017-06-19 06:40] LABS: HEMOGLOBIN 11.1 g/dL (11.7-16.4); WHITE BLOOD COUNT 9.6 x10^3/uL (3.4-10)
[2017-06-19 07:26] VITALS: BP 157/106
[2017-06-19] MEDS: PANTOPRAZOLE 40 MG IV IVPush SCH (08:52)
[2017-06-19] MEDS: INSULIN REGULAR 100 UNITS/ML, 3ML VIAL SQ-INSULIN SCH (09:00)
[2017-06-19 14:47] VITALS: BP 156/106
[2017-06-19] MEDS: MICAFUNGIN 100 MG in SODIUM CHLORIDE 0.9% 100 ML IV SCH (15:45)
[2017-06-19] MEDS ORDERED: FILTER, DISP 1.2 MICRON FOR TPN/PVN IV PRN (16:00)
[2017-06-19] MEDS ORDERED: FAT EMULSIONS IV SCH (17:00)
[2017-06-19] MEDS ORDERED: [UNRECOGNIZED DRUG - OTHER] IV SCH (17:00)
[2017-06-19] MEDS ORDERED: AMINO ACID 10% IV SCH (17:00)
[2017-06-19] MEDS ORDERED: DEXTROSE 70% IV SCH (17:00)
[2017-06-19 19:47] VITALS: BP 171/113
[2017-06-20] MEDS: FENTANYL PF 100 MCG/2ML IVPush PRN ×11 (00:01→22:17)
[2017-06-20] MEDS: LINEZOLID PMX 600MG/300ML 300 ML IV SCH ×2 (00:02→12:10)
[2017-06-20 01:27] VITALS: BP 159/116
[2017-06-20] MEDS: ONDANSETRON 2MG/ML, 2ML IVPush PRN ×2 (02:06→17:23)
[2017-06-20] MEDS: LORazepam 2 MG/ML, 1ML IVPush PRN ×2 (03:35→14:07)
[2017-06-20] MEDS: METOCLOPRAMIDE 5 MG/ML, 2ML IV SCH ×4 (04:27→22:27)
[2017-06-20 05:31] LABS: HEMATOCRIT 34.8 % (34.6-47.8); HEMOGLOBIN 11.4 g/dL (11.7-16.4); WHITE BLOOD COUNT 9.1 x10^3/uL (3.4-10)
[2017-06-20 05:43] LABS: BLOOD UREA NITROGEN 10 mg/dL (7-18)
[2017-06-20] MEDS: ENALAPRILAT 1.25 MG/ML, 2ML IVPush PRN (05:47)
[2017-06-20] MEDS: PANTOPRAZOLE 40 MG IV IVPush SCH (07:19)
[2017-06-20 07:44] VITALS: BP 157/103
[2017-06-20] MEDS: METHYLNALTREXONE 12 MG/0.6 ML SQ SCH (08:51)
[2017-06-20] MEDS: INSULIN REGULAR 100 UNITS/ML, 3ML VIAL SQ-INSULIN SCH (09:01)
[2017-06-20] MEDS ORDERED: MIDAZOLAM 1 MG/ML, 5ML ONE (09:16)
[2017-06-20] MEDS ORDERED: FENTANYL PF 100 MCG/2ML ONE (09:16)
[2017-06-20] MEDS ORDERED: LIDOCAINE 1%, 20ML ONE (09:25)
[2017-06-20 10:22] VITALS: BP 144/91
[2017-06-20 12:00] VITALS: BP 149/103
[2017-06-20] MEDS ORDERED: DEXTROSE 70% IV SCH (17:00)
[2017-06-20] MEDS ORDERED: [UNRECOGNIZED DRUG - OTHER] IV SCH (17:00)
[2017-06-20] MEDS ORDERED: FILTER, DISP 1.2 MICRON FOR TPN/PVN IV PRN (17:00)
[2017-06-20] MEDS ORDERED: FAT EMULSIONS IV SCH (17:00)
[2017-06-20] MEDS ORDERED: AMINO ACID 10% IV SCH (17:00)
[2017-06-20] MEDS: MICAFUNGIN 100 MG in SODIUM CHLORIDE 0.9% 100 ML IV SCH (17:16)
[2017-06-20] MEDS: FENTANYL 75 MCG PATCH TD SCH (18:11)
[2017-06-20] MEDS: SCOPOLAMINE PATCH, 1.5MG PATCH.TD72 TD SCH (18:12)
[2017-06-20] MEDS: FENTANYL REMOVE PATCH NOTE XX SCH (18:12)
[2017-06-20 20:45] VITALS: BP 164/99
[2017-06-21] MEDS: FENTANYL PF 100 MCG/2ML IVPush PRN ×11 (00:16→22:37)
[2017-06-21] MEDS: LINEZOLID PMX 600MG/300ML 300 ML IV SCH ×2 (00:16→11:48)
[2017-06-21 01:01] VITALS: BP 156/97
[2017-06-21] MEDS: ONDANSETRON 2MG/ML, 2ML IVPush PRN ×3 (02:45→16:31)
[2017-06-21] MEDS: METOCLOPRAMIDE 5 MG/ML, 2ML IV SCH ×4 (04:30→22:37)
[2017-06-21 04:56] LABS: HEMATOCRIT 34.9 % (34.6-47.8); HEMOGLOBIN 11.5 g/dL (11.7-16.4); WHITE BLOOD COUNT 10.9 x10^3/uL (3.4-10)
[2017-06-21 05:52] LABS: ASPARTATE AMINO TRANSFERASE 107 U/L (15-37); BLOOD UREA NITROGEN 12 mg/dL (7-18)
[2017-06-21 07:15] VITALS: BP 151/108
[2017-06-21] MEDS: PANTOPRAZOLE 40 MG IV IVPush SCH (07:17)
[2017-06-21] MEDS: ENALAPRILAT 1.25 MG/ML, 2ML IVPush PRN (07:26)
[2017-06-21] MEDS: INSULIN REGULAR 100 UNITS/ML, 3ML VIAL SQ-INSULIN SCH (08:47)
[2017-06-21 09:47] VITALS: BP 158/90
[2017-06-21] MEDS ORDERED: FILTER, DISP 1.2 MICRON FOR TPN/PVN IV PRN (11:00)
[2017-06-21 12:44] VITALS: BP 156/103
[2017-06-21] MEDS: MICAFUNGIN 100 MG in SODIUM CHLORIDE 0.9% 100 ML IV SCH (16:22)
[2017-06-21] MEDS ORDERED: DEXTROSE 70% IV SCH (17:00)
[2017-06-21] MEDS ORDERED: AMINO ACID 10% IV SCH (17:00)
[2017-06-21] MEDS ORDERED: [UNRECOGNIZED DRUG - OTHER] IV SCH (17:00)
[2017-06-21] MEDS ORDERED: FAT EMULSIONS IV SCH (17:00)
[2017-06-21 19:11] VITALS: BP 158/94
[2017-06-22] VITALS (8 sets, daily range): BP systolic 143–174; BP diastolic 94–119
[2017-06-22] MEDS: FENTANYL PF 100 MCG/2ML IVPush PRN ×11 (00:47→23:32)
[2017-06-22] MEDS: LINEZOLID PMX 600MG/300ML 300 ML IV SCH ×3 (00:47→23:32)
[2017-06-22] MEDS: METOCLOPRAMIDE 5 MG/ML, 2ML IV SCH ×4 (03:59→21:27)
[2017-06-22 04:50] LABS: HEMATOCRIT 34.2 % (34.6-47.8); HEMOGLOBIN 11.2 g/dL (11.7-16.4); WHITE BLOOD COUNT 7.9 x10^3/uL (3.4-10)
[2017-06-22] MEDS: ENALAPRILAT 1.25 MG/ML, 2ML IVPush PRN ×3 (07:22→21:40)
[2017-06-22] MEDS: PANTOPRAZOLE 40 MG IV IVPush SCH (07:22)
[2017-06-22] MEDS: ONDANSETRON 2MG/ML, 2ML IVPush PRN (07:22)
[2017-06-22] MEDS: INSULIN REGULAR 100 UNITS/ML, 3ML VIAL SQ-INSULIN SCH (09:00)
[2017-06-22] MEDS: METHYLNALTREXONE 12 MG/0.6 ML SQ SCH (10:06)
[2017-06-22] MEDS: MICAFUNGIN 100 MG in SODIUM CHLORIDE 0.9% 100 ML IV SCH (17:00)
[2017-06-22] MEDS ORDERED: AMINO ACID 10% IV SCH (17:00)
[2017-06-22] MEDS ORDERED: FAT EMULSIONS IV SCH (17:00)
[2017-06-22] MEDS ORDERED: FILTER, DISP 1.2 MICRON FOR TPN/PVN IV PRN (17:00)
[2017-06-22] MEDS ORDERED: [UNRECOGNIZED DRUG - OTHER] IV SCH (17:00)
[2017-06-22] MEDS ORDERED: DEXTROSE 70% IV SCH (17:00)
[2017-06-23] VITALS (7 sets, daily range): BP systolic 142–176; BP diastolic 92–121
[2017-06-23] MEDS: FENTANYL PF 100 MCG/2ML IVPush PRN ×10 (01:31→21:29)
[2017-06-23] MEDS: ENALAPRILAT 1.25 MG/ML, 2ML IVPush PRN ×2 (02:05→21:29)
[2017-06-23] MEDS ORDERED: hydrALAzine 20 MG/ML, 1ML IV ONE (04:00)
[2017-06-23] MEDS: METOCLOPRAMIDE 5 MG/ML, 2ML IV SCH ×4 (04:27→21:29)
[2017-06-23 04:59] LABS: HEMOGLOBIN 11.9 g/dL (11.7-16.4); WHITE BLOOD COUNT 6.9 x10^3/uL (3.4-10)
[2017-06-23 05:06] LABS: BLOOD UREA NITROGEN 11 mg/dL (7-18)
[2017-06-23] MEDS: PANTOPRAZOLE 40 MG IV IVPush SCH (08:20)
[2017-06-23] MEDS: INSULIN REGULAR 100 UNITS/ML, 3ML VIAL SQ-INSULIN SCH (09:00)
[2017-06-23] MEDS ORDERED: AMLODIPINE 2.5 MG TABLET PO SCH (09:00)
[2017-06-23] MEDS: LINEZOLID PMX 600MG/300ML 300 ML IV SCH ×2 (11:34→23:40)
[2017-06-23] MEDS: MICAFUNGIN 100 MG in SODIUM CHLORIDE 0.9% 100 ML IV SCH (16:07)
[2017-06-23] MEDS ORDERED: AMINO ACID 10% IV SCH (17:00)
[2017-06-23] MEDS ORDERED: FAT EMULSIONS IV SCH (17:00)
[2017-06-23] MEDS ORDERED: [UNRECOGNIZED DRUG - OTHER] IV SCH (17:00)
[2017-06-23] MEDS ORDERED: DEXTROSE 70% IV SCH (17:00)
[2017-06-23] MEDS: HEPARIN 5,000 UNITS/ML, 1ML SQ SCH (18:00)
[2017-06-23] MEDS: SCOPOLAMINE PATCH, 1.5MG PATCH.TD72 TD SCH (18:00)
[2017-06-23] MEDS: FENTANYL 75 MCG PATCH TD SCH (18:11)
[2017-06-23] MEDS: FENTANYL REMOVE PATCH NOTE XX SCH (18:15)
[2017-06-23] MEDS: METOPROLOL TARTRATE 25 MG TABLET PO SCH (19:44)
[2017-06-23] MEDS ORDERED: AMLODIPINE 5 MG TABLET PO SCH (21:00)
[2017-06-23] MEDS: AMLODIPINE 5 MG TABLET PO SCH (21:28)
[2017-06-24] MEDS: ONDANSETRON 2MG/ML, 2ML IVPush PRN ×2 (02:14→15:58)
[2017-06-24] MEDS: HEPARIN 5,000 UNITS/ML, 1ML SQ SCH ×3 (02:14→18:00)
[2017-06-24 03:50] VITALS: BP 147/101
[2017-06-24] MEDS: FENTANYL PF 100 MCG/2ML IVPush PRN ×8 (04:28→21:16)
[2017-06-24] MEDS: METOCLOPRAMIDE 5 MG/ML, 2ML IV SCH ×4 (04:28→22:07)
[2017-06-24 05:02] LABS: HEMATOCRIT 37.1 % (34.6-47.8); HEMOGLOBIN 12.2 g/dL (11.7-16.4); WHITE BLOOD COUNT 7.1 x10^3/uL (3.4-10)
[2017-06-24] MEDS: METOPROLOL TARTRATE 25 MG TABLET PO SCH ×2 (05:05→18:11)
[2017-06-24 07:37] LABS: BLOOD UREA NITROGEN 12 mg/dL (7-18)
[2017-06-24 08:05] VITALS: BP 153/98
[2017-06-24] MEDS: INSULIN REGULAR 100 UNITS/ML, 3ML VIAL SQ-INSULIN SCH (08:19)
[2017-06-24] MEDS: AMLODIPINE 5 MG TABLET PO SCH ×2 (09:03→21:14)
[2017-06-24] MEDS: PANTOPRAZOLE 40 MG IV IVPush SCH (09:03)
[2017-06-24] MEDS: METHYLNALTREXONE 12 MG/0.6 ML SQ SCH (09:03)
[2017-06-24] MEDS: LINEZOLID PMX 600MG/300ML 300 ML IV SCH (11:47)
[2017-06-24 14:39] VITALS: BP 146/96
[2017-06-24] MEDS ORDERED: PROMETHAZINE 25 MG/ML, 1ML IM PRN (15:30)
[2017-06-24] MEDS ORDERED: DEXTROSE 50%, 50ML SYRINGE IVPush PRN (15:30)
[2017-06-24] MEDS ORDERED: ACETAMINOPHEN 325 MG TABLET PO PRN (15:30)
[2017-06-24] MEDS ORDERED: ACETAMINOPHEN 650 MG SUPP PR PRN (15:30)
[2017-06-24] MEDS ORDERED: ENALAPRILAT 1.25 MG/ML, 2ML IVPush PRN (15:30)
[2017-06-24] MEDS ORDERED: LACTULOSE 20 GM/30 ML UDC NG PRN (15:30)
[2017-06-24] MEDS: MICAFUNGIN 100 MG in SODIUM CHLORIDE 0.9% 100 ML IV SCH (15:59)
[2017-06-24] MEDS ORDERED: [UNRECOGNIZED DRUG - OTHER] IV SCH (17:00)
[2017-06-24] MEDS ORDERED: FAT EMULSIONS IV SCH (17:00)
[2017-06-24] MEDS ORDERED: DEXTROSE 70% IV SCH (17:00)
[2017-06-24] MEDS ORDERED: FILTER, DISP 1.2 MICRON FOR TPN/PVN IV PRN (17:00)
[2017-06-24] MEDS ORDERED: AMINO ACID 10% IV SCH (17:00)
[2017-06-24 19:50] VITALS: BP 148/101
[2017-06-25] MEDS: LINEZOLID PMX 600MG/300ML 300 ML IV SCH ×3 (00:30→23:35)
[2017-06-25] MEDS: HEPARIN 5,000 UNITS/ML, 1ML SQ SCH ×4 (00:30→23:35)
[2017-06-25] MEDS: FENTANYL PF 100 MCG/2ML IVPush PRN ×8 (00:39→23:30)
[2017-06-25 03:13] VITALS: BP 141/93
[2017-06-25] MEDS: METOCLOPRAMIDE 5 MG/ML, 2ML IV SCH ×4 (04:40→22:00)
[2017-06-25 05:12] LABS: HEMATOCRIT 35.7 % (34.6-47.8); HEMOGLOBIN 11.6 g/dL (11.7-16.4); WHITE BLOOD COUNT 6.4 x10^3/uL (3.4-10)
[2017-06-25] MEDS: METOPROLOL TARTRATE 25 MG TABLET PO SCH ×2 (05:53→16:57)
[2017-06-25 06:07] LABS: ASPARTATE AMINO TRANSFERASE 95 U/L (15-37); BLOOD UREA NITROGEN 14 mg/dL (7-18)
[2017-06-25 07:54] VITALS: BP 142/97
[2017-06-25] MEDS: INSULIN REGULAR 100 UNITS/ML, 3ML VIAL SQ-INSULIN SCH (08:23)
[2017-06-25] MEDS: PANTOPRAZOLE 40 MG IV IVPush SCH (08:36)
[2017-06-25] MEDS: AMLODIPINE 5 MG TABLET PO SCH ×2 (08:36→20:40)
[2017-06-25] MEDS: ONDANSETRON 2MG/ML, 2ML IVPush PRN ×2 (13:00→21:36)
[2017-06-25 15:15] VITALS: BP 139/92
[2017-06-25] MEDS: MICAFUNGIN 100 MG in SODIUM CHLORIDE 0.9% 100 ML IV SCH (16:08)
[2017-06-25] MEDS ORDERED: FAT EMULSIONS IV SCH (17:00)
[2017-06-25] MEDS ORDERED: [UNRECOGNIZED DRUG - OTHER] IV SCH (17:00)
[2017-06-25] MEDS ORDERED: FILTER, DISP 1.2 MICRON FOR TPN/PVN IV PRN (17:00)
[2017-06-25] MEDS ORDERED: DEXTROSE 70% IV SCH (17:00)
[2017-06-25] MEDS ORDERED: AMINO ACID 10% IV SCH (17:00)
[2017-06-25 20:08] VITALS: BP 153/98
[2017-06-26 02:34] VITALS: BP 154/97
[2017-06-26] MEDS: FENTANYL PF 100 MCG/2ML IVPush PRN ×6 (02:39→22:52)
[2017-06-26] MEDS: METOCLOPRAMIDE 5 MG/ML, 2ML IV SCH ×4 (04:56→22:40)
[2017-06-26 05:11] LABS: HEMATOCRIT 36.1 % (34.6-47.8); HEMOGLOBIN 11.8 g/dL (11.7-16.4); WHITE BLOOD COUNT 5.5 x10^3/uL (3.4-10)
[2017-06-26] MEDS: METOPROLOL TARTRATE 25 MG TABLET PO SCH ×2 (05:46→18:02)
[2017-06-26] MEDS: INSULIN REGULAR 100 UNITS/ML, 3ML VIAL SQ-INSULIN SCH (07:38)
[2017-06-26 07:49] VITALS: BP 138/98
[2017-06-26] MEDS: PANTOPRAZOLE 40 MG IV IVPush SCH (08:02)
[2017-06-26] MEDS: HEPARIN 5,000 UNITS/ML, 1ML SQ SCH ×2 (08:02→16:24)
[2017-06-26] MEDS: AMLODIPINE 5 MG TABLET PO SCH ×2 (08:02→20:31)
[2017-06-26] MEDS ORDERED: FILTER, DISP 1.2 MICRON FOR TPN/PVN IV PRN (09:00)
[2017-06-26] MEDS: ONDANSETRON 2MG/ML, 2ML IVPush PRN ×2 (09:15→16:24)
[2017-06-26] MEDS ORDERED: OMNIPAQUE 350 MG/ML, 100ML BOTTLE ONE (10:44)
[2017-06-26] MEDS: METHYLNALTREXONE 12 MG/0.6 ML SQ SCH (12:13)
[2017-06-26] MEDS: LINEZOLID PMX 600MG/300ML 300 ML IV SCH (12:13)
[2017-06-26 14:30] VITALS: BP 144/96
[2017-06-26] MEDS ORDERED: AMINO ACID 10% IV SCH (17:00)
[2017-06-26] MEDS ORDERED: FAT EMULSIONS IV SCH (17:00)
[2017-06-26] MEDS ORDERED: DEXTROSE 70% IV SCH (17:00)
[2017-06-26] MEDS ORDERED: [UNRECOGNIZED DRUG - OTHER] IV SCH (17:00)
[2017-06-26] MEDS: FENTANYL 75 MCG PATCH TD SCH (18:00)
[2017-06-26] MEDS: FENTANYL REMOVE PATCH NOTE XX SCH (18:07)
[2017-06-26] MEDS: SCOPOLAMINE PATCH, 1.5MG PATCH.TD72 TD SCH (18:07)
[2017-06-26 19:55] VITALS: BP 154/105
[2017-06-27] MEDS: HEPARIN 5,000 UNITS/ML, 1ML SQ SCH ×3 (00:31→16:11)
[2017-06-27] MEDS: METOCLOPRAMIDE 5 MG/ML, 2ML IV SCH (04:50)
[2017-06-27 05:36] VITALS: BP 135/92
[2017-06-27] MEDS: FENTANYL PF 100 MCG/2ML IVPush PRN ×4 (05:52→21:41)
[2017-06-27] MEDS: METOPROLOL TARTRATE 25 MG TABLET PO SCH ×2 (05:52→17:38)
[2017-06-27 06:21] LABS: HEMATOCRIT 36.8 % (34.6-47.8); WHITE BLOOD COUNT 5.7 x10^3/uL (3.4-10)
[2017-06-27 06:35] LABS: BLOOD UREA NITROGEN 14 mg/dL (7-18)
[2017-06-27 06:56] VITALS: BP 138/91
[2017-06-27] MEDS: INSULIN REGULAR 100 UNITS/ML, 3ML VIAL SQ-INSULIN SCH (08:45)
[2017-06-27] MEDS: PANTOPRAZOLE 40 MG IV IVPush SCH (08:46)
[2017-06-27] MEDS: AMLODIPINE 5 MG TABLET PO SCH ×2 (08:46→21:41)
[2017-06-27] MEDS ORDERED: BISACODYL 10 MG SUPP PR PRN (10:30)
[2017-06-27] MEDS: ONDANSETRON 2MG/ML, 2ML IVPush PRN (13:10)
[2017-06-27 14:00] VITALS: BP 136/94
[2017-06-27] MEDS ORDERED: [UNRECOGNIZED DRUG - OTHER] IV SCH ×2 (17:00)
[2017-06-27] MEDS ORDERED: FILTER, DISP 1.2 MICRON FOR TPN/PVN IV PRN (17:00)
[2017-06-27] MEDS ORDERED: DEXTROSE 70% IV SCH ×2 (17:00)
[2017-06-27] MEDS ORDERED: AMINO ACID 10% IV SCH ×2 (17:00)
[2017-06-27] MEDS ORDERED: FAT EMULSIONS IV SCH ×2 (17:00)
[2017-06-27 17:36] VITALS: BP 148/98
[2017-06-27 19:22] VITALS: BP 145/102
[2017-06-28 02:13] VITALS: BP 153/103
[2017-06-28] MEDS: FENTANYL PF 100 MCG/2ML IVPush PRN ×6 (02:14→20:33)
[2017-06-28 05:36] VITALS: BP 146/102
[2017-06-28] MEDS: METOPROLOL TARTRATE 25 MG TABLET PO SCH ×2 (05:37→18:05)
[2017-06-28] MEDS: ONDANSETRON 2MG/ML, 2ML IVPush PRN ×2 (06:02→12:41)
[2017-06-28 06:20] LABS: BLOOD UREA NITROGEN 12 mg/dL (7-18)
[2017-06-28] MEDS: INSULIN REGULAR 100 UNITS/ML, 3ML VIAL SQ-INSULIN SCH (07:55)
[2017-06-28 08:18] VITALS: BP 137/89
[2017-06-28] MEDS: HEPARIN 5,000 UNITS/ML, 1ML SQ SCH ×3 (08:22→16:43)
[2017-06-28] MEDS: AMLODIPINE 5 MG TABLET PO SCH ×2 (08:28→20:20)
[2017-06-28] MEDS: PANTOPRAZOLE 40 MG IV IVPush SCH (08:28)
[2017-06-28] MEDS: METHYLNALTREXONE 12 MG/0.6 ML SQ SCH (12:41)
[2017-06-28 14:30] VITALS: BP 141/94
[2017-06-28] MEDS ORDERED: AMINO ACID 10% IV SCH (17:00)
[2017-06-28] MEDS ORDERED: FILTER, DISP 1.2 MICRON FOR TPN/PVN IV PRN (17:00)
[2017-06-28] MEDS ORDERED: DEXTROSE 70% IV SCH (17:00)
[2017-06-28] MEDS ORDERED: FAT EMULSIONS IV SCH (17:00)
[2017-06-28] MEDS ORDERED: [UNRECOGNIZED DRUG - OTHER] IV SCH (17:00)
[2017-06-28 19:34] VITALS: BP 150/84
[2017-06-29] MEDS: HEPARIN 5,000 UNITS/ML, 1ML SQ SCH ×4 (00:29→23:54)
[2017-06-29] MEDS: FENTANYL PF 100 MCG/2ML IVPush PRN ×4 (00:35→10:34)
[2017-06-29 00:42] VITALS: BP 123/85
[2017-06-29 05:59] VITALS: BP 131/90
[2017-06-29] MEDS: METOPROLOL TARTRATE 25 MG TABLET PO SCH ×2 (06:00→17:48)
[2017-06-29 06:54] VITALS: BP 128/91
[2017-06-29] MEDS: AMLODIPINE 5 MG TABLET PO SCH ×2 (08:58→20:53)
[2017-06-29] MEDS: LINEZOLID 600 MG TABLET PO SCH ×2 (09:00→20:53)
[2017-06-29] MEDS: INSULIN REGULAR 100 UNITS/ML, 3ML VIAL SQ-INSULIN SCH (09:19)
[2017-06-29] MEDS: PANTOPRAZOLE 40 MG IV IVPush SCH (09:20)
[2017-06-29] MEDS: ONDANSETRON 2MG/ML, 2ML IVPush PRN ×2 (09:45→19:12)
[2017-06-29] MEDS: MICAFUNGIN 100 MG in SODIUM CHLORIDE 0.9% 100 ML IV SCH (10:34)
[2017-06-29] MEDS ORDERED: HYDROcodone/CHLORPHENIR ORAL SUSP PO PRN (13:30)
[2017-06-29] MEDS: OXYcodone 5 MG/5 ML ORAL.SOL UDC PO PRN ×2 (14:22→21:04)
[2017-06-29 14:33] VITALS: BP 137/86
[2017-06-29] MEDS ORDERED: AMINO ACID 10% IV SCH (17:00)
[2017-06-29] MEDS ORDERED: FILTER, DISP 1.2 MICRON FOR TPN/PVN IV PRN (17:00)
[2017-06-29] MEDS ORDERED: [UNRECOGNIZED DRUG - OTHER] IV SCH (17:00)
[2017-06-29] MEDS ORDERED: DEXTROSE 70% IV SCH (17:00)
[2017-06-29] MEDS ORDERED: FAT EMULSIONS IV SCH (17:00)
[2017-06-29] MEDS: SCOPOLAMINE PATCH, 1.5MG PATCH.TD72 TD SCH (17:53)
[2017-06-29 19:48] VITALS: BP 148/73
[2017-06-30 01:15] VITALS: BP 137/90
[2017-06-30] MEDS: ONDANSETRON 2MG/ML, 2ML IVPush PRN ×2 (02:17→09:46)
[2017-06-30] MEDS: LORazepam 2 MG/ML, 1ML IVPush PRN (02:17)
[2017-06-30 05:44] VITALS: BP 125/86
[2017-06-30] MEDS: METOPROLOL TARTRATE 25 MG TABLET PO SCH ×2 (05:45→17:32)
[2017-06-30 07:45] VITALS: BP 123/85
[2017-06-30] MEDS: INSULIN REGULAR 100 UNITS/ML, 3ML VIAL SQ-INSULIN SCH (09:44)
[2017-06-30] MEDS: AMLODIPINE 5 MG TABLET PO SCH ×2 (09:44→22:12)
[2017-06-30] MEDS: PANTOPRAZOLE 40 MG IV IVPush SCH (09:45)
[2017-06-30] MEDS: HEPARIN 5,000 UNITS/ML, 1ML SQ SCH ×3 (09:46→23:56)
[2017-06-30] MEDS: OXYcodone 5 MG/5 ML ORAL.SOL UDC PO PRN ×3 (09:46→22:12)
[2017-06-30] MEDS: LINEZOLID 600 MG TABLET PO SCH ×2 (09:46→22:12)
[2017-06-30] MEDS: MICAFUNGIN 100 MG in SODIUM CHLORIDE 0.9% 100 ML IV SCH (09:54)
[2017-06-30] MEDS: DRONABINOL 5 MG CAPSULE PO SCH ×2 (12:18→22:12)
[2017-06-30] MEDS: SUCRALFATE 1 GM/10 ML UDC PO SCH ×3 (12:19→22:12)
[2017-06-30] MEDS: METHYLNALTREXONE 12 MG/0.6 ML SQ SCH (12:19)
[2017-06-30 14:00] VITALS: BP 135/90
[2017-06-30] MEDS ORDERED: FILTER, DISP 1.2 MICRON FOR TPN/PVN IV PRN (17:00)
[2017-06-30] MEDS ORDERED: [UNRECOGNIZED DRUG - OTHER] IV SCH (17:00)
[2017-06-30] MEDS ORDERED: AMINO ACID 10% IV SCH (17:00)
[2017-06-30] MEDS ORDERED: FAT EMULSIONS IV SCH (17:00)
[2017-06-30] MEDS ORDERED: DEXTROSE 70% IV SCH (17:00)
[2017-06-30 19:11] VITALS: BP 143/90
[2017-07-01 01:34] VITALS: BP 119/83
[2017-07-01] MEDS: LORazepam 2 MG/ML, 1ML IVPush PRN (01:59)
[2017-07-01] MEDS: OXYcodone 5 MG/5 ML ORAL.SOL UDC PO PRN ×5 (03:51→22:24)
[2017-07-01 06:27] LABS: BLOOD UREA NITROGEN 14 mg/dL (7-18)
[2017-07-01 06:40] VITALS: BP 140/93
[2017-07-01] MEDS: METOPROLOL TARTRATE 25 MG TABLET PO SCH ×2 (06:43→18:13)
[2017-07-01] MEDS: HEPARIN 5,000 UNITS/ML, 1ML SQ SCH ×2 (08:00→16:00)
[2017-07-01] MEDS: SUCRALFATE 1 GM/10 ML UDC PO SCH ×4 (08:29→22:24)
[2017-07-01] MEDS: PANTOPRAZOLE 40 MG IV IVPush SCH (08:29)
[2017-07-01] MEDS: AMLODIPINE 5 MG TABLET PO SCH ×2 (08:29→21:00)
[2017-07-01] MEDS: DRONABINOL 5 MG CAPSULE PO SCH ×2 (08:29→22:24)
[2017-07-01] MEDS: LINEZOLID 600 MG TABLET PO SCH ×2 (08:29→22:24)
[2017-07-01] MEDS: INSULIN REGULAR 100 UNITS/ML, 3ML VIAL SQ-INSULIN SCH (08:39)
[2017-07-01] MEDS: ONDANSETRON 2MG/ML, 2ML IVPush PRN (09:14)
[2017-07-01] MEDS: MICAFUNGIN 100 MG in SODIUM CHLORIDE 0.9% 100 ML IV SCH (09:15)
[2017-07-01] MEDS ORDERED: DEXTROSE 50%, 50ML SYRINGE IVPush PRN (15:00)
[2017-07-01] MEDS ORDERED: PHARMACY MAY ADJ FOR RENAL FX MC SCH (15:00)
[2017-07-01] MEDS ORDERED: TPN PER PHARMACY MC PRN (15:00)
[2017-07-01] MEDS ORDERED: ACETAMINOPHEN 650 MG SUPP PR PRN (15:00)
[2017-07-01 15:45] VITALS: BP 136/99
[2017-07-01] MEDS: FILTER, DISP 1.2 MICRON FOR TPN/PVN IV PRN (16:12)
[2017-07-01] MEDS ORDERED: DEXTROSE 70% IV SCH (17:00)
[2017-07-01] MEDS ORDERED: AMINO ACID 10% IV SCH (17:00)
[2017-07-01] MEDS ORDERED: [UNRECOGNIZED DRUG - OTHER] IV SCH (17:00)
[2017-07-01] MEDS ORDERED: FAT EMULSIONS IV SCH (17:00)
[2017-07-01 18:56] VITALS: BP 133/87
[2017-07-01 22:27] VITALS: BP 126/82
[2017-07-02] MEDS: LORazepam 2 MG/ML, 1ML IVPush PRN (01:20)
[2017-07-02 02:22] VITALS: BP 142/90
[2017-07-02 06:02] VITALS: BP 129/92
[2017-07-02 06:16] LABS: ASPARTATE AMINO TRANSFERASE 77 U/L (15-37); BLOOD UREA NITROGEN 16 mg/dL (7-18)
[2017-07-02] MEDS: METOPROLOL TARTRATE 25 MG TABLET PO SCH ×2 (06:33→18:07)
[2017-07-02] MEDS: SUCRALFATE 1 GM/10 ML UDC PO SCH ×4 (06:33→22:02)
[2017-07-02] MEDS: HEPARIN 5,000 UNITS/ML, 1ML SQ SCH ×2 (07:58)
[2017-07-02] MEDS: PANTOPRAZOLE 40 MG IV IVPush SCH (07:58)
[2017-07-02 08:36] VITALS: BP 138/95
[2017-07-02] MEDS: INSULIN REGULAR 100 UNITS/ML, 3ML VIAL SQ-INSULIN SCH (09:00)
[2017-07-02] MEDS: AMLODIPINE 5 MG TABLET PO SCH ×2 (09:03→22:02)
[2017-07-02] MEDS: LINEZOLID 600 MG TABLET PO SCH (09:03)
[2017-07-02] MEDS: DRONABINOL 5 MG CAPSULE PO SCH ×2 (09:03→22:02)
[2017-07-02] MEDS: MICAFUNGIN 100 MG in SODIUM CHLORIDE 0.9% 100 ML IV SCH (09:04)
[2017-07-02] MEDS: ONDANSETRON 2MG/ML, 2ML IVPush PRN (09:06)
[2017-07-02] MEDS: OXYcodone 5 MG/5 ML ORAL.SOL UDC PO PRN ×3 (11:39→22:02)
[2017-07-02] MEDS: METHYLNALTREXONE 12 MG/0.6 ML SQ SCH (13:00)
[2017-07-02 14:45] VITALS: BP 132/96
[2017-07-02] MEDS ORDERED: FAT EMULSIONS IV SCH (17:00)
[2017-07-02] MEDS ORDERED: [UNRECOGNIZED DRUG - OTHER] IV SCH (17:00)
[2017-07-02] MEDS ORDERED: AMINO ACID 10% IV SCH (17:00)
[2017-07-02] MEDS ORDERED: DEXTROSE 70% IV SCH (17:00)
[2017-07-02] MEDS: FILTER, DISP 1.2 MICRON FOR TPN/PVN IV PRN (17:06)
[2017-07-02] MEDS: SCOPOLAMINE PATCH, 1.5MG PATCH.TD72 TD SCH (18:00)
[2017-07-02 19:49] VITALS: BP 131/83
[2017-07-03] MEDS: LORazepam 2 MG/ML, 1ML IVPush PRN (01:41)
[2017-07-03 02:54] VITALS: BP 116/78
[2017-07-03 06:10] VITALS: BP 139/89
[2017-07-03] MEDS: METOPROLOL TARTRATE 25 MG TABLET PO SCH ×2 (06:12→17:00)
[2017-07-03] MEDS: SUCRALFATE 1 GM/10 ML UDC PO SCH ×4 (06:12→21:11)
[2017-07-03] MEDS: PANTOPRAZOLE 40 MG IV IVPush SCH (08:13)
[2017-07-03] MEDS: INSULIN REGULAR 100 UNITS/ML, 3ML VIAL SQ-INSULIN SCH (08:21)
[2017-07-03 09:13] VITALS: BP 143/98
[2017-07-03] MEDS: AMLODIPINE 5 MG TABLET PO SCH ×2 (09:13→21:11)
[2017-07-03] MEDS: DRONABINOL 5 MG CAPSULE PO SCH ×2 (09:13→21:11)
[2017-07-03] MEDS: ONDANSETRON 2MG/ML, 2ML IVPush PRN ×2 (10:15→22:28)
[2017-07-03] MEDS: OXYcodone 5 MG/5 ML ORAL.SOL UDC PO PRN ×3 (11:55→21:11)
[2017-07-03 15:00] VITALS: BP 134/88
[2017-07-03] MEDS ORDERED: DEXTROSE 70% IV SCH (17:00)
[2017-07-03] MEDS: PANCRELIPASE 5000 CAPSULE.DR PO SCH (17:00)
[2017-07-03] MEDS ORDERED: AMINO ACID 10% IV SCH (17:00)
[2017-07-03] MEDS ORDERED: FAT EMULSIONS IV SCH (17:00)
[2017-07-03] MEDS ORDERED: [UNRECOGNIZED DRUG - OTHER] IV SCH (17:00)
[2017-07-03] MEDS: FILTER, DISP 1.2 MICRON FOR TPN/PVN IV PRN (17:00)
[2017-07-03 20:37] VITALS: BP 135/88
[2017-07-04] MEDS: LORazepam 2 MG/ML, 1ML IVPush PRN (00:10)
[2017-07-04 03:10] VITALS: BP 104/72
[2017-07-04] MEDS: OXYcodone 5 MG/5 ML ORAL.SOL UDC PO PRN ×2 (03:52→09:18)
[2017-07-04 04:53] LABS: BLOOD UREA NITROGEN 17 mg/dL (7-18)
[2017-07-04] MEDS: SUCRALFATE 1 GM/10 ML UDC PO SCH ×2 (06:22→11:06)
[2017-07-04 06:25] VITALS: BP 113/78
[2017-07-04] MEDS: METOPROLOL TARTRATE 25 MG TABLET PO SCH (06:26)
[2017-07-04] MEDS: PANCRELIPASE 5000 CAPSULE.DR PO SCH (09:19)
[2017-07-04] MEDS: AMLODIPINE 5 MG TABLET PO SCH (09:19)
[2017-07-04] MEDS: DRONABINOL 5 MG CAPSULE PO SCH (09:20)
[2017-07-04] MEDS: PANTOPRAZOLE 40 MG IV IVPush SCH (09:20)
[2017-07-04] MEDS: INSULIN REGULAR 100 UNITS/ML, 3ML VIAL SQ-INSULIN SCH (09:24)
[2017-07-04 09:26] VITALS: BP 126/86
[2017-07-04] MEDS ORDERED: Tpn Per Pharmacy MC (10:32)
[2017-07-04] MEDS ORDERED: METO25TA35 PO (10:32)
[2017-07-04] MEDS ORDERED: OXYC5SOL8 PO (10:32)
[2017-07-04] MEDS ORDERED: PANT40TA5 PO (10:32)
[2017-07-04] MEDS ORDERED: INSU100V5 SQ-INSULIN (10:32)
[2017-07-04] MEDS ORDERED: SUCR1ORA5 PO (10:32)
[2017-07-04] MEDS ORDERED: LIPA1CAP17 PO (10:32)
[2017-07-04] MEDS ORDERED: SCOP1PAT TD (10:32)
[2017-07-04] MEDS ORDERED: DRON5CAP15 PO (10:32)
[2017-07-04] MEDS ORDERED: HYDR473S55 PO (10:32)
[2017-07-04] MEDS ORDERED: INSU100C5 SQ-INSULIN (10:43)
[2017-07-04 11:07] VITALS: BP 134/91
== END 2017-07-04 12:28 | DRG 853 ==
LOC: 4WST 17:04 → CCU 05-24 19:26 → 4NOR 06-07 15:51
PROVIDERS: ADMIT Internal Medicine; ATTEND Internal Medicine
PROC: 0T9B70Z Drainage of Bladder with Drainage Device, Via Natural or Artificial Opening (ICD-10-PCS; 2017-05-21)
PROC: 30233N1 Transfusion of Nonautologous Red Blood Cells into Peripheral Vein, Percutaneous Approach (ICD-10-PCS; 2017-05-23)
PROC: 0W9G0ZZ Drainage of Peritoneal Cavity, Open Approach (ICD-10-PCS; 2017-05-24)
PROC: 30233N1 Transfusion of Nonautologous Red Blood Cells into Peripheral Vein, Percutaneous Approach (ICD-10-PCS; 2017-05-27)
PROC: 30233R1 Transfusion of Nonautologous Platelets into Peripheral Vein, Percutaneous Approach (ICD-10-PCS; 2017-05-27)
PROC: 0WCG0ZZ Extirpation of Matter from Peritoneal Cavity, Open Approach (ICD-10-PCS; principal; 2017-05-28)
PROC: 5A1955Z Respiratory Ventilation, Greater than 96 Consecutive Hours (ICD-10-PCS; 2017-05-28)
PROC: 0BH17EZ Insertion of Endotracheal Airway into Trachea, Via Natural or Artificial Opening (ICD-10-PCS; 2017-05-28)
PROC: 30233N1 Transfusion of Nonautologous Red Blood Cells into Peripheral Vein, Percutaneous Approach (ICD-10-PCS; 2017-05-28)
PROC: 30233K1 Transfusion of Nonautologous Frozen Plasma into Peripheral Vein, Percutaneous Approach (ICD-10-PCS; 2017-05-28)
PROC: 0W9G30Z Drainage of Peritoneal Cavity with Drainage Device, Percutaneous Approach (ICD-10-PCS; 2017-06-07)
PROC: 0W9G30Z Drainage of Peritoneal Cavity with Drainage Device, Percutaneous Approach (ICD-10-PCS; 2017-06-20)
DX: A41.9 Sepsis, unspecified organism (principal); K65.3 Choleperitonitis; J96.00 Acute respiratory failure, unspecified whether with hypoxia or hypercapnia; E43 Unspecified severe protein-calorie malnutrition; J18.9 Pneumonia, unspecified organism; K65.1 Peritoneal abscess; Z99.11 Dependence on respirator [ventilator] status; K85.10 Biliary acute pancreatitis without necrosis or infection; K86.3 Pseudocyst of pancreas; E87.0 Hyperosmolality and hypernatremia; D68.9 Coagulation defect, unspecified; R18.8 Other ascites; D62 Acute posthemorrhagic anemia; J98.11 Atelectasis; K56.7 Ileus, unspecified; I10 Essential (primary) hypertension; K76.0 Fatty (change of) liver, not elsewhere classified; N83.209 Unspecified ovarian cyst, unspecified side; E66.9 Obesity, unspecified; J45.909 Unspecified asthma, uncomplicated; D63.8 Anemia in other chronic diseases classified elsewhere; D75.89 Other specified diseases of blood and blood-forming organs; F41.9 Anxiety disorder, unspecified; F43.21 Adjustment disorder with depressed mood; K21.9 Gastro-esophageal reflux disease without esophagitis; Z51.5 Encounter for palliative care; Z88.5 Allergy status to narcotic agent; Z90.49 Acquired absence of other specified parts of digestive tract; Z82.49 Family history of ischemic heart disease and other diseases of the circulatory system; Z76.5 Malingerer [conscious simulation]
CPT/HCPCS: 36415; 36600; 49405; 49406; 71010; 74174; 74176; 74177; 74220; 74241; 75989; 80047; 80048; 80053; 81001; 82150; 82247; 82248; 82330; 82803; 82947; 82962; 83690; 83735; 84100; 84132; 84134; 84145; 84295; 84478; 84703; 85014; 85018; 85025; 85610; 85651; 85730; 86140; 86850; 86900; 86923; 87015; 87040; 87070; 87075; 87077; 87081; 87086; 87106; 87116; 87186; 87205; 87206; 87324; 93970; 94002; 94003; 94640; 99156; 99157; C1729; J0295; J0610; J1170; J1644; J1650; J1815; J1940; J2020; J2185; J2248; J2250; J2405; J2550; J2704; J2710; J3010; J3475; J3480; J3490; J7608; J7620; P9045; Q0167; Q9967; C1760; C1769; C9113; J0330; J0360; J2060; J2310; J2370; J2765; J3420; J7030; J7040; J7050; P9016; P9017; P9035